=== PATIENT | female | born 1940 | race Caucasian/White ===

== ENCOUNTER → 2016-06-22 | Outpatient (CLI) | payer MEDICARE, BC | END | disposition home or self-care (01) | LOC: LABWHC1 13:19 | PROVIDERS: ATTEND Family Medicine | DX: K52.9 Noninfective gastroenteritis and colitis, unspecified (principal) | CPT/HCPCS: 87324; 87328; 87329 ==

== ENCOUNTER → 2016-07-29 | Outpatient (CLI) | payer MEDICARE, BC ==
[2016-07-29 10:40] LABS: Blood Urea Nitrogen 14 mg/dL (7-17); Non-African American GFR(MDRD) >60 (>60 ml/min/1.73 sqM)
--- NOTE | 2016-08-01 10:27 | MM ---
Reason for exam: screening (asymptomatic). Last mammogram was performed 7 years and 8 months ago. History: Patient is postmenopausal. Taking estrogen for 14 years 6 months. MG 3D Screening Mammo W/Cad Bilateral CC and MLO view(s) were taken. Prior study comparison: November 27, 2008, bilateral digital screening mammogram. November 27, 2007, bilateral digital screening mammogram. The breast tissue is heterogeneously dense. This may lower the sensitivity of mammography. There is chronic nodularity in the right breast. No significant changes when compared with prior studies. ASSESSMENT: Benign, BI-RAD 2 RECOMMENDATION: Routine screening mammogram of both breasts in 1 year.
--- NOTE | 2016-08-03 15:58 | CT ---
EXAMINATION TYPE: CT chest w con DATE OF EXAM: 07/29/2016 COMPARISON: Outside chest CT April 05, 2016 HISTORY: Follow up nodule per patient CT DLP: 672 mGycm. Automated Exposure Control for Dose Reduction was Utilized. TECHNIQUE: CT scan of the thorax is performed following with IV Contrast, patient injected with 100 mL of Omnipaque 300. FINDINGS: LUNGS: There is redemonstration of elevated right hemidiaphragm. There is adjacent right basilar atel ectasis and/or consolidation it is slightly more nodular on single axial image 27 measuring 1.2 x 0.8 cm but most likely still related to rounded atelectatic change. Previously visualized 4 mm vague den sity is not clearly seen, suspect volume averaging. A few scattered micronodules remain present. Ther e is calcified 3 mm nodule in the medial left upper lobe on axial image 11. There is some linear scar ring in the lingula redemonstrated. No new suspicious nodules or masses are present. No pleural effus ion or pneumothorax is noted. MEDIASTINUM: There are no greater than 1 cm hilar or mediastinal lymph nodes. Some small scattered th oracic lymph nodes are redemonstrated. No cardiomegaly or pericardial effusion is seen. Right thyr oid is not visualized and presumed surgically absent. Inferior to left thyroid there is heterogeneous 1.7 x 1.5 cm nodule peripheral hyperdensity and central hypodensity uncertain etiology not significa ntly changed from prior. OTHER: Cholecystectomy clips are redemonstrated. Liver remains low dense suggesting fatty infiltratio n. There is moderate multilevel spurring in the lower thoracic spine redemonstrated. A small hiatal h ernia is again seen. IMPRESSION: 1. Overall stable findings, right basilar finding likely reflects rounded atelectasis adjacent to are a of atelectasis related to elevated right hemidiaphragm. PET/CT can be performed to exclude hypermet abolic uptake. Neoplastic nodule felt much less likely. No new mass or adenopathy is seen. 2. Anterior superior mediastinal mass redemonstrated unchanged in appearance, differential includes e xtrathyroidal tissue, necrotic lymph node, or parathyroid lesion as noted on prior report.
== END | disposition home or self-care (01) ==
LOC: RADMAMWWP 10:08
PROVIDERS: ATTEND Family Medicine
DX: Z12.31 Encounter for screening mammogram for malignant neoplasm of breast (principal); R22.2 Localized swelling, mass and lump, trunk
CPT/HCPCS: 82565; 84520; 77063; 71260; 36415; G0202; Q9967

== ENCOUNTER 2016-08-01 07:15 | Day surgery (SDC) | payer MEDICARE, BC ==
[2016-07-28 11:34] VITALS: BMI 43.3
[~2016-08-01 07:15] MED LIST: LACTATED RINGERS 1,000 ML IV SCH
[2016-08-01 07:51] VITALS: RESP 16; TEMP 97.7
[2016-08-01] MEDS ORDERED: LIDOCAINE 1% 20 ML VIAL (10MG/ML) FOR IV START SQ ONE (07:51)
[2016-08-01 07:54] LABS: Glucose,Whole Blood 133 mg/dL (75-99)
[2016-08-01] MEDS ORDERED: ONDANSETRON 4 MG/2 ML VIAL IVP ONE (07:56)
[2016-08-01] MEDS ORDERED: DEXAMETHASONE SOD PHOSPHATE 10 MG/ML 1 ML VIAL IV ONE (07:57)
[2016-08-01] MEDS ORDERED: LIDOCAINE 1% INJ 10MG/ML (20 ML MDV) ONE (08:30)
[2016-08-01] MEDS ORDERED: PROPOFOL 10 MG/ML 20 ML VIAL IV ONE (08:30)
--- NOTE | 2016-08-01 09:19 | P.PCN ---
Date of Procedure: 08/01/16 Preoperative Diagnosis: Postoperative Diagnosis: Procedure(s) Performed: Procedures: Esophagogastroduodenoscopy and biopsy. Preoperative diagnosis: Epigastric pain and diarrhea. Postoperative diagnosis: 1. Hiatal hernia with no obvious esophagitis or complicated reflux disease. 2. Mild antral gastritis. 3. Normal colonoscopy to the cecum. Preparation: HalfLytely prep. Sedation: Was provided by anesthesia. Brief clinical history: The patient is a 75-year-old female who I have evaluated in the office regarding diarrhea that she has been experiencing since winter as well as epigastric pain that she has been having for several weeks. She had a prior colonoscopy several years ago but no upper endoscopy. This evaluation is to assess for peptic ulcer disease, complicated reflux disease or bowel pathology. Procedure: With the patient on her left lateral decubitus position and after informed consent and adequate sedation, I passed the Olympus-GIF 160 video upper endoscope through the cricopharyngeus down the esophagus. GE junction was around 32 cm from the incisors and there was a 2-3 cm sliding hiatal hernia. The esophagus did not show any obvious erosions, ulcers or Ceron's esophagus. There was a benign nonobstructing stricture at the level of the GE junction. The endoscope was then passed into the stomach which was insufflated with air and inspected in detail including the retroflex view in the cardia. There was some mottling and erythema in the antrum but no ulcers or erosions. Pyloric channel, duodenal bulb, post bulbar area and descending duodenum appeared within normal limits. Because of her symptoms, I obtained biopsies from the duodenum, antrum and esophagus then the endoscope was withdrawn and I proceeded with the colonoscopy. Perianal area did not show any fissures or fistulas. There were no masses felt on digital rectal examination. The Olympus CFQ 160L video colonoscope was then inserted in the rectum in the usual fashion and advanced to the cecum. The mucosa appeared healthy. There was no obvious edema, erythema, friability, ulceration or spontaneous bleeding. No polyps or tumors were seen. No obvious diverticular disease. I obtained biopsies from the Right colon I then retroflexed the endoscope in the rectum before the endoscope was withdrawn. The patient tolerated the procedure well. Plan: The patient was reassured. Will await biopsy results and make further plans. I will keep you updated on her progress. Implants: Indications for Procedure: Operative Findings: Description of Procedure:
[2016-08-01 09:28] VITALS: BP 151/74; PULSE 74
[2016-08-01 09:28] LABS: Glucose,Whole Blood 119 mg/dL (75-99)
== END 2016-08-01 10:00 | disposition home or self-care (01) ==
LOC: ORWHC2ENDO 07:15
DX: K29.70 Gastritis, unspecified, without bleeding (principal); K44.9 Diaphragmatic hernia without obstruction or gangrene; R19.7 Diarrhea, unspecified; I10 Essential (primary) hypertension; E78.5 Hyperlipidemia, unspecified; E11.9 Type 2 diabetes mellitus without complications; Z79.84 Long term (current) use of oral hypoglycemic drugs; E07.9 Disorder of thyroid, unspecified; Z79.82 Long term (current) use of aspirin; Z79.899 Other long term (current) drug therapy
CPT/HCPCS: 88305; 88342; 45380; 43239; J1100; J2405; J2001; J2704

== ENCOUNTER → 2017-08-14 | Outpatient (CLI) | payer MEDICARE, BC ==
--- NOTE | 2017-08-14 16:33 | BD ---
EXAMINATION TYPE: Axial Bone Density DATE OF EXAM: 08/14/2017 COMPARISON: NONE CLINICAL HISTORY: 76-year-old female postmenopausal screening Height: 4 FT 11 IN Weight: 232 FRAX RISK QUESTIONS: Secondary Osteoporosis: 3. Menopause before 45: YES RISK FACTORS HISTORY OF: Postmenopausal woman: PARTIAL HYST AGE 42 Take estrogen and/or progesterone medications: YES How lon YEARS Lost more than 2 inches in height since high school: YES MEDICATIONS: Thyroid Medications: YES Which medication: SYNTHROID How Long: APPROX 10 YEARS Additional Medications: PREMARIN,SYNTHROID, AMLODIPINE, ZETIA, L-THYROXINE, JANUVIA, VIT D3, Additional History: EXAM MEASUREMENTS: Bone mineral densitometry was performed using the [employer] (TTN) System. Bone mineral density as measured about the Lumbar spine is: ----- L1-L4(G/cm2): 1.344 T Score Values are as follows: ----- L2: 1.9 ----- L3: 1.3 ----- L4: 0.9 ----- L1-L4: 1.4 BASELINE Bone mineral density about the R hip (g/cm2): 0.847 Bone mineral density about the L hip (g/cm2): 0.826 T Score values are as follows: -----R Neck: -1.4 -----L Neck: -1.5 -----R Total: 0.1 -----L Total: 0.2 BASELINE IMPRESSION: Osteopenia (T Score between -2.5 and -1). There is slightly increased risk of fracture and the patient may be considered for treatment. Re-Screen 2-5 years. NOTE: T-SCORE=SD OF THE YOUNG ADULT MEAN.
--- NOTE | 2017-08-15 09:55 | MM ---
Reason for exam: screening (asymptomatic). Last mammogram was performed 1 year and 1 month ago. History: Patient is postmenopausal. Taking estrogen for 26 years 6 months beginning at age 50. Physical Findings: A clinical breast exam by your physician is recommended on an annual basis and results should be correlated with mammographic findings. MG 3D Screening Mammo W/Cad Bilateral CC and MLO view(s) were taken. Prior study comparison: July 29, 2016, bilateral MG 3d screening mammo w/cad. November 27, 2008, bilateral digital screening mammogram. The breast tissue is heterogeneously dense. This may lower the sensitivity of mammography. Finding: There are grouped/clustered calcifications in the central position of the left breast. ASSESSMENT: Incomplete: need additional imaging evaluation, BI-RAD 0 RECOMMENDATION: Special view mammogram of the left breast. [facility] will attempt to contact patient to return for supplemental views.
== END | disposition home or self-care (01) ==
LOC: RADMAMWWP 11:30
PROVIDERS: ATTEND Family Medicine
DX: Z12.31 Encounter for screening mammogram for malignant neoplasm of breast (principal); M85.80 Other specified disorders of bone density and structure, unspecified site; Z78.0 Asymptomatic menopausal state
CPT/HCPCS: 77063; 77067; 77080

== ENCOUNTER → 2017-08-29 | Outpatient (CLI) | payer MEDICARE, BC ==
--- NOTE | 2017-08-29 14:16 | MM ---
Reason for exam: additional evaluation requested from abnormal screening. Last mammogram was performed less than 1 month ago. History: Patient is postmenopausal. Taking estrogen for 26 years 6 months beginning at age 50. Physical Findings: Nurse did not find any significant physical abnormalities on exam. MG 3D Work Up W/Cad LT LM, CC with magnification, and LM with magnification view(s) were taken of the left breast. Prior study comparison: August 14, 2017, bilateral MG 3d screening mammo w/cad. July 29, 2016, bilateral MG 3d screening mammo w/cad. November 27, 2008, bilateral digital screening mammogram. Finding: There are intermediate concern, suspicious coarse heterogeneous, grouped/clustered calcifications in the middle position of the left breast, persists on additional images. These results were verbally communicated with the patient and result sheet given to the patient on 08/29/17. ASSESSMENT: Suspicious, BI-RAD 4 RECOMMENDATION: Stereotactic core biopsy of the left breast. Called Dr. Beckford with mammographic findings and has scheduled an appointment for the patient for 08/31/17 at 8:[address] Kennedy. PRELIMINARY REPORT CALLED AND FAXED TO DR. KENNEDY ON 08/29/17.
== END | disposition home or self-care (01) ==
LOC: RADMAMWWP 12:26
PROVIDERS: ATTEND Family Medicine
DX: R92.8 Other abnormal and inconclusive findings on diagnostic imaging of breast (principal)
CPT/HCPCS: 77065; G0279; 77061

== ENCOUNTER → 2017-08-31 | Outpatient (CLI) | payer MEDICARE, BC ==
[2017-08-31 08:30] VITALS: BP 160/72; PULSE 71; BMI 45.5
--- NOTE | 2017-08-31 09:04 | P.GSHP ---
History of Present Illness H&P Date: 08/31/17 The patient is a 77-year-old white female who presents with a recent mammogram done 08/14/17. On the mammogram there was an area of concern in the left breast for which additional views were obtained. On the additional views the patient was noted to have intermediate concern suspicious coarse heterogeneous group clustered calcifications in the middle portion of the left breast. This was considered to be suspicious BIRADS 4 and a stereotactic core biopsy was recommended. The patient denies any pain or masses in her breasts. Was a question of a left nipple change noted by the nurse when she had her mammogram performed. The patient herself is not concerned and has no nipple discharge. Family history: no history of cancer menarche: 13 : 3, 3 children first born at 20, breast fed: none menopause: 50 BCP: 10 years hormones: Premarin at least 20 years, to control menopausal symptoms Past surgical history: 1. Right thyroid lobectomy 2. Cholecystectomy 3. Partial hysterectomy ovaries were not removed this was done for bleeding 4. Tonsillectomy 5. Tympanoplasty 6. Bilateral knee replacement Medical history: 1. Hypertension 2. High cholesterol Social history: Smoking: Negative alcohol: Negative Drugs: Negative - Constitutional Constitutional: Denies chills, Denies fever - EENT Eyes: denies blurred vision, denies pain Ears: bilateral: tinnitus (Occasional, status post tympanoplasty right ear drum) , deny: decreased hearing Ears, nose, mouth and throat: Denies headache, Denies sore throat - Breasts Breasts: bilateral: as per HPI - Cardiovascular Cardiovascular: Reports high blood pressure, Reports shortness of breath, Denies chest pain - Respiratory Respiratory: Denies cough, Denies 7 - Gastrointestinal Gastrointestinal: Denies abdominal pain, Denies diarrhea, Denies nausea, Denies vomiting - Genitourinary (Female) Genitourinary: Denies dysuria, Denies hematuria - Menstruation Menstruation: Reports post hysterectomy - Musculoskeletal Comment: Osteopenia, arthritis, muscle aches at times, bilateral lower extremity swelling - Integumentary Comment: Skin changes related to bilateral lower extremity lymphedema Integumentary: Denies pruritus, Denies rash - Neurological Neurological: Denies numbness, Denies weakness - Psychiatric Psychiatric: Denies anxiety, Denies depression - Endocrine Comment: diabetes Endocrine: Denies fatigue, Denies weight change - Hematologic/Lymphatic Comment: baby aspirin, fish oil - Allergic/Immunologic Comment: none Past Medical History Past Medical History: Diabetes Mellitus, Hyperlipidemia, Hypertension, Thyroid Disorder History of Any Multi-Drug Resistant Organisms: None Reported Past Surgical History: Ear Surgery, Hernia Repair, Hysterectomy, Orthopedic Surgery, Tonsillectomy Additional Past Surgical History / Comment(s): Gall Bladder Removed 2014 Smoking Status: Never smoker - Past Family History Mother Family Medical History: Diabetes Mellitus, Hypertension Father Family Medical History: Diabetes Mellitus, Hypertension Medications and Allergies Home Medications Medication Instructions Recorded Confirmed Type Acetaminophen [Tylenol Arthritis] 1,300 mg PO HS 07/28/16 08/01/16 History Aspirin [Children's Aspirin] 81 mg PO DAILY 07/28/16 08/01/16 History Cholecalciferol (Vitamin D3) 2,000 unit PO DAILY 07/28/16 08/01/16 History [Vitamin D3] Estrogens, Conjugated [Premarin] 1.25 mg PO HS 07/28/16 08/01/16 History Ezetimibe [Zetia] 10 mg PO HS 07/28/16 08/01/16 History Latanoprost [Xalatan 0.005%] 1 drop BOTH EYES HS 07/28/16 08/01/16 History Levothyroxine Sodium [Synthroid] 25 mcg PO QAM 07/28/16 08/01/16 History amLODIPine BESYLATE/BENAZEPRIL 1 cap PO HS 07/28/16 08/01/16 History [Lotrel 10-20 mg Capsule] metFORMIN HCL [Metformin HCl] 850 mg PO BID 07/28/16 08/01/16 History Allergies Allergy/AdvReac Type Severity Reaction Status Date / Time No Known Allergies Allergy Verified 08/01/16 07:33 Surgical - Exam Vital Signs Pulse BP Pulse Ox 71 160/72 96 08/31/17 08:20 08/31/17 08:20 08/31/17 08:20 - General obese - Eyes normal ocular movement, no icteric - ENT no hearing loss, no congestion - Neck no masses, trachea midline - Respiratory normal respiratory effort, clear to auscultation - Cardiovascular Rhythm: regular Heart Sounds: normal: S1, S2 - Abdomen Abdomen: soft, non tender, no guarding, no rigid, no rebound - Integumentary Bilateral lower extremity lymphedema below the knees with skin changes - Neurologic no disoriented, no combative - Musculoskeletal normal posture - Psychiatric oriented to time, oriented to person, oriented to place, speech is normal, memory intact Breast examination: Right breast: Multi-positional exam no dominant masses or nodules of concern Right axilla: No adenopathy of concern Left breast: Multiple positional exam a dominant masses or nodules of concern, small cystic change at the nipple area Left axilla: No adenopathy of concern Results Bone density reviewed Mammogram results reviewed Assessment and Plan Assessment: bilateral mammogram showing an area of increased microcalcifications in the left breast for which stereotactic core biopsy is recommended 2. Osteopenia on recent bone density 3. Hypertension 4. Diabetes 5. High cholesterol 6. Status post bilateral knee replacement 7. Bilateral lower extremity lymphedema Plan: 1. Stereotactic core biopsy area of microcalcifications in the left breast 2. Medical management of medical conditions 3. Patient has been seen and evaluated for lymphedema and will continue treatment for this in [place] Cc: Dr. Moises Beckford The risks and benefits of stereotactic core biopsy were discussed with the patient. She and her are planning on a trip within the next 2 weeks and would like to facilitate this as soon as possible. Additionally it has been discussed with the patient that she has been on low-dose aspirin and fish oil which she will have been off for 4 days prior to the procedure. She understands that she may be a slightly increased risk for hematoma secondary to this and wishes to proceed. Risks of the procedure include bleeding infection reaction to the anesthetic and possibility of not having an adequate sample she and her understand and wish to proceed.
== END | disposition home or self-care (01) ==
LOC: WWCWWP 08:14
PROVIDERS: ATTEND Surgery
DX: Z53.9 Procedure and treatment not carried out, unspecified reason (principal)

== ENCOUNTER → 2017-09-01 | Day surgery (SDC) | payer MEDICARE, BC ==
[2017-09-01 07:27] VITALS: RESP 16; BMI 44.5
--- NOTE | 2017-09-01 08:59 | MM ---
EXAMINATION TYPE: MG stereo VAD BX LT DATE OF EXAM: 09/01/2017 COMPARISON: 3-D mammogram from 3 days ago and older mammograms CLINICAL HISTORY: Abnormal mammogram TECHNIQUE: Stereotactic guided core biopsy of left breast. FINDINGS: The procedure of stereotactic guided core biopsy was explained to the patient. Benefits, alternatives, and risks were discussed. An informed consent was then obtained. [facility] Shortness pathway was lateral approach. I performed the localization, then surgeon, Dr. Knenedy performed the remainder of the procedure. A vacuum assisted biopsy gun was used to obtain multiple core samples. The patient tolerated the procedure well without any immediate complication. The patient was kept in the radiology department for short stay after the procedure and then discharged home in stable condition. Targeted calcifications are identified in specimen mammogram. Post biopsy mammogram shows the clip to appear in relative satisfactory position relative to the targeted area of concern on the preprocedure images. No significant residual calculi are seen. Perhaps clip is 1 to 2 cm laterally migrated. IMPRESSION: SUCCESSFUL, UNCOMPLICATED STEREOTACTIC GUIDED CORE BIOPSY OF AREA OF CONCERN IN THE LEFT BREAST, FULL PATHOLOGY RESULTS TO FOLLOW. Low to intermediate index of suspicion noted at time of procedure Pathology Results: High Risk LEFT BREAST, NEEDLE CORE BIOPSIES: Proliferative fibrocystic changes including moderate to florid duct hyperplasia, intraductal papillomatosis and duct ectasia. Intraductal mineralizations are identified. Recommendation Surgical consult of the left breast. (intraductal papillomatosis) MTDD
[2017-09-01 09:22] VITALS: BP 140/78; PULSE 77; TEMP 97.9
== END | disposition home or self-care (01) ==
LOC: RADMAMWWP 07:00
PROVIDERS: ATTEND Surgery
DX: D24.2 Benign neoplasm of left breast (principal); N60.92 Unspecified benign mammary dysplasia of left breast; N60.42 Mammary duct ectasia of left breast; N60.12 Diffuse cystic mastopathy of left breast
CPT/HCPCS: 88305; 19081; A4648; J2001

== ENCOUNTER → 2017-09-07 | Outpatient (CLI) | payer MEDICARE, BC ==
--- NOTE | 2017-09-07 14:40 | P.PN ---
Progress Note - Text Progress Note Date: 09/07/17 The patient is status post a left breast stereotactic core biopsy. Pathology revealed intraductal papillomatosis. The patient has no complaints related to the biopsy. Secondary to the fact there is intraductal papillomatosis an open biopsy and excision has been recommended. Physical examination: Patient has mild ecchymosis and small hematoma at the stereotactic core site. No evidence of any infection Impression/plan: 1. Stereotactic core biopsy revealing intraductal papilloma 2. Needle localization and excision the operating room recommended Risk and benefits of procedure been discussed with the patient and her and they wish to proceed. These include but are not limited to bleeding infection reaction to the anesthetic inability to localize the area and inability to retrieve the area of concern. CC: Dr. Moises Beckford
[2017-09-07 14:58] VITALS: BP 151/78; PULSE 81; TEMP 97.5; BMI 45.3
== END ==
LOC: WWCWWP 12:59
PROVIDERS: ATTEND Surgery
DX: Z53.9 Procedure and treatment not carried out, unspecified reason (principal)

== ENCOUNTER → 2017-09-08 | Outpatient (CLI) | payer MEDICARE, BC ==
--- NOTE | 2017-09-08 13:55 | CT ---
EXAMINATION TYPE: CT chest w con DATE OF EXAM: 09/08/2017 COMPARISON: 07/29/2016 HISTORY: Solitary pulmonary nodule CT DLP: 422.10 mGycm, Automated exposure control for dose reduction was used. CONTRAST: Performed injected with 100 ml mL of Isovue 300. TECHNIQUE: Axial images were obtained at 5 mm thick sections. Reconstructed images are reviewed on [employer] computer in the coronal plane. FINDINGS: Retrosternal extension of the left lobe thyroid is not excluded. This has a central hypoden sity. Peripherally enhancing mass could be considered. This measures 2.1 x 1.9 cm which is larger shannon n 1.7 x 1.5 cm previous. There appears to be a right lobectomy of the thyroid. Couple of scattered bulla are present. There is a 0.2 cm density on the anterior right midlung. Serie s 4 image 1. Streak opacities in the right. There is elevation of the right diaphragm No enlarged mediastinal or hilar adenopathy is evident. Small pretracheal measuring 0.7 cm is noted The ascending aorta diameter at the level of the main pulmonary artery is 3.5 cm. The main pulmonary artery diameter at the bifurcation is 2.[address] sections are obtained through the upper abdomen. There is moderate fatty infiltration live r. Hiatal hernia is present. IMPRESSIONS: 1. Enlarging retrosternal mass.
== END | disposition home or self-care (01) ==
LOC: RADCTMAIN 08:44
PROVIDERS: ATTEND Family Medicine
DX: J98.59 Other diseases of mediastinum, not elsewhere classified (principal)
CPT/HCPCS: 71260; Q9967

== ENCOUNTER 2017-09-12 06:34 | Day surgery (SDC) | payer MEDICARE, BC ==
[2017-09-08 10:56] VITALS: BMI 45.7
[~2017-09-12 06:34] MED LIST changes: +DEXAMETHASONE SOD PHOSPHATE 10 MG/ML 1 ML VIAL IV ONE; +HEPARIN SODIUM,PORCINE 5,000 UNIT/ML 1 ML VIAL SQ ONE; +MIDAZOLAM 2 MG/2 ML VIAL IV PRN; +ONDANSETRON 4 MG/2 ML VIAL IVP ONE; +SCOPOLAMINE 1.5MG/72HR PATCH TRANSDERM ONE; +ceFAZolin IN SWFI 2 GM/20 ML SYRINGE IVP ONE; +fentaNYL (PF) 50 MCG/ML 2 ML AMP IV PRN
[2017-09-12 07:13] LABS: Glucose,Whole Blood 135 mg/dL (75-99)
[2017-09-12] MEDS ORDERED: LIDOCAINE 1% 20 ML VIAL (10MG/ML) FOR IV START INTRADERMA ONE (07:14)
[2017-09-12] MEDS ORDERED: ALPRAZolam 0.25 MG TAB PO ONE (07:15)
[2017-09-12] MEDS ORDERED: SODIUM BICARB 4% 5 ML VIAL (0.48 MEQ/ML) MISCELLANE ONE (08:45)
[2017-09-12] MEDS ORDERED: LIDOCAINE 1% INJ 10MG/ML (20 ML MDV) SQ ONE (08:45)
[2017-09-12] MEDS ORDERED: ONDANSETRON 4 MG/2 ML VIAL ONE (09:42)
[2017-09-12] MEDS ORDERED: ePHEDrine SULFATE/0.9% NACL/PF 50 MG/5 ML SYRINGE IV ONE (09:42)
[2017-09-12] MEDS ORDERED: SUCCINYLCHOLINE CHLORIDE 100 MG/5 ML SYR IV ONE (09:42)
[2017-09-12] MEDS ORDERED: fentaNYL (PF) 50 MCG/ML 2 ML AMP ONE (09:42)
[2017-09-12] MEDS ORDERED: MIDAZOLAM 2 MG/2 ML VIAL ONE (09:42)
[2017-09-12] MEDS ORDERED: ROCURONIUM BROMIDE 10 MG/ML 10 ML VIAL IV ONE (09:42)
[2017-09-12] MEDS ORDERED: PROPOFOL 10 MG/ML 20 ML VIAL IV ONE (09:42)
[2017-09-12] MEDS ORDERED: LIDOCAINE 1% INJ 10MG/ML (20 ML MDV) ONE (09:42)
[2017-09-12] MEDS ORDERED: HEPARIN SODIUM,PORCINE 5,000 UNIT/ML 1 ML VIAL SQ ONE (09:46)
[2017-09-12] MEDS ORDERED: LIDOCAINE 1% (PF) 10 MG/ML (30 ML SDV) SQ ONE (10:06)
--- NOTE | 2017-09-12 11:08 | P.OP ---
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 Pathology revealed papillomatosis. Additionally the patient has an elevated area on the left nipple which appears to have blood underneath this. This was present prior to her stereotactic core biopsy. The patient was taken to the operating room and following induction of anesthesia the left breast was prepped and draped in a sterile fashion. An incision was made and carried down to the hook of the needle. Surrounding tissue was excised. Hemostasis was attained using the electrocautery device. Careful dissection followed this tissue anteriorly to the duct complex underneath the nipple. This area was removed. Small area of the skin of the nipple was removed as well. Dissection was performed posteriorly to the chest wall. After we were assured that hemostasis was attained the wound was well irrigated. The area was marked using titanium clips. Oculoplastic tissue rearrangement was performed to close the defect. Approximately 5 cm by 5 cm of tissue was mobilized. The deep spaces were closed using a 3-0 Vicryl suture. The subcutaneous tissue was closed using a 4-0 Vicryl suture. The skin was closed using a 4-0 Monocryl. Steri-Strips were applied. The specimen was painted for orientation. The specimen was sent for x-ray which confirmed that the area of concern had been removed. All instrument and sponge counts were correct at the end of the case. The patient tolerated the procedure in stable condition.
--- NOTE | 2017-09-12 11:11 | P.DS ---
Providers Attending physician: Chelsea Kennedy Primary care physician: Moises Beckford Plan - Discharge Summary New Discharge Prescriptions: No Action amLODIPine BESYLATE/BENAZEPRIL [Lotrel 10-20 mg Capsule] 1 cap PO HS Levothyroxine Sodium [Synthroid] 25 mcg PO QAM Ezetimibe [Zetia] 10 mg PO HS Latanoprost [Xalatan 0.005%] 1 drop BOTH EYES HS Cholecalciferol (Vitamin D3) [Vitamin D3] 2,000 unit PO DAILY Aspirin [Children's Aspirin] 81 mg PO DAILY Acetaminophen [Tylenol Arthritis] 1,300 mg PO HS Calcium Carbonate/Vitamin D3 [Calcium 600-Vit D3 500 Softgel] 1 cap PO BID Vitamin E Acetate [Vitamin E] 200 unit PO HS sitaGLIPtin PHOSPHATE [Januvia] 100 mg PO DAILY Discharge Medication List Acetaminophen [Tylenol Arthritis] 1,300 mg PO HS 07/28/16 [History] Aspirin [Children's Aspirin] 81 mg PO DAILY 07/28/16 [History] Cholecalciferol (Vitamin D3) [Vitamin D3] 2,000 unit PO DAILY 07/28/16 [History] Ezetimibe [Zetia] 10 mg PO HS 07/28/16 [History] Latanoprost [Xalatan 0.005%] 1 drop BOTH EYES HS 07/28/16 [History] Levothyroxine Sodium [Synthroid] 25 mcg PO QAM 07/28/16 [History] amLODIPine BESYLATE/BENAZEPRIL [Lotrel 10-20 mg Capsule] 1 cap PO HS 07/28/16 [ History] Calcium Carbonate/Vitamin D3 [Calcium 600-Vit D3 500 Softgel] 1 cap PO BID 08/31 [History] Vitamin E Acetate [Vitamin E] 200 unit PO HS 08/31/17 [History] sitaGLIPtin PHOSPHATE [Januvia] 100 mg PO DAILY 08/31/17 [History] Follow up Appointment(s)/Referral(s): Chelsea Kennedy MD [STAFF PHYSICIAN] - 1 Week Activity/Diet/Wound Care/Special Instructions: do not drive today may shower after 48 hours wear bra at all times Discharge Disposition: HOME SELF-CARE
[2017-09-12 11:24] VITALS: TEMP 98.4
[2017-09-12 11:33] VITALS: RESP 18
[2017-09-12] MEDS ORDERED: ACETAMINOPHEN TAB 325 MG TAB PO ONE (12:31)
[2017-09-12 13:04] VITALS: BP 158/69; PULSE 92
--- NOTE | 2017-09-12 17:13 | MM ---
EXAMINATION TYPE: MG pre op needle loc LT, MG surgical specimen LT DATE OF EXAM: 09/12/2017 COMPARISON: 08/14/2017 and 09/01/2017 CLINICAL HISTORY: 77-year-old female abnormal mammogram, biopsy proven papillomatosis TECHNIQUE: Needle localization with wire placement and surgical excision of area of concern in the left breast. FINDINGS: The procedure of needle localization with wire placement and than surgical excision was explained to the patient. Benefits, alternatives, and risks were discussed. An informed consent was then obtained. The shortest pathway for procedure was chosen. Shortest pathway was a lateral approach. The overlying skin was prepped and draped in usual sterile fashion. Lidocaine buffered with bicarbonate was used as anesthetic into the skin and subcutaneous tissue up to the level of area of concern. A 7 cm needle was used. It was placed via a lateral approach under mammographic guidance. A lateral approach was also chosen given the 1.5 to 2 cm of lateral clip migration. Subsequent 90 degrees mammogram show the needle to be in satisfactory position relative to the targeted area. At this point, wire was placed and the needle was withdrawn. The wire was fixed to patient's skin. Images were marked for surgeon. The wire was placed so that the tip of the wire is at the biopsy site. The clip falls along the mid aspect of the thick segment. The patient tolerated the procedure well without any immediate complication. The patient was kept in the radiology department for short stay after the procedure and then taken to surgery for surgical excision. Clip and wire are identified in specimen mammogram. An additional excision was performed of more medial tissue and is also included in the specimen container. The patient was kept in hospital for short stay after the procedure and then discharged home in stable condition. IMPRESSION: Successful, uncomplicated needle localization with wire placement and surgical excision of biopsy proven papillomatosis in the left breast, full pathology results to follow. Pathology Results: High Risk A. BREAST, LEFT, NEEDLE LOCALIZATION EXCISION: Intraductal papilloma closely approximating the purple/yellow (posterior/medial) margin, cannot exclude involvement of the margin. Proliferative fibrocystic changes including moderate to florid usual type ductal hyperplasia, cysts, fibrosis, sclerosing adenosis, fibroadenomatoid hyperplasia and apocrine metaplasia. Previous biopsy site. B. 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 Severely cauterized breast tissue with fibrosis. Evaluation limited due to severe cautery artifact. Recommendation Follow up mammogram of the left breast in 6 months. JENNIFERD
== END 2017-09-12 13:22 | disposition home or self-care (01) ==
LOC: OR 06:34
PROVIDERS: ATTEND Surgery
DX: D24.2 Benign neoplasm of left breast (principal); N60.32 Fibrosclerosis of left breast; N60.22 Fibroadenosis of left breast; N62 Hypertrophy of breast; N60.82 Other benign mammary dysplasias of left breast; M85.80 Other specified disorders of bone density and structure, unspecified site; I10 Essential (primary) hypertension; E11.9 Type 2 diabetes mellitus without complications; E78.00 Pure hypercholesterolemia, unspecified; E89.0 Postprocedural hypothyroidism; M19.90 Unspecified osteoarthritis, unspecified site; Z79.84 Long term (current) use of oral hypoglycemic drugs; Z79.82 Long term (current) use of aspirin; Z79.890 Hormone replacement therapy; Z79.899 Other long term (current) drug therapy; Z96.653 Presence of artificial knee joint, bilateral; Z90.710 Acquired absence of both cervix and uterus; Z90.49 Acquired absence of other specified parts of digestive tract
CPT/HCPCS: 19125; 88305; 88307; 76098; 19281; J2250; J1644; J1100; J2405; J2001 ×2; J3010; J0330; J2704; J0690

== ENCOUNTER → 2017-09-22 | Outpatient (CLI) | payer MEDICARE, BC ==
[2017-09-22 09:58] VITALS: PULSE 76; BMI 43.9
--- NOTE | 2017-09-22 10:03 | P.PN ---
Progress Note - Text Progress Note Date: 09/22/17 Patient is status post left breast needle localization and excisional biopsy of an intraductal papilloma found on stereo biopsy. Pathology was consistent with intraductal papilloma with possible encroachment on the margins. The patient at this time has no complaints related to the biopsy. Physical examination: Incision clean and dry mild ecchymosis I have discussed the case with pathology there is no atypia and at this time the patient is going to be followed conservatively. The patient is going to have a repeat left breast mammogram and physician exam in 6 months time. Plan: 1. Repeat left breast mammogram and physician exam in 6 months Cc: Dr. Moises Beckford
== END ==
LOC: WWCWWP 09:37
PROVIDERS: ATTEND Surgery
DX: Z53.9 Procedure and treatment not carried out, unspecified reason (principal)

== ENCOUNTER → 2018-07-04 | Outpatient (CLI) | payer MEDICARE ==
--- NOTE | 2018-07-04 10:49 | MM ---
Reason for exam: follow-up at short interval from prior study. Last mammogram was performed 10 months ago. History: Patient is postmenopausal and has history of high-risk lesion on a previous biopsy at age 77. High risk MG pre op needle loc LT of the left breast, September 12, 2017. High risk MG stereo VAD BX LT of the left breast, September 01, 2017. Taking estrogen for 26 years 6 months beginning at age 50. Physical Findings: Nurse did not find any significant physical abnormalities on exam. MG 3D Diag Mammo W/Cad LT CC, MLO, and XCCL view(s) were taken of the left breast. Prior study comparison: August 29, 2017, left breast MG 3d work up w/cad LT. August 14, 2017, bilateral MG 3d screening mammo w/cad. There are scattered fibroglandular densities. No significant new findings when compared with previous films. These results were verbally communicated with the patient and result sheet given to the patient on 07/04/18. ASSESSMENT: Benign, BI-RAD 2 RECOMMENDATION: Return to routine screening mammogram schedule for both breasts. Back on schedule for August 2018.
== END | disposition home or self-care (01) ==
LOC: RADMAMWWP 10:07
PROVIDERS: ATTEND Surgery
DX: R92.8 Other abnormal and inconclusive findings on diagnostic imaging of breast (principal)
CPT/HCPCS: 77065; G0279; 77061

== ENCOUNTER → 2018-07-06 | Outpatient (CLI) | payer MEDICARE ==
[2018-07-06 10:58] VITALS: BP 179/79; PULSE 77; RESP 18; TEMP 97.8; BMI 42.3
--- NOTE | 2018-07-06 11:14 | P.PN ---
Subjective Progress Note Date: 07/06/18 Principal diagnosis: Status post open biopsy of intraductal papilloma Juana is a 77-year-old white female who is status post needle local excisional biopsy of an left intraductal papilloma in August 2017. She is doing well at this time with no complaints. She had a left breast mammogram performed on . This was felt to be benign and repeat bilateral mammogram in August 2018 was recommended. Family history: Negative for cancer Hormonal history: Menarche: 13 first child born at 20, did not breast-feed Menopause: 50 control pills: 10 years Hormones: Premarin at least 20 years to control menopausal symptoms Past surgical history: 1. Right thyroid lobectomy 2. Cholecystectomy 3. Partial hysterectomy 4. Tonsillectomy 5. Tympanoplasty 6. Bilateral knee replacement Medical history: 1. Hypertension 2. High cholesterol Social history: Smoking: Negative Alcohol: Negative Drugs: Negative Review of systems: Constitutional: Negative HEENT: Cataracts developing in the right eye, wears glasses Lungs: Negative Heart: HTN GI: Negative : Negative Musculoskeletal: Arthritis Integument: Negative Endocrine: Diabetic Psychiatric: Negative Objective - Vital Signs Vital signs: Vital Signs Temp 97.8 F 07/06/18 10:54 Pulse 77 07/06/18 10:54 Resp 18 07/06/18 10:54 BP 179/79 07/06/18 10:54 Pulse Ox 96 07/06/18 10:54 Intake & Output 07/05/18 07/06/18 07/06/18 18:59 06:59 18:59 Weight 98.43 kg - Exam BMI 42.4 - Constitutional General appearance: Present: obese - EENT Eyes: Present: EOMI ENT: Present: hearing grossly normal - Neck Neck: Present: normal ROM - Respiratory Respiratory: bilateral: CTA - Cardiovascular Rhythm: regular Heart sounds: normal: S1, S2 - Gastrointestinal General gastrointestinal: Present: soft - Integumentary Integumentary Comment(s): no icterus Integumentary: Present: normal turgor - Musculoskeletal Musculoskeletal: Present: gait normal - Psychiatric Psychiatric: Present: A&O x's 3, appropriate affect, intact judgment & insight - Additional findings Additional findings: Breast Exam: right breast: Multi-positional exam no dominant mass or nodules of concern Right axilla: No adenopathy of concern Left breast: Well-healed scar from prior biopsy, multiple positional exam no dominant mass or nodules of concern Left axilla: No adenopathy of concern Assessment and Plan Assessment: Impression: 1. Fibrocystic breast changes 2. Osteopenia 3. Hypertension 4. Diabetes 5. High cholesterol 6. Bilateral knee replacement 7. Bilateral lower extremity lymphedema/treated in [place] and much improved Plan: 1. Right breast mammogram in August, follow-up. If any abnormalities noted in August 2. Bilateral mammogram in 1 year, physician appointment at that time here 3. Patient to call if any concerns Cc: Dr. Moises Beckford
== END | disposition home or self-care (01) ==
LOC: WWCWWP 10:30
PROVIDERS: ATTEND Surgery
DX: Z53.9 Procedure and treatment not carried out, unspecified reason (principal)

== ENCOUNTER → 2018-09-27 | Outpatient (CLI) | payer MEDICARE ==
--- NOTE | 2018-09-27 11:21 | MM ---
Reason for exam: follow-up at short interval from prior study. Last mammogram was performed 3 months ago. History: Patient is postmenopausal and has history of high-risk lesion on a previous biopsy at age 77. High risk MG pre op needle loc LT of the left breast, September 12, 2017. High risk MG stereo VAD BX LT of the left breast, September 01, 2017. Took estrogen for 26 years 6 months beginning at age 50. Physical Findings: Nurse did not find any significant physical abnormalities on exam. MG 3D Diag Mammo W/Cad RT CC, MLO, CC with magnification, MLO with magnification, and LM view(s) were taken of the right breast. Prior study comparison: July 04, 2018, left breast MG 3d diag mammo w/cad LT. August 29, 2017, left breast MG 3d work up w/cad LT. The breast tissue is heterogeneously dense. This may lower the sensitivity of mammography. There are right calcifications in the right upper outer quadrant at middle depth appear rounded in configuration and punctate. Left recent biopsy of sclerosing adenosis. 6 month follow up recommended. These results were verbally communicated with the patient and result sheet given to the patient on 09/27/18. ASSESSMENT: Probably benign, BI-RAD 3 RECOMMENDATION: Follow-up diagnostic mammogram of the right breast in 6 months.
== END | disposition home or self-care (01) ==
LOC: RADMAMWWP 09:21
PROVIDERS: ATTEND Surgery
DX: R92.8 Other abnormal and inconclusive findings on diagnostic imaging of breast (principal)
CPT/HCPCS: 77061; 77065

== ENCOUNTER → 2019-01-21 | Outpatient (CLI) | payer MEDICARE ==
[2019-01-21 16:47] LABS: African American GFR (CKD) >90 (>60 ml/min/1.73 sqM); Blood Urea Nitrogen 20 mg/dL (7-17); Non-African American GFR(CKD) 86 (>60 ml/min/1.73 sqM)
--- NOTE | 2019-01-22 07:01 | US ---
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 0.9 X 0.8 x 0.6 cm isoechoic solid nodule at the upper pole with well-defined margins; . This n odule is wider than tall and shows intranodular vascularity. Prior size: no prior 2. 0.8 X 0.6 x 0.9 cm mixed nodule at the mid pole with well-defined margins; . This nodule is wide r than tall and shows no intranodular vascularity. Prior size: no prior ISTHMUS: # of nodules measured in the isthmus: 0 Bilateral neck scanned, no evidence of lymphadenopathy. Multiple thyroid nodules noted left lobe with largest 2 measured IMPRESSION: Multiple left-sided thyroid nodules the largest measuring 9 mm. Thyroid tissue is heterogeneous corre late for thyroiditis.
--- NOTE | 2019-01-22 08:39 | CT ---
EXAMINATION TYPE: CT chest w con DATE OF EXAM: 01/21/2019 COMPARISON: 09/08/2017 and 07/29/2016 HISTORY: Anomalies of other endocrine glands. CT DLP: 423.2 mGycm. Automated Exposure Control for Dose Reduction was Utilized. TECHNIQUE: CT scan of the thorax is performed following with IV Contrast, patient injected with 100m l mL of Isovue 300. FINDINGS: LUNGS: The lungs are grossly clear, there is no concerning parenchymal mass or nodule identified. L inear pleural parenchymal scarring in the right middle lobe is seen. Calcified right basilar granulom a. Granuloma in the left lung apex appears calcified on the prior exam. Left apical bleb is seen. Rig ht basilar atelectasis is present along the elevated right hemidiaphragm. There is no pleural effusio n or pneumothorax seen. The tracheobronchial tree is patent. 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 This is questionably contiguous with the thyroid gland. No new mediastinal adenopathy. Calcified mediastinal lymph nodes from benign granulomatous change. No pericardial effusi on is seen. OTHER: Headache steatosis is partially visualized. Small hiatal hernia. Mild multilevel degenerative change of the spine. Gallbladder surgically absent. Post surgical change of the left breast. IMPRESSION: 1. Stable superior mediastinal mass in comparison to the prior of 09/08/2017, slightly enlarged from . Differential remains unchanged with possibilities including extrathyroidal tissue, exophyti c nodule, necrotic lymph node or parathyroid lesion. 2. Right hemidiaphragm elevation is chronic with right basilar atelectasis.
== END | disposition home or self-care (01) ==
LOC: RADUSWWP 15:27
PROVIDERS: ATTEND Family Medicine
DX: E04.2 Nontoxic multinodular goiter (principal); R22.2 Localized swelling, mass and lump, trunk; J98.11 Atelectasis; Q89.2 Congenital malformations of other endocrine glands; I10 Essential (primary) hypertension
CPT/HCPCS: 82565; 84520; 76536; 71260; 36415; Q9967

== ENCOUNTER 2019-05-17 11:45 | Emergency (ER) | payer MEDICARE ==
--- NOTE | 2019-05-17 12:08 | ED ---
General Adult HPI - General Chief complaint: Extremity Problem,Nontraumatic Stated complaint: L leg swelling Time Seen by Provider: 05/17/19 11:55 Source: patient, RN notes reviewed Mode of arrival: ambulatory Limitations: no limitations - History of Present Illness Initial comments: 78-year-old female with a past medical history of hyperlipidemia, hypertension, diabetes mellitus presents to the emergency department for a chief complaint of left lower leg swelling. Patient states that this has been ongoing for about one week and has associated redness. Patient states that she called her doctor and they were concerned for possible DVT versus cellulitis given patient recently drove from [place] to [place] about 3 weeks ago. Patient has not had a ny fevers or chills. Patient has a history of leg swelling but usually it is in both legs. States that she uses compression stockings wrist with the do not seem to be helping at this point. Patient does not have any slowing of the right leg. She denies shortness of breath or chest pain. Denies chest pain or shortness of breath.Patient has no other complaints at this time including shortness of breath, chest pain, abdominal pain, nausea or vomiting, headache, or visual changes. - Related Data Home Medications Medication Instructions Recorded Confirmed Acetaminophen [Tylenol Arthritis] 1,300 mg PO HS 07/28/16 07/06/18 Cholecalciferol (Vitamin D3) 2,000 unit PO DAILY 07/28/16 07/06/18 [Vitamin D3] Ezetimibe [Zetia] 10 mg PO HS 07/28/16 07/06/18 Latanoprost [Xalatan 0.005%] 1 drop BOTH EYES HS 07/28/16 07/06/18 Levothyroxine Sodium [Synthroid] 25 mcg PO QAM 07/28/16 07/06/18 amLODIPine BESYLATE/BENAZEPRIL 1 cap PO HS 07/28/16 07/06/18 [Lotrel 10-20 mg Capsule] Calcium Carbonate/Vitamin D3 1 cap PO BID 08/31/17 07/06/18 [Calcium 600-Vit D3 500 Softgel] Vitamin E Acetate [Vitamin E] 200 unit PO HS 08/31/17 07/06/18 sitaGLIPtin PHOSPHATE [Januvia] 100 mg PO DAILY 08/31/17 07/06/18 Previous Rx's Medication Instructions Recorded Cephalexin [Keflex] 500 mg PO Q6HR 10 Days #40 cap 05/17/19 Allergies Allergy/AdvReac Type Severity Reaction Status Date / Time No Known Allergies Allergy Verified 05/17/19 11:53 Review of Systems ROS Statement: Those systems with pertinent positive or pertinent negative responses have been documented in the HPI. ROS Other: All systems not noted in ROS Statement are negative. Past Medical History Past Medical History: Diabetes Mellitus, Hyperlipidemia, Hypertension, Thyroid Disorder Additional Past Medical History / Comment(s): GLAUCOMA. OSTEOPENIA. LOWER LEG EDEMA, REDNESS. History of Any Multi-Drug Resistant Organisms: C-DIFF Date of last positivie culture/infection: 2013 MDRO Source:: stool Past Surgical History: Cholecystectomy, Ear Surgery, Hysterectomy, Orthopedic S urgery, Tonsillectomy Additional Past Surgical History / Comment(s): bilateral knee replacements Past Anesthesia/Blood Transfusion Reactions: Postoperative Nausea & Vomiting (PONV) Past Psychological History: No Psychological Hx Reported Smoking Status: Never smoker Past Alcohol Use History: None Reported Past Drug Use History: None Reported - Past Family History Mother Family Medical History: Diabetes Mellitus, Hypertension Father Family Medical History: Cancer, Diabetes Mellitus, Hypertension General Exam Limitations: no limitations General appearance: alert, in no apparent distress Head exam: Present: atraumatic, normocephalic, normal inspection Eye exam: Present: normal appearance, PERRL, EOMI. Absent: scleral icterus, conjunctival injection, periorbital swelling ENT exam: Present: normal exam, mucous membranes moist Neck exam: Present: normal inspection, full ROM. Absent: tenderness, meningismus, lymphadenopathy Respiratory exam: Present: normal lung sounds bilaterally. Absent: respiratory distress, wheezes, rales, rhonchi, stridor Cardiovascular Exam: Present: regular rate, normal rhythm, normal heart sounds. Absent: systolic murmur, diastolic murmur, rubs, gallop, clicks GI/Abdominal exam: Present: soft, normal bowel sounds. Absent: distended, tenderness, guarding, rebound, rigid Extremities exam: Present: full ROM (Full range of motion of the left lower extremity.), normal capillary refill (Capillary refill less than 2 seconds, DP pulse 2+ in the left lower extremity.), calf tenderness (Minimal generalized calf tenderness as well as anterior lower extremity tenderness), other (There is mild nonpitting edema noted of the left lower extremity with mild erythema along the mid tibial area. Right lower extremity appears normal. There is no edema.). Absent: tenderness, pedal edema, joint swelling Neurological exam: Present: alert Course Vital Signs 05/17/19 11:47 Temperature 97.6 F Pulse Rate 101 H Respiratory 20 Rate Blood Pressure 180/91 O2 Sat by Pulse 95 Oximetry Medical Decision Making - Medical Decision Making Patient presents with some mild edema of the left lower extremity and mild erythema. Neurovascular status intact in the left lower extremity. CBC is unremarkable. CMP does show hyperglycemia, patient does have a history of diabetes and takes Januvia. Patient just ate prior to arrival and has been checking her blood sugar every morning when she wakes up. She will follow up with Dr. Beckford for this. Ultrasound of the left lower extremity is negative for DVT. Patient likely has a cellulitis. Borderline leukocytosis. She was treated with IV Rocephin here in the emergency department and started on Keflex. She will follow up with primary care in 1-2 days. She'll return here if she has worsening symptoms. I discussed this case with attending Dr. Mack who agrees with this assessment and treatment plan.H - Lab Data Result diagrams: 05/17/19 12:15 05/17/19 12:15 Lab Results 05/17/19 05/17/19 Range/Units 12:15 12:15 WBC 9.4 (3.8-10.6) k/uL RBC 5.63 H (3.80-5.40) m/uL Hgb 16.4 H (11.4-16.0) gm/dL Hct 49.9 H (34.0-46.0) % MCV 88.7 (80.0-100.0) fL MCH 29.2 (25.0-35.0) pg MCHC 32.9 (31.0-37.0) g/dL RDW 13.4 (11.5-15.5) % Plt Count 193 (150-450) k/uL Neutrophils % 61 % Lymphocytes % 30 % Monocytes % 4 % Eosinophils % 2 % Basophils % 0 % Neutrophils # 5.7 (1.3-7.7) k/uL Lymphocytes # 2.8 (1.0-4.8) k/uL Monocytes # 0.4 (0-1.0) k/uL Eosinophils # 0.2 (0-0.7) k/uL Basophils # 0.0 (0-0.2) k/uL Sodium 135 L (137-145) mmol/L Potassium 4.3 (3.5-5.1) mmol/L Chloride 101 (98-107) mmol/L Carbon Dioxide 27 (22-30) mmol/L Anion Gap 7 mmol/L BUN 17 (7-17) mg/dL Creatinine 0.65 (0.52-1.04) mg/dL Est GFR (CKD-EPI)AfAm >90 (>60 ml/min/1.73 sqM) Est GFR (CKD-EPI)NonAf 86 (>60 ml/min/1.73 sqM) Glucose 261 H (74-99) mg/dL Calcium 9.2 (8.4-10.2) mg/dL Disposition Clinical Impression: Cellulitis of left lower extremity Disposition: HOME SELF-CARE Condition: Good Instructions (If sedation given, give patient instructions): Cellulitis (ED) Additional Instructions: Please take antibiotic as directed. Give this about 24 hours to kick in. If the redness is spreading at that time return to the emergency department. Follow-up with your doctor in one to 2 days for a recheck. Return for any other worsening or concerning symptoms as well. Prescriptions: Cephalexin [Keflex] 500 mg PO Q6HR 10 Days #40 cap Is patient prescribed a controlled substance at d/c from ED?: No Referrals: Moises Beckford MD [Primary Care Provider] - 1-2 days Time of Disposition: 13:42
[2019-05-17 12:36] LABS: African American GFR (CKD) >90 (>60 ml/min/1.73 sqM); Anion Gap 7 mmol/L; Basophils % (A) 0 %; Blood Urea Nitrogen 17 mg/dL (7-17); Calcium 9.2 mg/dL (8.4-10.2); Carbon Dioxide 27 mmol/L (22-30); Chloride 101 mmol/L (98-107); Eosinophils # (A) 0.2 k/uL (0-0.7); Eosinophils % (A) 2 %; Glucose 261 mg/dL (74-99); HCT 49.9 % (34.0-46.0); HGB 16.4 gm/dL (11.4-16.0); Lymphocytes # (A) 2.8 k/uL (1.0-4.8); Lymphocytes % (A) 30 %; MCH 29.2 pg (25.0-35.0); MCHC 32.9 g/dL (31.0-37.0); MCV 88.7 fL (80.0-100.0); Mean Platelet Volume 10.2; Monocytes # (A) 0.4 k/uL (0-1.0); Monocytes % (A) 4 %; Neutrophils # (A) 5.7 k/uL (1.3-7.7); Neutrophils % (A) 61 %; Non-African American GFR(CKD) 86 (>60 ml/min/1.73 sqM); Platelet Count 193 k/uL (150-450); Potassium 4.3 mmol/L (3.5-5.1); RBC 5.63 m/uL (3.80-5.40); RDW 13.4 % (11.5-15.5); Sodium 135 mmol/L (137-145); WBC 9.4 k/uL (3.8-10.6)
--- NOTE | 2019-05-17 13:30 | US ---
EXAMINATION TYPE: US venous doppler duplex LE LT DATE OF EXAM: 05/17/2019 12:54 PM COMPARISON: NONE CLINICAL HISTORY: swelling. Left leg swelling x couple days SIDE PERFORMED: Left TECHNIQUE: The lower extremity deep venous system is examined utilizing real time linear array sonog lang with graded compression, doppler sonography and color-flow sonography. VESSELS IMAGED: External Iliac Vein (EIV) Common Femoral Vein Deep Femoral Vein Greater Saphenous Vein * Femoral Vein Popliteal Vein Small Saphenous Vein * Proximal Calf Veins (* superficial vessels) Left Leg: Appears negative for DVT IMPRESSION: 1. Left lower extremity ultrasound negative for deep venous thrombosis.
[2019-05-17] MEDS ORDERED: cefTRIAXone IN SWFI 1,000 MG/10 ML SYRINGE IVP STA (13:35)
[2019-05-17 14:05] VITALS: BP 160/79; PULSE 70; RESP 18; TEMP 98
== END 2019-05-17 14:05 | disposition home or self-care (01) ==
LOC: EC 11:45
DX: E11.65 Type 2 diabetes mellitus with hyperglycemia (principal); L03.116 Cellulitis of left lower limb; E78.5 Hyperlipidemia, unspecified; I10 Essential (primary) hypertension; H40.9 Unspecified glaucoma; E07.9 Disorder of thyroid, unspecified; Z96.653 Presence of artificial knee joint, bilateral; Z79.890 Hormone replacement therapy; Z79.84 Long term (current) use of oral hypoglycemic drugs; Z79.899 Other long term (current) drug therapy
CPT/HCPCS: 36415; 80048; 85025; 87040; 93971; 99284; 96374; J0696

== ENCOUNTER 2019-05-23 13:35 | Emergency (ER) | payer MEDICARE ==
[2019-05-23 13:53] VITALS: RESP 18
--- NOTE | 2019-05-23 14:47 | ED ---
General Adult HPI - General Chief complaint: Extremity Problem,Nontraumatic Stated complaint: Left leg swelling-revisit Time Seen by Provider: 05/23/19 14:00 Source: patient, RN notes reviewed, old records reviewed Mode of arrival: ambulatory Limitations: no limitations - History of Present Illness Initial comments: 78-year-old female patient presents to the chief complaint of left leg swelling. Patient does report that she has a history of lymphedema in this leg for 12 years however the last 2 weeks she has been having worsening swelling which has not been controlled by her compressive socks. She denies any other complaints at this time. Systemic: Pt denies fatigue, fever/chills, rash. Pt denies weakness, night sweats, weight loss. Neuro: Pt denies headache, visual disturbances, syncope or pre-syncope. HEENT: Pt denies ocular discharge or irritation, otalgia, rhinorrhea, pharyngitis or notable lymphadenopathy. Cardiopulmonary: Pt denies chest pain, SOB, heart palpitations, dyspnea on exertion. Abdominal/GI: Pt denies abdominal pain, n/v/d. : Pt denies dysuria, burning w/ urination, frequency/urgency. Denies new onset urinary or bowel incontinence. MSK: Pt denies myalgia, loss of strength or function in extremities. Neuro: Pt denies new onset weakness, paresthesias. - Related Data Home Medications Medication Instructions Recorded Confirmed Acetaminophen [Tylenol Arthritis] 1,300 mg PO HS 07/28/16 07/06/18 Cholecalciferol (Vitamin D3) 2,000 unit PO DAILY 07/28/16 07/06/18 [Vitamin D3] Ezetimibe [Zetia] 10 mg PO HS 07/28/16 07/06/18 Latanoprost [Xalatan 0.005%] 1 drop BOTH EYES HS 07/28/16 07/06/18 Levothyroxine Sodium [Synthroid] 25 mcg PO QAM 07/28/16 07/06/18 amLODIPine BESYLATE/BENAZEPRIL 1 cap PO HS 07/28/16 07/06/18 [Lotrel 10-20 mg Capsule] Calcium Carbonate/Vitamin D3 1 cap PO BID 08/31/17 07/06/18 [Calcium 600-Vit D3 500 Softgel] Vitamin E Acetate [Vitamin E] 200 unit PO HS 08/31/17 07/06/18 sitaGLIPtin PHOSPHATE [Januvia] 100 mg PO DAILY 08/31/17 07/06/18 Previous Rx's Medication Instructions Recorded Cephalexin [Keflex] 500 mg PO Q6HR 10 Days #40 cap 05/17/19 Furosemide [Lasix] 20 mg PO DAILY 3 Days #3 tab 05/23/19 Allergies Allergy/AdvReac Type Severity Reaction Status Date / Time No Known Allergies Allergy Verified 05/23/19 13:53 Review of Systems ROS Statement: Those systems with pertinent positive or pertinent negative responses have been documented in the HPI. ROS Other: All systems not noted in ROS Statement are negative. Past Medical History Past Medical History: Diabetes Mellitus, Hyperlipidemia, Hypertension, Thyroid Disorder Additional Past Medical History / Comment(s): GLAUCOMA. OSTEOPENIA. LOWER LEG EDEMA, REDNESS. History of Any Multi-Drug Resistant Organisms: C-DIFF Date of last positivie culture/infection: 2013 MDRO Source:: stool Past Surgical History: Cholecystectomy, Ear Surgery, Hysterectomy, Orthopedic Surgery, Tonsillectomy Additional Past Surgical History / Comment(s): bilateral knee replacements Past Anesthesia/Blood Transfusion Reactions: Postoperative Nausea & Vomiting (PONV) Past Psychological History: No Psychological Hx Reported Smoking Status: Never smoker Past Alcohol Use History: None Reported Past Drug Use History: None Reported - Past Family History Mother Family Medical History: Diabetes Mellitus, Hypertension Father Family Medical History: Cancer, Diabetes Mellitus, Hypertension General Exam - General Exam Comments Initial Comments: Constitutional: NAD, AOX3, Pt has pleasant affect. HEENT: NC/AT, trachea midline, neck supple, no lymphadenopathy. Posterior pharynx non erythematous, without exudates. External ears appear normal, without discharge. Mucous membranes moist. Eyes PERRLA, EOM intact. There is no scleral icterus. No pallor noted. Cardiopulmonary: RRR, no murmurs, rubs or gallops, no JVD noted. Lungs CTAB in anterior and posterior fajardo. Abdominal exam: Abdomen soft and non-distended. Abdomen non-tender to palpation in all 4 quadrants. Bowel sounds active in LLQ. No hepatosplenomegaly. No ecchymosis Neuro: CN II-XII grossly intact. No nuchal rigidity. No raccon eyes, no koenig sign, no hemotympanum. No cervical spinal tenderness. MSK: +3 peripheral edema noted on LLE. No erythema or skin changes. Mild amount of tenderness in posterior calf. No erythema or skin changes. Posterior tibialis and radial pulse +2 bilaterally. Sensation intact in upper and lower extremities. Full active ROM in upper and lower extremities, 5/5 stregnth. Limitations: no limitations Course Vital Signs 05/23/19 13:51 Temperature 98.4 F Pulse Rate 84 Respiratory 18 Rate Blood Pressure 171/88 O2 Sat by Pulse 94 L Oximetry Medical Decision Making - Medical Decision Making 70-year-old female patient with the chief complaint unilateral leg swelling. Patient reports having ongoing for the last 12 years however has gotten worse in the last 2 weeks. Patient was here in emergency department approximately one week ago and had a negative ultrasound. Patient reports that he continues to have this leg swelling and that is uncomfortable. Compression socks are not helping. Patient also did stable, afebrile. Physical exam didn't display significant edema left lower extremity, no posterior calf tenderness, no skin changes, but investigations were obtained, kidney function is stable. Patient will be placed on short course of Lasix. Will follow up with primary care provider D her condition worsens. Case discussed with Dr. Dunaway. - Lab Data Result diagrams: 05/23/19 14:55 05/23/19 14:55 Lab Results 05/23/19 05/23/19 Range/Units 14:55 14:55 WBC 9.7 (3.8-10.6) k/uL RBC 5.47 H (3.80-5.40) m/uL Hgb 16.0 (11.4-16.0) gm/dL Hct 48.1 H (34.0-46.0) % MCV 88.0 (80.0-100.0) fL MCH 29.3 (25.0-35.0) pg MCHC 33.2 (31.0-37.0) g/dL RDW 13.4 (11.5-15.5) % Plt Count 182 (150-450) k/uL Neutrophils % 57 % Lymphocytes % 32 % Monocytes % 6 % Eosinophils % 2 % Basophils % 0 % Neutrophils # 5.5 (1.3-7.7) k/uL Lymphocytes # 3.1 (1.0-4.8) k/uL Monocytes # 0.6 (0-1.0) k/uL Eosinophils # 0.2 (0-0.7) k/uL Basophils # 0.0 (0-0.2) k/uL Sodium 135 L (137-145) mmol/L Potassium 4.0 (3.5-5.1) mmol/L Chloride 100 (98-107) mmol/L Carbon Dioxide 29 (22-30) mmol/L Anion Gap 6 mmol/L BUN 15 (7-17) mg/dL Creatinine 0.66 (0.52-1.04) mg/dL Est GFR (CKD-EPI)AfAm >90 (>60 ml/min/1.73 sqM) Est GFR (CKD-EPI)NonAf 85 (>60 ml/min/1.73 sqM) Glucose 149 H (74-99) mg/dL Calcium 9.2 (8.4-10.2) mg/dL Disposition Clinical Impression: Leg edema Disposition: HOME SELF-CARE Condition: Stable Instructions (If sedation given, give patient instructions): Leg Edema (ED) Additional Instructions: Take medications directed. Follow-up with primary care provider tomorrow. Return to ER if condition worsens. Prescriptions: Furosemide [Lasix] 20 mg PO DAILY 3 Days #3 tab Is patient prescribed a controlled substance at d/c from ED?: No Referrals: Moises Beckford MD [Primary Care Provider] - 1-2 days
[2019-05-23 15:15] LABS: Basophils % (A) 0 %; Eosinophils # (A) 0.2 k/uL (0-0.7); Eosinophils % (A) 2 %; HCT 48.1 % (34.0-46.0); Lymphocytes # (A) 3.1 k/uL (1.0-4.8); Lymphocytes % (A) 32 %; MCH 29.3 pg (25.0-35.0); MCHC 33.2 g/dL (31.0-37.0); Mean Platelet Volume 9.8; Monocytes # (A) 0.6 k/uL (0-1.0); Monocytes % (A) 6 %; Neutrophils # (A) 5.5 k/uL (1.3-7.7); Neutrophils % (A) 57 %; Platelet Count 182 k/uL (150-450); RBC 5.47 m/uL (3.80-5.40); RDW 13.4 % (11.5-15.5); WBC 9.7 k/uL (3.8-10.6)
[2019-05-23 15:23] LABS: African American GFR (CKD) >90 (>60 ml/min/1.73 sqM); Anion Gap 6 mmol/L; Blood Urea Nitrogen 15 mg/dL (7-17); Calcium 9.2 mg/dL (8.4-10.2); Carbon Dioxide 29 mmol/L (22-30); Chloride 100 mmol/L (98-107); Glucose 149 mg/dL (74-99); Non-African American GFR(CKD) 85 (>60 ml/min/1.73 sqM); Sodium 135 mmol/L (137-145)
--- NOTE | 2019-05-23 15:51 | US ---
EXAMINATION TYPE: US venous doppler duplex LE LT DATE OF EXAM: 05/23/2019 2:37 PM COMPARISON: Left lower extremity venous ultrasound 6 days ago. CLINICAL HISTORY: unilateral leg swelling . edema SIDE PERFORMED: Left TECHNIQUE: The lower extremity deep venous system is examined utilizing real time linear array sonog lang with graded compression, doppler sonography and color-flow sonography. VESSELS IMAGED: External Iliac Vein (EIV) Common Femoral Vein Deep Femoral Vein Greater Saphenous Vein * Femoral Vein Popliteal Vein Small Saphenous Vein * Left Leg: Negative for DVT Grayscale, color doppler, spectral doppler imaging performed of the deep veins of the left lower extr emity. There is normal flow, compressibility, vascular waveforms. IMPRESSION: No ultrasound evidence for acute DVT in the left lower extremity. No significant change from recent study.
[2019-05-23] MEDS ORDERED: FUROSEMIDE 40 MG TAB PO STA (15:59)
[2019-05-23 16:12] VITALS: BP 154/76; PULSE 80; TEMP 98.1
== END 2019-05-23 16:13 | disposition home or self-care (01) ==
LOC: EC 13:35
DX: R60.0 Localized edema (principal); I10 Essential (primary) hypertension; E78.5 Hyperlipidemia, unspecified; E11.39 Type 2 diabetes mellitus with other diabetic ophthalmic complication; H42 Glaucoma in diseases classified elsewhere; Z79.899 Other long term (current) drug therapy; Z79.84 Long term (current) use of oral hypoglycemic drugs; Z96.653 Presence of artificial knee joint, bilateral
CPT/HCPCS: 36415; 80048; 85025; 99284

== ENCOUNTER → 2019-10-18 | Outpatient (CLI) | payer MEDICARE ==
--- NOTE | 2019-10-23 12:37 | HM ---
This is a report on the 24-hour monitor. Baseline rhythm is sinus. Average heart rate is 80. Minimal is a 63 and maximum is 127. Occasional APCs and occasional PVCs and noted. Patient complained of one episode of being out of breath when walking to the truck. This correlated with a sinus tachycardia and PVC. Final impression #1. Sinus rhythm with first-degree heart block and bundle branch block pattern. #2. Occasional APCs. #3 occasional PVCs #4 patient complained of being short of breath with weak correlation with Cardec arrhythmias. MTDD
== END | disposition home or self-care (01) ==
LOC: RADECHMAIN 11:44
PROVIDERS: ATTEND Family Medicine
DX: I45.4 Nonspecific intraventricular block (principal); R06.02 Shortness of breath
CPT/HCPCS: 93225; 93226

== ENCOUNTER 2019-12-20 14:50 | Inpatient (IN) | payer MEDICARE ==
--- NOTE | 2019-12-20 15:26 | ED ---
Chest Pain HPI - General Chief Complaint: Chest Pain Stated Complaint: Chest Pain Source: patient Mode of arrival: wheelchair Limitations: no limitations - History of Present Illness Initial Comments: Vision is a 79-year-old female presents with hypertension, hyperlipidemia, thyroid disorder who presents to the emergency department with reported respiratory insufficiency. She states for the past 2 weeks she has been extremely short of breath especially with ambulation. Also reports to palpitations. Denies cough, fevers or chills. No hemoptysis. No history of previous lung disease. Denies history of cardiac disease. She has had a history of hypertension and takes amlodipine/benzapril. States she has been on this dose for a period of time. Denies taking any excess doses. She denies any nausea or vomiting. No chest pain. She went to see Dr. Beckford today because of her symptoms and was found to be in heart block. She was sent into the emergency room for further evaluation - Related Data Home Medications Medication Instructions Recorded Confirmed Acetaminophen [Tylenol Arthritis] 1,300 mg PO HS 07/28/16 07/06/18 Cholecalciferol (Vitamin D3) 2,000 unit PO DAILY 07/28/16 07/06/18 [Vitamin D3] Ezetimibe [Zetia] 10 mg PO HS 07/28/16 07/06/18 Latanoprost [Xalatan 0.005%] 1 drop BOTH EYES HS 07/28/16 07/06/18 Levothyroxine Sodium [Synthroid] 25 mcg PO QAM 07/28/16 07/06/18 amLODIPine BESYLATE/BENAZEPRIL 1 cap PO HS 07/28/16 07/06/18 [Lotrel 10-20 mg Capsule] Calcium Carbonate/Vitamin D3 1 cap PO BID 08/31/17 07/06/18 [Calcium 600-Vit D3 500 Softgel] Vitamin E Acetate [Vitamin E] 200 unit PO HS 08/31/17 07/06/18 sitaGLIPtin PHOSPHATE [Januvia] 100 mg PO DAILY 08/31/17 07/06/18 Previous Rx's Medication Instructions Recorded Cephalexin [Keflex] 500 mg PO Q6HR 10 Days #40 cap 05/17/19 Furosemide [Lasix] 20 mg PO DAILY 3 Days #3 tab 05/23/19 Allergies Allergy/AdvReac Type Severity Reaction Status Date / Time No Known Allergies Allergy Verified 12/20/19 14:56 Review of Systems ROS Statement: Those systems with pertinent positive or pertinent negative responses have been documented in the HPI. ROS Other: All systems not noted in ROS Statement are negative. EKG Findings - EKG Comments: EKG Findings:: EKG demonstrates a bradycardic rhythm with a rate of 36. QRS 114. QTC of 504. There is complete dissociation between the P waves and QRS. Third degree heart block. No acute ST segment elevation Past Medical History Past Medical History: Diabetes Mellitus, Hyperlipidemia, Hypertension, Thyroid Disorder Additional Past Medical History / Comment(s): GLAUCOMA. OSTEOPENIA. LOWER LEG EDEMA, REDNESS. History of Any Multi-Drug Resistant Organisms: C-DIFF Date of last positivie culture/infection: 2013 MDRO Source:: stool Past Surgical History: Cholecystectomy, Ear Surgery, Hysterectomy, Orthopedic Surgery, Tonsillectomy Additional Past Surgical History / Comment(s): bilateral knee replacements Past Anesthesia/Blood Transfusion Reactions: Postoperative Nausea & Vomiting (PONV) Past Psychological History: No Psychological Hx Reported Smoking Status: Never smoker Past Alcohol Use History: None Reported Past Drug Use History: None Reported - Past Family History Mother Family Medical History: Diabetes Mellitus, Hypertension Father Family Medical History: Cancer, Diabetes Mellitus, Hypertension General Exam Limitations: no limitations Course Vital Signs 12/20/19 12/20/19 12/20/19 14:52 15:13 15:26 Temperature 97.9 F Pulse Rate 36 L 34 L Pulse Rate [ 37 L Sea Foam Kiss Maker ] Respiratory 26 H 18 18 Rate Blood Pressure 173/54 184/91 O2 Sat by Pulse 93 L Oximetry - Reevaluation(s) Reevaluation #1: Deputy Commonwealth'S Attorney paged 12/20/19 15:25 Reevaluation #2: 12/20/19 15:[address] Cardenas Reevaluation #3: 12/20/19 16:[address] Cardenas. Will activate supervisor dental laboratory for pacer Reevaluation #4: 12/20/19 16:32 king accepts patient into ICU Chest Pain MDM - MDM Upon arrival the patient is promptly placed in a trauma bay 3. Thorough history and physical exam was performed. Peripheral IV is established. Patient is placed on cardiac pacing pads. 12-lead EKG was performed which demonstrates a third degree heart block. Patient does have stable, hypertensive blood pressures at this time. She is mentating appropriately. Laboratory studies were conducted. I did call discuss case with Dr. Cardenas. He is aware of the patient's presence in the emergency department and will like to be made aware of the patient's laboratory study results. Chest x-rays performed. Labs are reviewed and demonstrate a white count of 14. Hemoccult and 16.2. Creatinine 1.4. BNP 1790. TSH normal at 1.7. Chest x-ray is reviewed by myself and demonstrates cardiomegaly. Elevated right hemidiaphragm. The results are discussed with the patient. She is kept nothing by mouth in the emergency department. Did discuss needed for temporary and possible permanent place maker. Patient understood this. Called Dr. Richards back with the results. He states that he would like to take the patient to the Lab at this time. Member Service Representative was activated. Patient remained in hemodynamically stable condition awaiting transport Disposition Clinical Impression: Third degree heart block Disposition: ADMITTED IP TO THIS [facility] Condition: Serious Is patient prescribed a controlled substance at d/c from ED?: No Referrals: Moises Beckford MD [Primary Care Provider] - 1-2 days Decision to Admit Reason: Admit from EC Decision Date: 12/20/19 Decision Time: 16:12
[2019-12-20 15:35] LABS: Basophils # (A) 0.1 k/uL (0-0.2); Basophils % (A) 1 %; Eosinophils # (A) 0.2 k/uL (0-0.7); Eosinophils % (A) 1 %; HCT 51.6 % (34.0-46.0); HGB 16.2 gm/dL (11.4-16.0); Lymphocytes # (A) 3.4 k/uL (1.0-4.8); Lymphocytes % (A) 24 %; MCH 28.9 pg (25.0-35.0); MCHC 31.4 g/dL (31.0-37.0); MCV 92.2 fL (80.0-100.0); Mean Platelet Volume 12.3; Monocytes # (A) 0.7 k/uL (0-1.0); Monocytes % (A) 5 %; Neutrophils # (A) 9.3 k/uL (1.3-7.7); Neutrophils % (A) 66 %; RBC 5.59 m/uL (3.80-5.40); RDW 14.1 % (11.5-15.5)
[2019-12-20 15:45] LABS: INR 0.9 (<1.2); Partial Thromboplastin Time 23.1 sec (22.0-30.0); Prothrombin Time 9.9 sec (9.0-12.0)
[2019-12-20 15:52] LABS: Albumin 4.1 g/dL (3.5-5.0); Calcium 9.5 mg/dL (8.4-10.2); Magnesium 2.1 mg/dL (1.6-2.3); Potassium 5.1 mmol/L (3.5-5.1); Total Bilirubin 0.7 mg/dL (0.2-1.3)
[2019-12-20 16:09] LABS: Large Platelets Present; Platelet Count 186 k/uL (150-450)
[2019-12-20] MEDS ORDERED: NALOXONE 0.4 MG/ML 1 ML VIAL IV PRN (16:17)
--- NOTE | 2019-12-20 16:36 | XR ---
EXAMINATION TYPE: XR chest 2V DATE OF EXAM: 12/20/2019 COMPARISON: Prior chest x-ray is unavailable for comparison HISTORY: Dysrhythmia, shortness of breath and chest pain TECHNIQUE: Frontal and lateral views of the chest are obtained. FINDINGS: Right hemidiaphragm is elevated. Heart is enlarged. Patchy basilar density is noted. There is no pneumothorax or pleural effusion evident. There are overlying cardiac leads and the patient is rotated. Surgical clips present in the right upper quadrant. IMPRESSION: Cardiomegaly, elevated right hemidiaphragm and probable basilar atelectasis.
[2019-12-20] MEDS ORDERED: SODIUM CHLORIDE 0.9% 500 ML 500 ML IV ONE (16:53)
[2019-12-20] MEDS ORDERED: LIDOCAINE 1% INJ 10MG/ML (20 ML MDV) SQ ONE (17:09)
[2019-12-20] MEDS ORDERED: MIDAZOLAM 2 MG/2 ML VIAL IV ONE (17:15)
[2019-12-20] MEDS ORDERED: fentaNYL (PF) 50 MCG/ML 2 ML AMP IV ONE (17:15)
[2019-12-20] MEDS ORDERED: fentaNYL (PF) 50 MCG/ML 2 ML AMP ONE (17:19)
--- NOTE | 2019-12-20 17:58 | CONS ---
CONSULTATION CHIEF COMPLAINT: Complete heart block. This is a 79-year-old lady with history of hypertension who presented to Dr. Moises Beckford's office with symptoms of fatigue, shortness of breath and dizziness for the last 2 weeks. Her heart rate was slow. She had an EKG that showed complete heart block, due to which she was referred to the emergency room. She denies syncope. There is no history of chest pain, leg edema, shortness of breath, PND or orthopnea. There is no prior history of coronary artery disease or congestive heart failure. At the time of my evaluation, patient appears comfortable at rest. Her blood pressure is elevated. Her labs show that the potassium is 5.1, but rest of her lab workup is fine. She has hypothyroidism, but her thyroid functions are normal. PAST MEDICAL HISTORY: Her past medical history is significant for hypertension and hypothyroidism. MEDICATIONS: Medications are as charted. She is not on any AV liam blockers. ALLERGIES: There are NO KNOWN DRUG ALLERGIES. FAMILY HISTORY: Negative for premature coronary artery disease. SOCIAL HISTORY: Negative for current smoking, EtOH abuse or drug abuse. REVIEW OF SYSTEMS: HEENT is unremarkable. CARDIAC: As described above. RESPIRATORY: As described above. GI: Negative. GENITOURINARY: Negative. ALLERGY: Negative. IMMUNOLOGY: Negative. SKIN: Negative. MUSCULOSKELETAL: Negative. ENDOCRINE: Negative. DERMATOLOGY: Negative. CONSTITUTIONAL: Negative. ONCOLOGICAL: Negative. PHYSICAL EXAMINATION: Comfortable at rest. Heart rate is 74 beats per minute, oxygen saturation is 97%, respiratory rate is 18. There is no jugular venous distention. Carotid upstroke is normal. There is no bruit. Chest exam reveals good air entry bilaterally. Heart exam reveals first and second heart sounds. No gallop. Abdomen is soft. Examination of extremities did not reveal any edema. Peripheral pulses are felt. ASSESSMENT: 1. Complete heart block. 2. History of hypertension. PLAN: Patient will undergo temporary transvenous pacemaker, and I believe she will need a permanent pacemaker. I will obtain a 2D echo in the morning to evaluate her LV function. MMODL / IJN: [id number] /
--- NOTE | 2019-12-20 18:04 | PCN ---
PROCEDURE NOTE PROCEDURE: Temporary transvenous pacemaker placement. INDICATION: Complete heart block. PROCEDURE DESCRIPTION: After obtaining informed consent, a temporary transvenous pacemaker was performed via the right femoral vein. Patient received moderate conscious sedation. Total sedation time was 15 minutes. The venous access was obtained using modified Seldinger technique, and the temporary transvenous pacemaker was floated under fluoroscopic guidance into the right ventricle. We obtained adequate pacing and sensing thresholds and the patient was set at 70 beats per minute with 4 and will be admitted to ICU. Will monitor her overnight, and if she continues to be in complete heart block she will need a pacemaker, which may be done over the weekend or on Monday. I discussed these issues with the patient. She understands and is in agreement with the plans. HAYDEN / HANNAH: [id number] /
[2019-12-20 19:30] LABS: Glucose,Whole Blood 197 mg/dL (75-99)
[2019-12-20] MEDS: amLODIPine 10 MG TAB PO SCH (19:35)
[2019-12-20] MEDS: INSULIN ASPART (NovoLOG) 100 UNIT/ML VIAL SQ SCH ×2 (19:38→19:39)
[2019-12-20] MEDS ORDERED: hydrALAZINE HCL 50 MG TAB PO SCH (20:00)
[2019-12-20] MEDS ORDERED: ALPRAZolam 0.25 MG TAB PO PRN (21:21)
[2019-12-20] MEDS ORDERED: TEMAZEPAM 15 MG CAP PO PRN (21:21)
[2019-12-20] MEDS: hydrALAZINE HCL 50 MG TAB PO SCH (21:25)
[2019-12-20] MEDS: CHOLECALCIFEROL 1,000 UNIT TAB PO SCH (21:25)
[2019-12-20] MEDS: ACETAMINOPHEN TAB 325 MG TAB PO SCH (21:25)
[2019-12-20] MEDS: ATORVASTATIN 20 MG TAB PO SCH (21:25)
[2019-12-20] MEDS: LATANOPROST 0.005% OPHTH DROPS 2.5 ML BTL BOTH EYES SCH (22:14)
--- NOTE | 2019-12-20 22:43 | HP ---
HISTORY AND PHYSICAL DATE OF SERVICE: 12/20/2019 CHIEF COMPLAINTS: Shortness of breath, weakness and palpitations. HISTORY OF PRESENT ILLNESS: This 79-year-old woman with a past medical history of multiple medical problems, including diabetes mellitus, hypertension, hyperlipidemia, history of hypothyroidism, history of osteopenia, history of lower leg edema, history of C difficile, history of cholecystectomy, being followed by Dr. Moises Beckford in the outpatient setting, was not feeling well over the past several weeks. The patient is extremely weak, with shortness of breath, and the patient also had some palpitations. Patient came to [facility] and was admitted for further evaluation and treatment. There is no history of any fever, rigor or chills. No history of any chest pain, headache, loss of consciousness, seizures at this time. The heart rate was found to be in the 30s and EKG showed complete heart block. Cardiology saw the patient. A temporary venous pacemaker was inserted. The patient is pacing around 69 per minute and patient is being monitored in the ICU at this time. The chest x-ray, which was reviewed personally by me, showed some cardiomegaly. The admission EKG showed complete heart block with complete AV dissociation. PAST MEDICAL HISTORY: History of diabetes mellitus, hypertension, hyperlipidemia, hypothyroidism, history of glaucoma, osteopenia. HOME MEDICATIONS: Tionesta-3 fatty acids, vitamin C, Januvia, Crestor, Synthroid 25 mcg each morning, Xalatan, vitamin D3, Lotrel, Tylenol Arthritis. Doses are reviewed. ALLERGIES: NONE. FAMILY HISTORY: History of diabetes and hypertension in the family. SOCIAL HISTORY: No history of smoking. No history of alcohol intake. REVIEW OF SYSTEMS: ENT: No diminished hearing. No diminished vision. CARDIOVASCULAR SYSTEM: As mentioned earlier. RESPIRATORY SYSTEM: As mentioned earlier. GI: No nausea, vomiting. : No dysuria or retention. NERVOUS SYSTEM: No numbness, weakness. ALLERGY/IMMUNOLOGY: No asthma, hayfever. MUSCULOSKELETAL: As mentioned earlier. HEMATOLOGY/ONCOLOGY: No history of anemia. ENDOCRINE: Diabetes mellitus. CONSTITUTIONAL: As mentioned earlier. NEUROLOGY: As mentioned earlier. PSYCHIATRY: As mentioned earlier. PHYSICAL EXAMINATION: Patient alert and oriented x3. Pulse is improved now, 70, blood pressure 129/102, respiration 22, temperature 97.7, pulse ox 93% on 2 L. HEENT: Conjunctivae normal. NECK: No jugular venous distention. CARDIOVASCULAR SYSTEM: S1, S2 muffled. RESPIRATORY SYSTEM: Breath sounds diminished at the bases. A few scattered rhonchi. No crackles. ABDOMEN: Soft, non-tender. No mass palpable. LEGS: Lymphedema. NERVOUS SYSTEM: Higher functions as mentioned earlier. Moves all 4 limbs. No focal motor or sensory deficit. LYMPHATICS: No lymph node palpable in neck, axillae or groin. SKIN: No ulcer, rash, bleeding. JOINTS: No active deforming arthropathy. LABS: WBC 14, hemoglobin 16.2. Creatinine is 1.43. Glucose 128. ASSESSMENT: 1. Complete heart block with complete AV dissociation, status post temporary transvenous pacemaker. 2. Increased white count. 3. Mild polycythemia. 4. Probable basilar atelectasis on the right side. 5. Increased creatinine with possibly mild acute with acute tubular necrosis. 6. Diabetes mellitus, type 2. 7. Hypothyroidism. 8. Elevated AST and ALT, mild. 9. Hypertension. 10.Hyperlipidemia. 11.History of glaucoma. 12.History of osteopenia. 13.History of Clostridium difficile. 14.History of cholecystectomy. 15.History of degenerative joint disease. 16.History of bilateral knee joint replacement. 17.Obesity with body mass index of 44.5. 18.FULL CODE. RECOMMENDATIONS AND DISCUSSION: In this 79-year-old woman who presented with multiple medical issues, we will monitor the patient closely, continue the current medications, continue symptomatic treatment, closely follow with Cardiology. Temporary venous pacemaker was inserted, as mentioned earlier. We will continue to monitor the cardiac rhythm. Abnormal labs are noted. I would recommend UA with micro. TSH is within normal limits. Chest x-ray which was done, which I reviewed personally, showed some atelectasis in the right hemidiaphragm. We will continue to monitor. I would also recommend a course of bronchodilators. See orders for further details. Further recommendations to follow. A copy of this dictation is being forwarded to Dr. Moises Beckford, who is the primary physician. MMEDDIE / HANNAH: [id number] / MTDD
[2019-12-20 23:44] LABS: Appearance,Urine Cloudy (Clear); Bacteria,Urine Rare /hpf; Bilirubin,Urine Negative (Negative); Blood,Urine Small (Negative); Color,Urine Yellow; Glucose,Urine (UA) Negative (Negative); Granular Casts,Urine 160 /lpf (0); Hyaline Casts,Urine 1 /lpf (0-2); Ketones,Urine Negative (Negative); Leukocyte Esterase,Urine Moderate (Negative); Mucus,Urine Rare /hpf; Nitrite,Urine Negative (Negative); Protein,Urine 1+ (Negative); RBC,Urine 53 /hpf (0-5); Specific Gravity,Urine 1.013 (1.001-1.035); Squamous Epithelial Cell,Urine 2 /hpf (0-4); Urobilinogen,Urine <2.0 mg/dL (<2.0); WBC,Urine 25 /hpf (0-5)
[2019-12-21 04:52] LABS: C Reactive Protein 12.9 mg/L (<10.0); Calcium 8.6 mg/dL (8.4-10.2); Magnesium 2.1 mg/dL (1.6-2.3); Phosphorus 4.8 mg/dL (2.5-4.5); Potassium 4.5 mmol/L (3.5-5.1)
[2019-12-21 04:53] LABS: Basophils % (A) 0 %; Eosinophils # (A) 0.3 k/uL (0-0.7); Eosinophils % (A) 3 %; HCT 46.7 % (34.0-46.0); HGB 14.5 gm/dL (11.4-16.0); Lymphocytes # (A) 2.4 k/uL (1.0-4.8); Lymphocytes % (A) 25 %; MCH 29.3 pg (25.0-35.0); MCHC 31.1 g/dL (31.0-37.0); MCV 94.2 fL (80.0-100.0); Monocytes # (A) 0.6 k/uL (0-1.0); Monocytes % (A) 6 %; Neutrophils # (A) 6.3 k/uL (1.3-7.7); Neutrophils % (A) 65 %; Platelet Count 133 k/uL (150-450); RBC 4.96 m/uL (3.80-5.40); RDW 14.4 % (11.5-15.5); WBC 9.7 k/uL (3.8-10.6)
[2019-12-21 05:56] LABS: Erythrocyte Sedimentation Rate 6 mm/hr (0-20)
[2019-12-21 06:20] LABS: Glucose,Whole Blood 161 mg/dL (75-99)
[2019-12-21] MEDS: LEVOTHYROXINE 25 MCG TAB PO SCH (06:20)
[2019-12-21] MEDS: INSULIN ASPART (NovoLOG) 100 UNIT/ML VIAL SQ SCH ×4 (06:21→21:33)
[2019-12-21] MEDS ORDERED: NON FORMULARY DRUG (Omega-3 Fatty Acids/Fish Oil [Fish Oil 1,000 Mg Softgel] 1 EACH Capsul PO SCH (09:00)
[2019-12-21] MEDS: ASCORBIC ACID 500 MG TAB PO SCH (10:21)
[2019-12-21] MEDS: HEPARIN SODIUM,PORCINE 5,000 UNIT/ML 1 ML VIAL SQ SCH ×2 (10:21→20:15)
[2019-12-21] MEDS: LINAGLIPTIN 5 MG TABLET PO SCH (10:22)
[2019-12-21] MEDS ORDERED: SODIUM CHLORIDE 0.9% 1,000 ML IV SCH ×2 (10:45)
[2019-12-21] MEDS: amLODIPine 10 MG TAB PO SCH (10:52)
[2019-12-21] MEDS: hydrALAZINE HCL 50 MG TAB PO SCH ×4 (10:52→20:15)
[2019-12-21] MEDS: SODIUM CHLORIDE 0.9% 1,000 ML IV SCH (10:54)
[2019-12-21 11:16] LABS: Glucose,Whole Blood 161 mg/dL (75-99)
[2019-12-21] MEDS ORDERED: ceFAZolin 1,000 MG in SODIUM CHLORIDE 0.9% IRRIGATIO 250 ML IRRIGATION ONE (11:17)
[2019-12-21] MEDS ORDERED: IV FLUID CONTINUATION 1,000 ML IV ONE (11:25)
[2019-12-21] MEDS ORDERED: IOPAMIDOL-250 50ML BTL IV ONE (11:52)
[2019-12-21] MEDS ORDERED: LIDOCAINE 1% INJ 10MG/ML (20 ML MDV) ONE (12:03)
--- NOTE | 2019-12-21 12:03 | P.CNPUL ---
History of Present Illness Consult date: 12/21/19 Requesting physician: Moises Beckford Reason for consult: other (High degree AV block.) Chief complaint: Weakness and shortness of breath. History of present illness: This is a 79-year-old female with history of multiple medical problems including hypertension, diabetes, hypothyroidism, dyslipidemia, patient saw her primary care physician yesterday, and she was complaining of 2 weeks history of weakness and shortness of breath. EKG in the office showed that the patient was having a high degree AV block. Hence the patient was sent to the ER, and sure enough she was found to have third-degree AV block. Patient was seen by cardiology on consultation, and she underwent temporary pacemaker implantation. Patient was admitted to the ICU, and I was asked to see her on consultation. I saw today, patient is doing great, asymptomatic, denies any weakness denies any shortness of breath, denies any dizziness, denies any palpitations. Patient is fully paced, and she has a temporary pacemaker for now, being considered for possible permanent pacemaker implantation in the next 24-48 hours. Again patient has no active pulmonary symptoms at present, denies any constitutional symptoms, and s he is resting in bed Review of Systems Constitutional: Patient presented with 2 weeks history of weakness and fatigue no weight loss no fever no chills. HEENT: Negative. Pulmonary: Dyspnea on exertion resolved Cardiac: As noted in HPI. GI: Negative. Genitourinary: Negative. Musko skeletal: Negative. Skin: Negative. Endocrine: Negative. Hematologic: Negative. Neurologic: Negative Past Medical History Past Medical History: Diabetes Mellitus, Hyperlipidemia, Hypertension, Thyroid Disorder Additional Past Medical History / Comment(s): GLAUCOMA. OSTEOPENIA. LOWER LEG EDEMA, REDNESS. History of Any Multi-Drug Resistant Organisms: C-DIFF Date of last positivie culture/infection: 2013 MDRO Source:: stool Past Surgical History: Cholecystectomy, Ear Surgery, Hysterectomy, Orthopedic Surgery, Tonsillectomy Additional Past Surgical History / Comment(s): bilateral knee replacements Past Anesthesia/Blood Transfusion Reactions: Postoperative Nausea & Vomiting (PONV) Past Psychological History: No Psychological Hx Reported Smoking Status: Never smoker Past Alcohol Use History: None Reported Past Drug Use History: None Reported - Past Family History Mother Family Medical History: Diabetes Mellitus, Hypertension Father Family Medical History: Cancer, Diabetes Mellitus, Hypertension Medications and Allergies Home Medications Medication Instructions Recorded Confirmed Type Acetaminophen [Tylenol Arthritis] 1,300 mg PO HS 07/28/16 12/20/19 History Cholecalciferol (Vitamin D3) 2,000 unit PO HS 07/28/16 12/20/19 History [Vitamin D3] Latanoprost [Xalatan 0.005%] 1 drop BOTH EYES HS 07/28/16 12/20/19 History Levothyroxine Sodium [Synthroid] 25 mcg PO QAM 07/28/16 12/20/19 History amLODIPine BESYLATE/BENAZEPRIL 1 cap PO HS 07/28/16 12/20/19 History [Lotrel 10-20 mg Capsule] sitaGLIPtin PHOSPHATE [Januvia] 100 mg PO DAILY 08/31/17 12/20/19 History Ascorbic Acid [Vitamin C] 1,000 mg PO DAILY 12/20/19 12/20/19 History [place]-3 Fatty Acids/Fish Oil [Fish 1 cap PO DAILY 12/20/19 12/20/19 History Oil 1,000 mg Softgel] Rosuvastatin [Crestor] 10 mg PO HS 12/20/19 12/20/19 History Allergies Allergy/AdvReac Type Severity Reaction Status Date / Time No Known Allergies Allergy Verified 12/20/19 16:49 Physical Exam Vitals: Vital Signs Temp Pulse Pulse Pulse Resp BP BP 12/21/19 11:00 69 21 157/70 12/21/19 10:00 70 23 154/69 12/21/19 09:00 70 17 139/64 12/21/19 08:00 98.2 F 69 20 144/67 12/21/19 07:00 70 16 150/67 12/21/19 06:00 70 21 152/65 12/21/19 05:00 70 22 119/89 12/21/19 04:00 98.3 F 70 17 150/77 12/21/19 03:00 70 13 118/63 12/21/19 02:00 69 20 110/55 12/21/19 01:00 70 19 115/57 12/21/19 00:15 70 15 12/21/19 00:00 98.2 F 70 16 115/57 12/20/19 23:00 70 19 157/61 12/20/19 22:00 69 20 181/68 12/20/19 21:00 70 24 129/102 12/20/19 20:04 97.7 F 70 22 129/102 12/20/19 19:50 69 18 171/75 12/20/19 19:35 64 18 187/84 12/20/19 19:18 69 18 197/82 12/20/19 18:51 69 18 179/79 12/20/19 18:34 69 18 191/84 12/20/19 18:17 69 18 158/75 12/20/19 18:02 69 18 190/89 12/20/19 17:08 33 L 18 174/89 12/20/19 16:11 34 L 18 188/97 12/20/19 15:26 34 L 18 184/91 12/20/19 15:13 37 L 18 12/20/19 14:52 97.9 F 36 L 26 H 173/54 Pulse Ox 12/21/19 11:00 94 L 12/21/19 10:00 92 L 12/21/19 09:00 93 L 12/21/19 08:00 93 L 12/21/19 07:00 93 L 12/21/19 06:00 92 L 12/21/19 05:00 92 L 12/21/19 04:00 92 L 12/21/19 03:00 92 L 12/21/19 02:00 92 L 12/21/19 01:00 93 L 12/21/19 00:15 93 L 12/21/19 00:00 92 L 12/20/19 23:00 91 L 12/20/19 22:00 90 L 12/20/19 21:00 91 L 12/20/19 20:04 93 L 12/20/19 19:50 93 L 12/20/19 19:35 94 L 12/20/19 19:18 93 L 12/20/19 18:51 88 L 12/20/19 18:34 92 L 12/20/19 18:17 91 L 12/20/19 18:02 97 12/20/19 17:08 98 12/20/19 16:11 98 12/20/19 15:26 12/20/19 15:13 12/20/19 14:52 93 L Intake and Output 12/20/19 12/21/19 12/21/19 22:59 06:59 14:59 Intake Total 110 300 110 Output Total 940 415 125 Balance -830 -115 -15 Intake: IV 110 180 110 KVO 60 180 110 Oral 120 Output: Urine 940 415 125 Other: Voiding Method Indwelling Catheter Indwelling Catheter # Voids 1 0 Weight 105.7 kg 105.9 kg Physical Exam: Revealed 79-year-old female in no form of respiratory distress, asymptomatic, comfortable in bed, on room air. HEENT:[Neck is supple.] [No neck masses.] [No thyromegaly.] [No JVD.] Chest: [Clear throughout, no crackles, no rhonchi, no wheezes.] Cardiac Exam: [Normal S1 and S2, no S3 gallop, no murmur.] Abdomen: [Soft, nontender, no megaly, no rebound, no guarding, normal bowel omar nds.] Extremities: [No clubbing, no edema, no cyanosis.] Neurological Exam: [No focal neurologic deficit.] Alert and oriented 3. Psychiatric: Normal mood affect and normal mental status examination. Skin: No rashes. Musko skeletal: No deformities noted limitation range of motion. Lymphatics: No evidence of axillary or supraclavicular lymphadenopathy. Results - Laboratory Findings CBC and BMP: 12/21/19 04:26 12/21/19 04:26 PT/INR, D-dimer PT 9.9 sec (9.0-12.0) 12/20/19 15:21 INR 0.9 (<1.2) 12/20/19 15:21 Abnormal lab findings: Abnormal Labs 12/20/19 12/20/19 12/20/19 15:21 15:21 19:28 WBC 14.0 H RBC 5.59 H Hgb 16.2 H Hct 51.6 H Plt Count Neutrophils # 9.3 H Chloride Carbon Dioxide 21 L BUN 43 H Creatinine 1.43 H Glucose 292 H POC Glucose (mg/dL) 197 H Phosphorus AST 41 H ALT 43 H C-Reactive Protein Urine Appearance Urine Protein Urine Blood Ur Leukocyte Esterase Urine RBC Urine WBC Urine WBC Clumps Urine Bacteria Urine Mucus 12/20/19 12/21/19 12/21/19 23:00 04:26 04:26 WBC RBC Hgb Hct 46.7 H Plt Count 133 L Neutrophils # Chloride 112 H Carbon Dioxide BUN 35 H Creatinine Glucose 177 H POC Glucose (mg/dL) Phosphorus 4.8 H AST ALT C-Reactive Protein 12.9 H Urine Appearance Cloudy H Urine Protein 1+ H Urine Blood Small H Ur Leukocyte Esterase Moderate H Urine RBC 53 H Urine WBC 25 H Urine WBC Clumps Few H Urine Bacteria Rare H Urine Mucus Rare H 12/21/19 12/21/19 06:18 11:15 WBC RBC Hgb Hct Plt Count Neutrophils # Chloride Carbon Dioxide BUN Creatinine Glucose POC Glucose (mg/dL) 161 H 161 H Phosphorus AST ALT C-Reactive Protein Urine Appearance Urine Protein Urine Blood Ur Leukocyte Esterase Urine RBC Urine WBC Urine WBC Clumps Urine Bacteria Urine Mucus - Diagnostic Findings Chest x-ray: image reviewed (Chest x-ray showed cardiomegaly, elevated right hemidiaphragm and basilar atelectasis) Assessment and Plan Assessment: Impression: 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 Right basilar atelectasis Type 2 diabetes Hypertension History of hypothyroidism Dyslipidemia Degenerative joint disease and previous bilateral knee joint replacement. History of osteopenia. Recommendation: Continue present treatment plan. Continue to monitor the patient either in the ICU or could be transferred to a monitor bed on selective. Cardiology will decide regarding permanent pacemaker implantation hopefully in the next 24 hours. Resume home meds. GI and DVT prophylaxis. Monitor sugars and address accordingly. Resume her levothyroxine. Consider transferring the patient to a monitor bed on selective Will follow. Time with Patient: Greater than 30
[2019-12-21] MEDS: MIDAZOLAM 2 MG/2 ML VIAL IV ONE ×2 (12:21→12:44)
[2019-12-21] MEDS ORDERED: HYDROmorphone 0.5 MG/0.5 ML SYRINGE IVP ONE (12:23)
[2019-12-21] MEDS ORDERED: LIDOCAINE 1% INJ 10MG/ML (20 ML MDV) SQ ONE ×2 (12:25→12:39)
[2019-12-21] MEDS ORDERED: fentaNYL (PF) 50 MCG/ML 2 ML AMP ONE (12:26)
[2019-12-21] MEDS: fentaNYL (PF) 50 MCG/ML 2 ML AMP IV ONE ×2 (12:34→12:44)
[2019-12-21] MEDS ORDERED: ACETAMINOPHEN TAB 325 MG TAB PO PRN (13:33)
--- NOTE | 2019-12-21 13:45 | P.PCN ---
Date of Procedure: 12/21/19 Preoperative Diagnosis: Complete A-V dissociation Postoperative Diagnosis: The same Procedure(s) Performed: Dual-chamber permanent pacemaker implantation, axillary venography Description of Procedure: HISTORY: This is a 79-year-old female was admitted to the hospital with complete AV dissociation. Patient is advised to have permanent pacemaker. She had a temporary pacemaker already. CONSENT:I have discussed the risks, benefits and alternative therapies for the above-mentioned procedure and for both sedation/analgesia as well as necessary blood product administration, if indicated, as they pertain to this patient. The patient has indicated understanding and acceptance of the risks and procedures discussed. PROCEDURE: Patient was brought to the lab in a fasting state. Patient was prepped and draped in the usual fashion. Patient was given IV sedation with fentanyl and Versed. The skin below the left clavicle was infiltrated with lidocaine. An incision was made parallel to deltopectoral groove was deepened u ntil the pectoral fascia was exposed. A pocket was created by blunt dissection and cautery. Axillary venography was performed to delineate the course of the axillary vein. 2 sticks were performed into extrathoracic portion of the axillary vein and 2 sheaths were advanced over the guidewires and left in subclavian vein. Conscious Sedation: Versed 2mg Fentanyl 100 Duration 64minutes LEADS: ATRIAL: This is manufactured by [employer] model number is 4076-45 and the serial number is [id number] VENTRICULAR: This is manufactured by [employer]. Model number is 4076-58. The serial number is [id number] THE DEVICE: This is manufactured by [employer] Model number is W1DR01 and the serial number is [id number] The ventricular lead is maneuvered l with help of a straight and curved stylets into the left ventricle apical region. Satisfactory position was obtained and threshold measurements were made. The atrial lead was then maneuvered into the right atrial appendage. And thresholds were obtained. THRESHOLDS: ATRIUM: The minimal pacing threshold 0.75 V at pulse width of 0.4. The impedance is 646. The P-wave is 3.3 VENTRICLE: The minimal patient threshold is 175 at pulse width of 0.4. The impedance is 893. R waves could not be measured R-wave:[] The leads and pulse generator remained in the pocket after it was washed with antibiotics. Pocket was closed in the usual fashion. The fascia was closed with 2-0 Prolene ,the subcutaneous tissue was closed with 3-0 Prolene and the skin was closed with 4-0 Prolene. PROGRAMMING: MODE: DDD RATE: 60 to 130 OUTPUT: Atrium: 3.5 Ventricle: 3.5 FINAL IMPRESSION: #1. Axillary venography #2. Successful implantation of dual- chamber pacemaker COMPLICATIONS: None PLAN: Monitored on telemetry unit. Continue prophylactic antibiotics. Chest x- ray in a.m.
[2019-12-21] MEDS ORDERED: ONDANSETRON 4 MG/2 ML VIAL ONE (13:53)
[2019-12-21] MEDS ORDERED: ONDANSETRON 4 MG/2 ML VIAL IVP ONE (13:54)
[2019-12-21] MEDS: PANTOPRAZOLE 40 MG/10 ML VIAL IVP SCH ×2 (15:41→23:43)
--- NOTE | 2019-12-21 16:00 | ECHOF ---
Referral Reason:Assess heart function MEASUREMENTS -------- HEIGHT: 152.4 cm WEIGHT: 105.7 kg BP: RVIDd: 2.7 cm (< 3.3) IVSd: 1.4 cm (0.6 - 1.1) LVIDd: 3.4 cm (3.9 - 5.3) LVPWd: 1.5 cm (0.6 - 1.1) IVSs: 1.7 cm LVIDs: 1.7 cm LVPWs: 1.8 cm LAESV Index (A-L): 19.39 ml/m Ao Diam: 2.6 cm (2.0 - 3.7) AV Cusp: 1.9 cm (1.5 - 2.6) LA Diam: 3.5 cm (2.7 - 3.8) MV EXCURSION: 9.718 mm (> 18.000) MV EF SLOPE: 38 mm/s (70 - 150) EPSS: 0.7 cm MV E Marlo: 1.07 m/s MV DecT: 165 ms MV A Marlo: 0.39 m/s MV E/A Ratio: 2.75 RAP: 5.00 mmHg RVSP: 29.84 mmHg FINDINGS -------- Paced rhythm. This was a technically good study. The left ventricular size is normal. There is moderate concentric left ventricular hypertrophy. O verall left ventricular systolic function is normal with, an EF between 55 - 60 %. Left ventricular fillimg pressure cannot be estimated due to paced rhythm. The right ventricle is normal in size. The left atrial size is normal. Normal LA size by volume 22+/-6 ml/m2. The right atrial size is normal. The aortic valve is trileaflet and appears structurally normal. The mitral valve is normal. The mitral valve leaflets are mildly thickened. There is trace mitral regurgitation. The tricuspid valve appears structurally normal. Trace tricuspid regurgitation present. Right michele tricular systolic pressure is normal at < 35 mmHg. There is no pulmonic regurgitation present. The aortic root size is normal. Normal inferior vena cava with normal inspiratory collapse consistent with estimated right atrial pre ssure of 5 mmHg. Echo free space indicative of a pericardial fat pad. CONCLUSIONS -------- 1. The left ventricular size is normal. 2. There is moderate concentric left ventricular hypertrophy. 3. Overall left ventricular systolic function is normal with, an EF between 55 - 60 %. 4. Left ventricular fillimg pressure cannot be estimated due to paced rhythm. 5. The mitral valve leaflets are mildly thickened. 6. Trace tricuspid regurgitation present. SALES ADMINISTRATION MANAGER: Jillian Zambrano RDCS
[2019-12-21 16:09] LABS: Hemoglobin A1C 9.3 % (4.0-6.0)
--- NOTE | 2019-12-21 16:14 | PN ---
PROGRESS NOTE DATE OF SERVICE: 12/21/2019 This 79-year-old woman was admitted with complete heart block, underwent transvenous temporary pacemaker insertion, but because of a complete AV dissociation and persistent bradycardia, dual-chamber permanent pacemaker implanted by Cardiology. Patient had some postoperative nausea at this time. There is no history of fever, rigors or chills. The patient also had evidence of UTI, started on antibiotics. Cultures have been sought. PAST MEDICAL HISTORY: Reviewed. REVIEW OF SYSTEMS: CARDIOVASCULAR SYSTEM: As mentioned earlier. GI: As mentioned earlier. : No dysuria. NERVOUS SYSTEM: No numbness or weakness. CURRENT MEDICATIONS: Reviewed include: 1. Tylenol. 2. [place]. 3. Norvasc. 4. Vitamin C. 5. Lipitor. 6. Cefazolin. 7. Apresoline. 8. NovoLog. 9. Xalatan. PHYSICAL EXAM: Patient is alert and oriented x3. Pulse 92, blood pressure 13/60, respiration 14, temperature normal, pulse ox 92% on 3 L. HEENT: Conjunctivae normal. Oral mucosa moist. NECK: No jugular venous distention. No lymph node enlargement. CARDIOVASCULAR: S1, S2, muffled. No S3, no S4, RESPIRATORY: Diminished breath sounds at the bases. A few rhonchi, no crackles. ABDOMEN: Soft, obese, nontender. LEGS: No edema, no swelling. NERVOUS SYSTEM: No focal motor or sensory deficits. LABS: WBC 9.7, hemoglobin is 14, sodium 139, potassium 4.5, glucose 177 and C-reactive protein is 12.9. UA noted. ASSESSMENT: 1. 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 2. Increased WBC. 3. Postoperative nausea and vomiting. 4. Acute urinary tract infection, present on admission. 5. Mild polycythemia. 6. Increased CRP. 7. Probable basal atelectasis on the right side. 8. Increased creatinine with mild acute renal failure with acute tubular necrosis. 9. Diabetes mellitus type 2. 10.Hypothyroidism. 11.Elevated AST, ALT, mild. 12.Hypertension. 13.Hyperlipidemia. 14.History of glaucoma. 15.History of osteopenia. 16.History of C difficile. 17.History of cholecystectomy. 18.History of degenerative joint disease. 19.History of bilateral knee joint replacements. 20.Obesity with body mass index of 44.5. 21.FULL CODE. RECOMMENDATIONS AND DISCUSSION: Recommend to continue current medications, continue symptomatic treatment. Started the patient on Rocephin. Continue with checking the cultures. For the postoperative nausea and vomiting I would recommend Protonix as well as symptomatic treatment. Closely follow with Cardiology. Guarded prognosis. Monitor in ICU. Further recommendations to follow. MMPINEDAL / IJN: [id number] /
[2019-12-21 17:06] LABS: Glucose,Whole Blood 180 mg/dL (75-99)
[2019-12-21] MEDS: ATORVASTATIN 20 MG TAB PO SCH (20:15)
[2019-12-21] MEDS: ACETAMINOPHEN TAB 325 MG TAB PO SCH (20:15)
[2019-12-21] MEDS: CHOLECALCIFEROL 1,000 UNIT TAB PO SCH (20:15)
[2019-12-21] MEDS: LATANOPROST 0.005% OPHTH DROPS 2.5 ML BTL BOTH EYES SCH (20:19)
[2019-12-21 20:36] LABS: Glucose,Whole Blood 208 mg/dL (75-99)
[2019-12-22 06:16] LABS: Glucose,Whole Blood 189 mg/dL (75-99)
[2019-12-22] MEDS: INSULIN ASPART (NovoLOG) 100 UNIT/ML VIAL SQ SCH ×4 (06:40→21:29)
[2019-12-22] MEDS: SODIUM CHLORIDE 0.9% 1,000 ML IV SCH (06:40)
[2019-12-22] MEDS: LEVOTHYROXINE 25 MCG TAB PO SCH (06:40)
--- NOTE | 2019-12-22 07:39 | XR ---
EXAMINATION TYPE: XR chest 2V DATE OF EXAM: 12/22/2019 HISTORY: Shortness of breath. COMPARISON: 12/20/2019 TECHNIQUE: Single view of the chest is submitted. FINDINGS: Demonstrated are scattered senescent parenchymal change. Progressive Perihilar and basilar infiltrates persist. Pulmonary venous congestion is noted as well. Findings may reflect pneumonia and/or underlying congestive failure. Correlate clinically and progres s studies are advised. The heart is stable. Hilar and mediastinal structures are within normal limits. Degenerative changes are seen of the dorsal spine. IMPRESSION: 1. Progressive Perihilar and basilar infiltrates persist. Pulmonary venous congestion is noted as we ll. Findings may reflect pneumonia and/or underlying congestive failure. Correlate clinically and pro luis studies are advised.
[2019-12-22 08:06] LABS: Basophils % (A) 0 %; Eosinophils # (A) 0.3 k/uL (0-0.7); Eosinophils % (A) 2 %; HCT 46.7 % (34.0-46.0); HGB 14.5 gm/dL (11.4-16.0); Hypochromasia Slight; Lymphocytes # (A) 2.8 k/uL (1.0-4.8); Lymphocytes % (A) 22 %; MCH 29.2 pg (25.0-35.0); MCHC 31.1 g/dL (31.0-37.0); Mean Platelet Volume 11.9; Monocytes # (A) 0.7 k/uL (0-1.0); Monocytes % (A) 6 %; Neutrophils # (A) 8.8 k/uL (1.3-7.7); Neutrophils % (A) 68 %; Platelet Count 153 k/uL (150-450); RBC 4.97 m/uL (3.80-5.40); RDW 14.5 % (11.5-15.5); WBC 12.9 k/uL (3.8-10.6)
[2019-12-22 08:21] LABS: Calcium 8.5 mg/dL (8.4-10.2); Potassium 4.6 mmol/L (3.5-5.1)
[2019-12-22] MEDS: HEPARIN SODIUM,PORCINE 5,000 UNIT/ML 1 ML VIAL SQ SCH ×2 (08:46→21:29)
[2019-12-22] MEDS: ASCORBIC ACID 500 MG TAB PO SCH (08:46)
[2019-12-22] MEDS: LINAGLIPTIN 5 MG TABLET PO SCH (08:46)
[2019-12-22] MEDS: PANTOPRAZOLE 40 MG/10 ML VIAL IVP SCH ×2 (08:46→21:29)
[2019-12-22] MEDS: hydrALAZINE HCL 50 MG TAB PO SCH ×4 (08:46→21:29)
[2019-12-22] MEDS: amLODIPine 10 MG TAB PO SCH (08:46)
--- NOTE | 2019-12-22 11:04 | P.PN ---
Subjective Progress Note Date: 12/22/19 History of present illness: This is a 79-year-old female patient with past medical history of hy pertension, hypothyroidism. Patient presented to the hospital due to fatigue, shortness of breath and dizziness for 2 weeks. Patient was found to have a slow heart rate and EKG revealed a complete heart block. Echocardiogram reveals EF of 55-60% with moderate concentric left hypertrophy, trace tricuspid regurgitation. Patient is status post temporary transvenous pacemaker placement followed by dual-chamber permanent pacemaker implantation which was done yesterday by Dr. Dewey. Assistant Brand Manager from the device company has interrogated the pacemaker this morning with good results and patient is cleared for discharge home today. She denies having any chest pain or shortness of breath. No lightheadedness or dizziness. Physical examination: Gen: This is a 79-year-old female. She is resting in bed and appears to be comfortable and in no acute distress VS: Afebrile, heart rate 82, blood pressure 130/59, pulse ox 92% on 3 L nasal cannula. HEENT: Head is atraumatic, normocephalic. Pupils equal, round. Sclerae is anicteric. NECK: Supple. No JVD. No lymphadenopathy. No thyromegaly. No carotid bruit. LUNGS: Clear to auscultation. No wheezes or rhonchi. No intercostal retractions. HEART: Regular rate and rhythm. No murmur. ABDOMEN: Soft. Bowel sounds are present. No masses. No tenderness. EXTREMITIES: No pedal edema. No calf tenderness. NEUROLOGICAL: Patient is awake, alert and oriented x3. Cranial nerves 2 through 12 are grossly intact. Assessment: Complete heart block status post dual-chamber permanent pacemaker implantation Hypertension Hypothyroidism Plan: Patient is cleared by cardiology for discharge Follow-up with Dr. Cardenas in 1-2 weeks Thank you kindly for this consultation. Nurse practitioner note has been reviewed, I agree with documented findings and plan of care. Patient was seen and examined. Objective - Vital Signs Vital signs: Vital Signs Temp 97.5 F L 12/22/19 08:00 Pulse 82 12/22/19 08:00 Resp 19 12/22/19 08:00 BP 130/59 12/22/19 08:00 Pulse Ox 92 L 12/22/19 08:00 Intake & Output 12/21/19 12/22/1912/21/20 18:59 06:59 18:59 Intake Total 480 100 Output Total 450 400 Balance 30 -400 100 Weight 102.5 kg Intake: IV 480 KVO 110 Sodium Chloride 0.9% 1, 150 000 ml @ 50 mls/hr IV . Q20H [facility] Rx#:[id number] Oral 100 Output: Urine 450 400 Other: Voiding Method Indwelling Catheter Indwelling Catheter Toilet # Voids 0 1 # Bowel Movements 1 - Labs CBC & Chem 7: 12/22/19 07:16 12/22/19 07:16 Labs: Abnormal Lab Results - Last 24 Hours (Table) 12/21/19 12/21/19 12/21/19 Range/Units 04:26 11:15 17:04 WBC (3.8-10.6) k/uL Hct (34.0-46.0) % Neutrophils # (1.3-7.7) k/uL Chloride (98-107) mmol/L BUN (7-17) mg/dL Creatinine (0.52-1.04) mg/dL Glucose (74-99) mg/dL POC Glucose (mg/dL) 161 H 180 H (75-99) mg/dL Hemoglobin A1c 9.3 H (4.0-6.0) % 12/21/19 12/22/19 12/22/19 Range/Units 20:34 06:15 07:16 WBC 12.9 H (3.8-10.6) k/uL Hct 46.7 H (34.0-46.0) % Neutrophils # 8.8 H (1.3-7.7) k/uL Chloride (98-107) mmol/L BUN (7-17) mg/dL Creatinine (0.52-1.04) mg/dL Glucose (74-99) mg/dL POC Glucose (mg/dL) 208 H 189 H (75-99) mg/dL Hemoglobin A1c (4.0-6.0) % 12/22/19 Range/Units 07:16 WBC (3.8-10.6) k/uL Hct (34.0-46.0) % Neutrophils # (1.3-7.7) k/uL Chloride 109 H (98-107) mmol/L BUN 29 H (7-17) mg/dL Creatinine 1.17 H (0.52-1.04) mg/dL Glucose 182 H (74-99) mg/dL POC Glucose (mg/dL) (75-99) mg/dL Hemoglobin A1c (4.0-6.0) % Microbiology - Last 24 Hours (Table) 12/20/19 23:00 Urine Culture - Final Urine,Clean Catch
[2019-12-22 11:31] VITALS: BMI 44.1
[2019-12-22 12:09] LABS: Glucose,Whole Blood 198 mg/dL (75-99)
[2019-12-22] MEDS ORDERED: ALBUTEROL NEBULIZED 2.5 MG/3 ML INHALATION PRN (14:51)
[2019-12-22] MEDS: FUROSEMIDE 10 MG/ML 4 ML VIAL IV SCH (15:38)
[2019-12-22 17:04] LABS: Glucose,Whole Blood 203 mg/dL (75-99)
--- NOTE | 2019-12-22 17:14 | PN ---
PROGRESS NOTE DATE OF SERVICE: 12/22/2019 This 79-year-old woman was admitted to the hospital with complete AV dissociation, complete heart block, had permanent pacemaker implantation. The patient also had acute UTI. Patient on broad spectrum IV antibiotics. The patient's pulse ox was found to be 84 on room air today and the chest x-ray which was reviewed personally by me showed bilateral infiltrates. The patient being closely monitored at this time. Pulmonary consultation has been sought. Past medical history reviewed. REVIEW OF SYSTEMS: CARDIOVASCULAR SYSTEM: As mentioned earlier. RESPIRATORY: As mentioned earlier. GI: As mentioned earlier. : No dysuria. NERVOUS SYSTEM: No numbness or weakness. CURRENT MEDICATIONS: Reviewed and include: Tylenol. Success 5 mg, Xanax, Norvasc and Lipitor, Rocephin 1 g, Lasix, Synthroid, Tradjenta, Restoril. Doses are reviewed. PHYSICAL EXAM: Patient is alert, oriented x3. Pulse 82. Blood pressure 135/59, respiration 19, temperature 97.4, pulse ox 92% on 3 L. HEENT: Conjunctivae normal. Oral mucosa moist. NECK is no jugular venous distention. No carotid bruit. No lymph node enlargement. CARDIOVASCULAR: S1, S2. RESPIRATIONS: Breath sounds diminished in the bases. Bilateral scattered rhonchi and crackles. ABDOMEN: Soft, nontender. LEGS are no edema. No swelling. NERVOUS SYSTEM: No focal deficits. LABS: At this time shows: WBC 12.9, hemoglobin 14.4, sodium 139, potassium 4.2. Creatinine 1.17. ASSESSMENT: 1. 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 2. Hypoxia possibly secondary to congestive heart failure acute exacerbation. 3. Rule out pneumonia. 4. Possible congestive heart failure acute exacerbation with acute on chronic diastolic dysfunction. 5. Increased WBC. 6. Postoperative nausea, vomiting. 7. Acute urinary tract infection present on admission. 8. Mild polycythemia. 9. Increased CRP. 10.Increased creatinine with mild acute renal failure, acute tubular necrosis. 11.Diabetes mellitus type 2. 12.Hypothyroidism. 13.Elevated AST, ALT, mild. 14.Hypertension. 15.Hyperlipidemia. 16.History of glaucoma. 17.History of osteopenia. 18.History of Clostridium difficile colitis. 19.History of cholecystectomy. 20.History of degenerative joint disease. 21.History of bilateral knee joint replacements. 22.Obesity with body mass index of 44.5. 23.FULL CODE. RECOMMENDATIONS AND DISCUSSION: This 79-year-old woman who presented with multiple complex medical issues, at this time, we will monitor the patient closely. Continue the current medications, management and symptomatic treatment. Continue with antibiotics. Add bronchodilators to the current regimen. 2D echo with Doppler which is read by Cardiology showed ejection fraction 55-60 percent. Closely follow with Cardiology/Pulmonology. Guarded prognosis. Further recommendations to follow. We will initiate empiric Lasix also. MMODL / IJN: [id number] /
[2019-12-22 20:29] LABS: Glucose,Whole Blood 168 mg/dL (75-99)
[2019-12-22] MEDS: ACETAMINOPHEN TAB 325 MG TAB PO SCH (21:29)
[2019-12-22] MEDS: CHOLECALCIFEROL 1,000 UNIT TAB PO SCH (21:29)
[2019-12-22] MEDS: ATORVASTATIN 20 MG TAB PO SCH (21:29)
[2019-12-22] MEDS: LATANOPROST 0.005% OPHTH DROPS 2.5 ML BTL BOTH EYES SCH (21:34)
[2019-12-23] MEDS: SODIUM CHLORIDE 0.9% 1,000 ML IV SCH ×2 (04:47→20:47)
[2019-12-23 06:23] LABS: Glucose,Whole Blood 173 mg/dL (75-99)
[2019-12-23] MEDS: LEVOTHYROXINE 25 MCG TAB PO SCH (06:29)
[2019-12-23] MEDS: INSULIN ASPART (NovoLOG) 100 UNIT/ML VIAL SQ SCH ×4 (06:31→20:40)
[2019-12-23] MEDS: HEPARIN SODIUM,PORCINE 5,000 UNIT/ML 1 ML VIAL SQ SCH ×2 (08:03→20:40)
[2019-12-23] MEDS: ASCORBIC ACID 500 MG TAB PO SCH (08:03)
[2019-12-23] MEDS: PANTOPRAZOLE 40 MG/10 ML VIAL IVP SCH ×2 (08:03→20:40)
[2019-12-23] MEDS: FUROSEMIDE 10 MG/ML 4 ML VIAL IV SCH (08:03)
[2019-12-23] MEDS: LINAGLIPTIN 5 MG TABLET PO SCH (08:03)
[2019-12-23] MEDS: amLODIPine 10 MG TAB PO SCH (08:04)
[2019-12-23] MEDS: hydrALAZINE HCL 50 MG TAB PO SCH ×4 (08:04→20:39)
[2019-12-23 08:05] LABS: Basophils # (A) 0.1 k/uL (0-0.2); Basophils % (A) 1 %; Eosinophils # (A) 0.4 k/uL (0-0.7); Eosinophils % (A) 3 %; HCT 45.2 % (34.0-46.0); HGB 14.2 gm/dL (11.4-16.0); Lymphocytes # (A) 2.9 k/uL (1.0-4.8); Lymphocytes % (A) 24 %; MCHC 31.5 g/dL (31.0-37.0); Mean Platelet Volume 10.4; Monocytes # (A) 0.6 k/uL (0-1.0); Monocytes % (A) 5 %; Neutrophils # (A) 7.6 k/uL (1.3-7.7); Neutrophils % (A) 65 %; Platelet Count 136 k/uL (150-450); RBC 4.92 m/uL (3.80-5.40); RDW 14.2 % (11.5-15.5); WBC 11.8 k/uL (3.8-10.6)
[2019-12-23 08:21] LABS: Calcium 8.8 mg/dL (8.4-10.2); Potassium 4.6 mmol/L (3.5-5.1)
--- NOTE | 2019-12-23 08:43 | XR ---
EXAMINATION TYPE: XR chest 1V portable DATE OF EXAM: 12/23/2019 COMPARISON: Prior chest x-ray 12/22/2019 HISTORY: Congestive heart failure TECHNIQUE: Single frontal view of the chest is obtained. FINDINGS: Right hemidiaphragm remains elevated, heart is enlarged. There is no evident pneumothorax. There may be some improvement in aeration within the lungs. Generator in the left pectoral region, l georges in right atrium and ventricle are stable. IMPRESSION: Suspect some improvement in aeration.
--- NOTE | 2019-12-23 11:46 | P.PN ---
Subjective Progress Note Date: 12/23/19 History of present illness: This is a 79-year-old female patient with past medical history of hy pertension, hypothyroidism. Patient presented to the hospital due to fatigue, shortness of breath and dizziness for 2 weeks. Patient was found to have a slow heart rate and EKG revealed a complete heart block. Echocardiogram reveals EF of 55-60% with moderate concentric left hypertrophy, trace tricuspid regurgitation. Patient is status post temporary transvenous pacemaker placement followed by dual-chamber permanent pacemaker implantation which was done Monday by Dr. Dewey. Patient seen and examined this morning, overall doing well, sitting up in the chair at bedside. Repeat chest x-ray shows some improvement in aeration. Blood pressure 140/60, heart rate in the 70s, 95% on 3 L of oxygen. White blood cell count 11.8, hemoglobin 14.2, platelet count 136. Sodium 135, potassium 4.6, BUN 27, creatinine 1.0. Objective - Vital Signs Vital signs: Vital Signs Temp 97.3 F L 12/23/19 08:00 Pulse 69 12/23/19 08:00 Resp 20 12/23/19 08:00 BP 140/60 12/23/19 08:00 Pulse Ox 95 12/23/19 08:00 Intake & Output 12/22/19 12/23/19 12/23/19 18:59 06:59 18:59 Intake Total 100 240 540 Output Total 500 203 550 Balance -400 37 -10 Weight 102.5 kg 104.9 kg Intake: Oral 100 240 540 Output: Urine 500 203 550 Other: Voiding Method Toilet Bedside Commode Bedside Commode Incontinent # Voids 6 2 1 # Bowel Movements 1 - Exam Physical examination: Gen: This is a 79-year-old female. She is resting in bed and appears to be comfortable and in no acute distress VS: Afebrile, heart rate 82, blood pressure 140/60, pulse ox 95% on 3 L nasal cannula. HEENT: Head is atraumatic, normocephalic. Pupils equal, round. Sclerae is anicteric. NECK: Supple. No JVD. No lymphadenopathy. No thyromegaly. No carotid bruit. LUNGS: Clear to auscultation. No wheezes or rhonchi. No intercostal retractions. Site of pacemaker implantation, dressing is dry and intact HEART: Regular rate and rhythm. No murmur. ABDOMEN: Soft. Bowel sounds are present. No masses. No tenderness. EXTREMITIES: No pedal edema. No calf tenderness. NEUROLOGICAL: Patient is awake, alert and oriented x3. Cranial nerves 2 through 12 are grossly intact. - Labs CBC & Chem 7: 12/23/19 07:41 12/23/19 07:41 Labs: Abnormal Lab Results - Last 24 Hours (Table) 12/22/19 12/22/19 12/22/19 Range/Units 12:07 17:02 20:28 WBC (3.8-10.6) k/uL Plt Count (150-450) k/uL Sodium (137-145) mmol/L BUN (7-17) mg/dL Creatinine (0.52-1.04) mg/dL Glucose (74-99) mg/dL POC Glucose (mg/dL) 198 H 203 H 168 H (75-99) mg/dL 12/23/19 12/23/19 12/23/19 Range/Units 06:20 07:41 07:41 WBC 11.8 H (3.8-10.6) k/uL Plt Count 136 L (150-450) k/uL Sodium 135 L (137-145) mmol/L BUN 27 H (7-17) mg/dL Creatinine 1.05 H (0.52-1.04) mg/dL Glucose 178 H (74-99) mg/dL POC Glucose (mg/dL) 173 H (75-99) mg/dL Microbiology - Last 24 Hours (Table) 12/21/19 14:58 Urine Culture - Final Urine,Catheterized 12/20/19 23:00 Urine Culture - Final Urine,Clean Catch Assessment and Plan Plan: Assessment and plan #1 complete heart block status post dual-chamber permanent pacemaker implantation #2 hypertension #3 hypothyroidism Plan From cardiology's perspective, patient may be able to be discharged home once cleared by primary. We will make her a follow-up appointment in the device clinic and with Dr. Cardenas in one to 2 weeks. DNP note has been reviewed, I agree with a documented findings and plan of care. Patient was seen and examined.
[2019-12-23 11:48] LABS: Glucose,Whole Blood 251 mg/dL (75-99)
--- NOTE | 2019-12-23 12:34 | CDI ---
Documentation Clarification Form Date: 12/23/2019 12:12:45 PM From: Annita Sandoval RN CCDS Admit Date: 12/20/2019 05:20:00 PM Patient Name: Juana Delgado Visit Number: [id number] Discharge Date: ATTENTION: The Clinical Documentation Specialists (CDI) and [facility] Coding Staff appreciate your assistance in clarifying documentation. Please respond to the clarification below the line at the bottom and electronically sign. The CDI & [facility] Coding staff will review the response and follow-up if needed. Please note: Queries are made part of the Legal Health Record. If you have any questions, please contact the author of this message via ITS. Dr. Ramiro Navas Hypoxia possibly secondary to congestive heart failure acute exacerbation is documented in your progress note 12/21 History/Risk Factors: 79-year-old female presented with extreme weakness, shortness of breath and palpitations. Medical history: DM, HTN, HLD and Hypothyroidism. Admitted with complete heart block with complete AV dissociation, status post temporary intravenous pacemaker. Clinical Indicators: 12/19 Admission Vital Signs: B/P 173/54; HR 36; Temp 97.9 F oral; RR 26; SpO2 93% room air 12/21 Vital signs: B/P 130/59; HR 82; Temp 97.5 F oral; RR 19; SpO2 92% 3L nasal cannula 12/21 Internal medicine progress note: Breath sounds diminished in the bases. Bilateral scattered rhonchi and crackles. 12/21 CXR: Progressive perihilar and basilar infiltrates persist. Pulmonary venous congestion. Treatment: 12/21 Lasix 40mg IV daily Breathing Tx: 12/21 Ventolin Inhalation RT QID PRN; O2 2L to 3L In your professional opinion, can you please clarify if these findings signify one of the following conditions? Acute Respiratory Failure Acute Respiratory Distress Acute Respiratory Insufficiency Other Diagnosis, please specify Unable to determine Specificity: If known, further specify (if known): With hypercapnia? (pCO2 >50 and pH <7.35) With hypoxia? (pO2 <60 mm Hg or SpO2 <91% on room air) (Last Query Form Revision: October 2018) Acute Respiratory Distress MTDD
[2019-12-23 12:59] VITALS: RESP 18
--- NOTE | 2019-12-23 14:52 | CT ---
EXAMINATION TYPE: CT angio chest DATE OF EXAM: 12/23/2019 2:42 PM COMPARISON: CT chest January 21, 2019 HISTORY: Elevated d-dimer, shortness of breath CT DLP: 691.2 mGycm Automated exposure control for dose reduction was used. CONTRAST: CTA scan of the thorax is performed with IV Contrast, patient injected with 80 mL of Isovue 370, pulm onary embolism protocol. 3D reconstructed images are created on an independent workstation and revie wed.. FINDINGS: LUNGS: Low lung volumes with elevated right hemidiaphragm redemonstrated. Exam suboptimal as patient unable to hold breath especially for subcentimeter nodules. Suspect new calcified 5 mm medial left up per lobe nodule or granuloma axial image 12. Dependent atelectasis and/or Limited consolidation along the fissures and in the lower lobes, left greater than right. No pleural effusion or pneumothorax se en bilaterally MEDIASTINUM: There is suboptimal bolus with heterogeneity and there are equal contrast within right a nd left heart systems but no CT evidence for acute pulmonary embolism. There are prominent bilateral hilar lymph nodes On current study. No pericardial effusion is seen. New Mild cardiomegaly with ne w dual lead pacemaker. OTHER: Small sized hiatal hernia slightly more prominent from prior study. Cholecystectomy clips red emonstrated. Visualized liver low dense cyst with diffuse fatty infiltration. Surgical clips deep in the left breast redemonstrated. IMPRESSION: 1. Suboptimal study without CT evidence for acute pulmonary embolism. 2. Low lung volumes and cardiomegaly on current study. Dependent atelectasis and/or Limited consolida tion noted bilaterally.
[2019-12-23 16:38] LABS: Glucose,Whole Blood 192 mg/dL (75-99)
[2019-12-23] MEDS: ALBUTEROL NEBULIZED 2.5 MG/3 ML INHALATION SCH (19:31)
--- NOTE | 2019-12-23 20:13 | PN ---
PROGRESS NOTE DATE OF SERVICE: 12/23/2019 This 79-year-old woman who was admitted with complete AV block and complete AV dissociation had a pacemaker implantation. Patient also had hypoxia. The patient also had possible bibasilar atelectasis. The patient is being closely monitored at this time. Past medical history reviewed. REVIEW OF SYSTEMS: CARDIOVASCULAR SYSTEM: No angina, palpitations. RESPIRATORY SYSTEM: As mentioned earlier. GI: As mentioned earlier. : No dysuria or retention. NERVOUS SYSTEM: No numbness, weakness. CURRENT MEDICATIONS: The current medications are reviewed. They include Tylenol, [place], Ventolin, Xanax, Norvasc, vitamin C, Lipitor, Rocephin, heparin, Xalatan, Narcan, Protonix. Doses are reviewed. PHYSICAL EXAMINATION: Patient alert and oriented x3. Pulse is 101, blood pressure 123/59, respiration 18, temperature 97.6, pulse ox 96% on 2 L. HEENT: Conjunctivae normal. NECK: No jugular venous distention. CARDIOVASCULAR SYSTEM: S1, S2 muffled. RESPIRATORY SYSTEM: Breath sounds diminished at the bases. A few scattered rhonchi and crackles. ABDOMEN: Soft, non-tender. LEGS: No edema. No swelling. NERVOUS SYSTEM: No focal deficit. LABS: WBC 11.8. D-dimer is 11.3. Sodium is 135. Glucose noted. ASSESSMENT: 1. Complete heart block and complete AV dissociation, status post transvenous pacemaker implantation as well as permanent pacemaker. 2. Hypoxia, possibly secondary to congestive heart failure, acute exacerbation with acute on chronic diastolic dysfunction, ejection fraction 50% to 60%. 3. Possible bibasilar atelectasis. 4. Increased white count. 5. Elevated D-dimer without any evidence of pulmonary embolism. 6. Postoperative nausea and vomiting. 7. Acute urinary tract infection, present on admission. 8. Mild polycythemia. 9. Increased CRP. 10.Increased creatinine with mild acute renal failure, acute tubular necrosis. 11.Diabetes mellitus, type 2. 12.Hypothyroidism. 13.Elevated AST and ALT, mild. 14.Hypertension. 15.Hyperlipidemia. 16.History of glaucoma. 17.History of osteopenia. 18.History of Clostridium difficile colitis. 19.History of cholecystectomy. 20.History of degenerative joint disease. 21.History of bilateral knee joint replacements. 22.Obesity with body mass index of 44.5. 23.FULL CODE. RECOMMENDATIONS AND DISCUSSION: I recommend to continue current medications, continue with the monitoring, symptomatic treatment. Continue with bronchodilators, diuretics. Otherwise, continue with the empiric antibiotics. Closely follow with Cardiology and Pulmonology. Guarded prognosis because of multiple complex medical issues. Further recommendations to follow. MMODL / IJN: [id number] /
[2019-12-23 20:33] LABS: Glucose,Whole Blood 272 mg/dL (75-99)
[2019-12-23] MEDS: ATORVASTATIN 20 MG TAB PO SCH (20:39)
[2019-12-23] MEDS: CHOLECALCIFEROL 1,000 UNIT TAB PO SCH (20:39)
[2019-12-23] MEDS: ACETAMINOPHEN TAB 325 MG TAB PO SCH (20:39)
[2019-12-23] MEDS: LATANOPROST 0.005% OPHTH DROPS 2.5 ML BTL BOTH EYES SCH (20:43)
[2019-12-24] MEDS: HYDROcodone/APAP 5-325MG 1 EACH TAB PO PRN ×2 (04:02→10:50)
[2019-12-24 06:09] LABS: Glucose,Whole Blood 215 mg/dL (75-99)
[2019-12-24] MEDS: LEVOTHYROXINE 25 MCG TAB PO SCH (06:42)
[2019-12-24] MEDS: INSULIN ASPART (NovoLOG) 100 UNIT/ML VIAL SQ SCH ×3 (06:42→16:03)
[2019-12-24 08:26] VITALS: PULSE 97
--- NOTE | 2019-12-24 08:46 | P.PN ---
Subjective Progress Note Date: 12/24/19 Principal diagnosis: Third-degree heart block with associated shortness of breath and weakness 79-year-old female is admitted with a complete AV block and a complete AV disassociation. Patient's associated symptoms shortness of breath and weakness.patient required oxygen for low oxygen saturation saturation.patient had temporary venous pacemaker placed ;after patient was stabilized patient had permanent pacemaker placed .patient denies chest pain, shortness of breath at rest ,fevers, chills. Patient complaint of exertional dyspnea and generalized weakness Objective - Vital Signs Vital signs: Vital Signs Temp 98.0 F 12/24/19 04:00 Pulse 94 12/24/19 04:00 Resp 18 12/24/19 04:00 BP 161/70 12/24/19 04:00 Pulse Ox 93 L 12/24/19 04:00 Intake & Output 12/23/19 12/24/19 12/24/19 18:59 06:59 18:59 Intake Total 590 Output Total 950 760 Balance -360 -760 Weight 103.7 kg Intake: Intake, IV Titration 50 Amount cefTRIAXone 1 gm In 50 Sodium Chloride 0.9% 50 ml @ 100 mls/hr IVPB Q24HR [facility] Rx#:[id number] Oral 540 Output: Urine 950 760 Other: Voiding Method Bedside Commode Bedside Commode Bedside Commode # Voids 1 - Constitutional General appearance: Present: obese - EENT Eyes: Present: EOMI, PERRLA ENT: Present: normal oropharynx Ears: bilateral: normal - Neck Neck: Present: normal ROM Carotids: bilateral: upstroke normal Thyroid: bilateral: normal size - Respiratory Respiratory: bilateral: rales (Bilateral posterior bases), negative: diminished (Bilateral anterior) - Cardiovascular Rhythm: regular Heart sounds: normal: S1, S2 - Peripheral edema leg Peripheral Edema: bilateral: 2+ - Peripheral pulses dorsalis pedis Peripheral Pulses: bilateral: Diminished - Gastrointestinal General gastrointestinal: Present: normal bowel sounds - Neurologic Neurologic: Present: CNII-XII intact - Musculoskeletal Musculoskeletal: Present: generalized weakness - Psychiatric Psychiatric: Present: A&O x's 3, appropriate affect, intact judgment & insight - Allied health notes Allied health notes reviewed: nursing - Labs CBC & Chem 7: 12/23/19 07:41 12/23/19 07:41 Labs: Abnormal Lab Results - Last 24 Hours (Table) 12/23/19 12/23/19 12/23/19 Range/Units 11:47 12:07 16:35 D-Dimer 1.31 H (<0.60) mg/L FEU POC Glucose (mg/dL) 251 H 192 H (75-99) mg/dL 12/23/19 12/24/19 Range/Units 20:32 06:08 D-Dimer (<0.60) mg/L FEU POC Glucose (mg/dL) 272 H 215 H (75-99) mg/dL Microbiology - Last 24 Hours (Table) 12/21/19 14:58 Urine Culture - Final Urine,Catheterized - Imaging and Cardiology Chest x-ray: report reviewed CT scan - chest: report reviewed Echocardiogram Assessment and Plan Assessment: Complete heart block and complete AV disassociationstatus post trans-venous pacemaker implantation as well as permanent pacemaker bibasilar atelectasis Leukocytosis Acute urinary tract infectionpresent on admission Diabetes mellitus type 2 Hypothyroidism Hypertension Hyperlipidemia History of glaucoma History of osteopenia History of Clostridium difficile colitis History of cholecystectomy History of degenerative joint disease History of bilateral knee joint replacement Obesity of a BMI of 44.5 (1) Third degree heart block Narrative/Plan: Dual-chamber pacemaker placed Current Visit: Yes Status: Resolved Code(s): I44.2 - ATRIOVENTRICULAR BLOCK, COMPLETE SNOMED Code(s): 76259069 Plan: Complete heart block and A-V dissociationdual-chamber permanent pacemaker placedcleared by cardiology Continue pulmonology consultfor exertional shortness of breath, and possible hypoxia requiring 3 L of oxygen Continue medical management Continue home medications and closely monitor Time with Patient: Greater than 30
[2019-12-24 10:33] LABS: Basophils # (A) 0.1 k/uL (0-0.2); Basophils % (A) 1 %; Eosinophils # (A) 0.1 k/uL (0-0.7); Eosinophils % (A) 1 %; HCT 42.6 % (34.0-46.0); Lymphocytes # (A) 1.8 k/uL (1.0-4.8); Lymphocytes % (A) 12 %; MCH 29.5 pg (25.0-35.0); MCHC 32.8 g/dL (31.0-37.0); MCV 90.1 fL (80.0-100.0); Monocytes % (A) 7 %; Neutrophils # (A) 11.7 k/uL (1.3-7.7); Neutrophils % (A) 78 %; Platelet Count 139 k/uL (150-450); RBC 4.73 m/uL (3.80-5.40); RDW 14.2 % (11.5-15.5)
[2019-12-24 10:38] LABS: Albumin 3.3 g/dL (3.5-5.0); Calcium 8.6 mg/dL (8.4-10.2); Magnesium 1.8 mg/dL (1.6-2.3); Potassium 4.6 mmol/L (3.5-5.1); Total Bilirubin 0.9 mg/dL (0.2-1.3); Total Protein 5.9 g/dL (6.3-8.2)
[2019-12-24] MEDS: amLODIPine 10 MG TAB PO SCH (10:56)
[2019-12-24] MEDS: ASCORBIC ACID 500 MG TAB PO SCH (10:57)
[2019-12-24] MEDS: FUROSEMIDE 10 MG/ML 4 ML VIAL IV SCH (10:59)
[2019-12-24] MEDS: HEPARIN SODIUM,PORCINE 5,000 UNIT/ML 1 ML VIAL SQ SCH (11:00)
[2019-12-24] MEDS: hydrALAZINE HCL 50 MG TAB PO SCH ×3 (11:01→16:03)
[2019-12-24] MEDS: LINAGLIPTIN 5 MG TABLET PO SCH (11:02)
[2019-12-24] MEDS: PANTOPRAZOLE 40 MG/10 ML VIAL IVP SCH (11:02)
[2019-12-24 11:36] LABS: Glucose,Whole Blood 254 mg/dL (75-99)
[2019-12-24] MEDS: ALBUTEROL NEBULIZED 2.5 MG/3 ML INHALATION SCH ×2 (11:55→11:56)
--- NOTE | 2019-12-24 11:55 | P.PN ---
Subjective Progress Note Date: 12/24/19 History of present illness: This is a 79-year-old female patient with past medical history of hy pertension, hypothyroidism. Patient presented to the hospital due to fatigue, shortness of breath and dizziness for 2 weeks. Patient was found to have a slow heart rate and EKG revealed a complete heart block. Echocardiogram reveals EF of 55-60% with moderate concentric left hypertrophy, trace tricuspid regurgitation. Patient is status post temporary transvenous pacemaker placement followed by dual-chamber permanent pacemaker implantation which was done Monday by Dr. Dewey. Patient seen and examined this morning, overall doing well, sitting up in the chair at bedside. Repeat chest x-ray shows some improvement in aeration. Blood pressure 140/60, heart rate in the 70s, 95% on 3 L of oxygen. White blood cell count 11.8, hemoglobin 14.2, platelet count 136. Sodium 135, potassium 4.6, BUN 27, creatinine 1.0. 12/24/2019 Patient seen and examined this morning. Blood pressure 148/60 with a heart rate in the 90s, 93% on 3 L of oxygen. White blood cell count 15.0, hemoglobin 14, platelet count 139. Sodium 134, potassium 4.6, BUN 26, creatinine 0.8, magnesium 1.8. Objective - Vital Signs Vital signs: Vital Signs Temp 97.9 F 12/24/19 08:00 Pulse 97 12/24/19 08:00 Resp 18 12/24/19 08:00 BP 148/63 12/24/19 08:00 Pulse Ox 93 L 12/24/19 04:00 Intake & Output 12/23/19 12/24/19 12/24/19 18:59 06:59 18:59 Intake Total 590 50 Output Total 950 760 Balance -360 -760 50 Weight 103.7 kg Intake: Intake, IV Titration 50 50 Amount cefTRIAXone 1 gm In 50 50 Sodium Chloride 0.9% 50 ml @ 100 mls/hr IVPB Q24HR [facility] Rx#:[id number] Oral 540 Output: Urine 950 760 Other: Voiding Method Bedside Commode Bedside Commode Bedside Commode # Voids 1 - Exam Physical examination: Gen: This is a 79-year-old female. She is resting in bed and appears to be comfortable and in no acute distress VS: Afebrile, heart rate 82, blood pressure 140/60, pulse ox 95% on 3 L nasal cannula. HEENT: Head is atraumatic, normocephalic. Pupils equal, round. Sclerae is anict [place]. NECK: Supple. No JVD. No lymphadenopathy. No thyromegaly. No carotid bruit. LUNGS: Clear to auscultation. No wheezes or rhonchi. No intercostal retractions. Site of pacemaker implantation, dressing is dry and intact HEART: Regular rate and rhythm. No murmur. ABDOMEN: Soft. Bowel sounds are present. No masses. No tenderness. EXTREMITIES: No pedal edema. No calf tenderness. NEUROLOGICAL: Patient is awake, alert and oriented x3. Cranial nerves 2 through 12 are grossly intact. - Labs CBC & Chem 7: 12/24/19 09:12/24/19 09:31 Labs: Abnormal Lab Results - Last 24 Hours (Table) 12/23/19 12/23/19 12/23/19 Range/Units 12:07 16:35 20:32 WBC (3.8-10.6) k/uL Plt Count (150-450) k/uL Neutrophils # (1.3-7.7) k/uL D-Dimer 1.31 H (<0.60) mg/L FEU Sodium (137-145) mmol/L BUN (7-17) mg/dL Glucose (74-99) mg/dL POC Glucose (mg/dL) 192 H 272 H (75-99) mg/dL Total Protein (6.3-8.2) g/dL Albumin (3.5-5.0) g/dL 12/24/19 12/24/19 12/24/19 Range/Units 06:08 09:31 09:31 WBC 15.0 H (3.8-10.6) k/uL Plt Count 139 L (150-450) k/uL Neutrophils # 11.7 H (1.3-7.7) k/uL D-Dimer (<0.60) mg/L FEU Sodium 134 L (137-145) mmol/L BUN 26 H (7-17) mg/dL Glucose 268 H (74-99) mg/dL POC Glucose (mg/dL) 215 H (75-99) mg/dL Total Protein 5.9 L (6.3-8.2) g/dL Albumin 3.3 L (3.5-5.0) g/dL 12/24/19 Range/Units 11:35 WBC (3.8-10.6) k/uL Plt Count (150-450) k/uL Neutrophils # (1.3-7.7) k/uL D-Dimer (<0.60) mg/L FEU Sodium (137-145) mmol/L BUN (7-17) mg/dL Glucose (74-99) mg/dL POC Glucose (mg/dL) 254 H (75-99) mg/dL Total Protein (6.3-8.2) g/dL Albumin (3.5-5.0) g/dL Microbiology - Last 24 Hours (Table) 12/21/19 14:58 Urine Culture - Final Urine,Catheterized Assessment and Plan Plan: Assessment and plan #1 complete heart block status post dual-chamber permanent pacemaker implantation #2 hypertension #3 hypothyroidism Plan From cardiology's perspective, patient may be able to be discharged home once cleared by primary. We will make her a follow-up appointment in the device clinic and with Dr. Cardenas in one to 2 weeks. DNP note has been reviewed, I agree with a documented findings and plan of care. Patient was seen and examined.
[2019-12-24 12:50] VITALS: BP 165/64; TEMP 97.3
--- NOTE | 2019-12-24 13:09 | P.PN ---
Progress Note - Text Progress Note Date: 12/24/19 contacted regarding patient having low oxygen saturation of 84 %, pt placed oxygen. awaiting recommendations for pulmonary
--- NOTE | 2019-12-24 15:07 | XR ---
EXAMINATION TYPE: XR cervical spine comp DATE OF EXAM: 12/24/2019 COMPARISON: NONE HISTORY: Neck pain TECHNIQUE: Four views are submitted. FINDINGS: The odontoid is intact. There are no compression deformities. The prevertebral soft tissue structur es are within normal limits. Multilevel facet arthropathy. There is facet degenerative disc disease C5-6 and C6-C7. Slight anterolisthesis of C3 on 4 and C4 on C5. Calcifications in the soft tissue the neck are noted. There is multilevel foraminal encroachment bilaterally. IMPRESSION: 1. Multilevel degenerative disc disease and foraminal encroachment with multilevel facet arthropathy. .
[2019-12-24] MEDS: SODIUM CHLORIDE 0.9% 1,000 ML IV SCH (16:03)
[2019-12-24] MEDS ORDERED: PANTOPRAZOLE 40 MG TABLET PO SCH (17:30)
--- NOTE | 2019-12-25 08:07 | P.DS ---
Providers Date of admission: 12/20/19 17:20 Expected date of discharge: 12/24/19 Attending physician: Moises Beckford Consults: 12/20/19 16:17 Consult Physician Routine Consulting Provider: [facility] Consult Reason/Comments: third degree heart block Do you want consulting provider notified?: Already Contacted Consult Physician Stat Consulting Provider: Sam Johnson Consult Reason/Comments: acute respiratory insuff, third degree heart block Do you want consulting provider notified?: Already Contacted Primary care physician: Moises Beckford Hospital Course: 79-year-old female was sent from primary care office for third degree AV block with associated shortness of breath and generalized weakness noted progression of symptoms over the last 2 weeks per patient and family. Patient was sent to the emergency department diagnostic workup and intervention for third degree heart block cardiology was consulted regarding third-degree heart block and transvenous temporary pacemaker was placed patient was admitted to the ICU for duration of 2 days. Cardiology placed a dual-chamber permanent pacemaker. Patient had intermittent exertional shortness of breath with episodes of hypoxia and elevated d-dimerCT of the chest was orderedno pulmonary embolisms noted. On dictation of radiologist pulmonary nodules notedpulmonary critical care will follow-up with CT of the chest in 3 months. Patient was cleared by cardiology and pulmonology. From medical standpoint patient was cleared to go home and follow-up with our services in 1-2 days. Assessment: Complete heart block and complete A-V dissociationresolvedstatus post transvenous pacemaker and implantation as well as permanent pacemaker Diabetes mellitus type 2 Hypothyroidism Hypertension Hyperlipidemia History of glaucoma History of osteopenia History of Clostridium difficile colitis History of cholecystectomy History of degenerative disc disease History of bilateral knee replacements Health Concerns: Difficulty with ambulation Currently oxygen dependentnew onset Pertinent Studies: Chest x-ray CTA of the chest Echocardiogram C-spine x-ray Procedures: Transvenous temporary pacemaker Permanent pacemaker dual chamber Patient Condition at Discharge: Fair Plan - Discharge Summary Discharge Rx Participant: No New Discharge Prescriptions: New Cyclobenzaprine [Flexeril] 5 mg PO TID #30 tablet Continue amLODIPine BESYLATE/BENAZEPRIL [Lotrel 10-20 MG] 1 cap PO HS Levothyroxine Sodium [Synthroid] 25 mcg PO QAM Latanoprost [Xalatan 0.005%] 1 drop BOTH EYES HS Cholecalciferol (Vitamin D3) [Vitamin D3] 2,000 unit PO HS sitaGLIPtin PHOSPHATE [Januvia] 100 mg PO DAILY Temple-3 Fatty Acids/Fish Oil [Fish Oil 1,000 mg Softgel] 1 cap PO DAILY Rosuvastatin [Crestor] 10 mg PO HS Ascorbic Acid [Vitamin C] 1,000 mg PO DAILY Changed Acetaminophen [Tylenol Arthritis] 650 mg PO Q6HR #90 tab Discharge Medication List Cholecalciferol (Vitamin D3) [Vitamin D3] 2,000 unit PO HS 07/28/16 [History] Latanoprost [Xalatan 0.005%] 1 drop BOTH EYES HS 07/28/16 [History] Levothyroxine Sodium [Synthroid] 25 mcg PO QAM 07/28/16 [History] amLODIPine BESYLATE/BENAZEPRIL [Lotrel 10-20 MG] 1 cap PO HS 07/28/16 [History] sitaGLIPtin PHOSPHATE [Januvia] 100 mg PO DAILY 08/31/17 [History] Ascorbic Acid [Vitamin C] 1,000 mg PO DAILY 12/20/19 [History] Temple-3 Fatty Acids/Fish Oil [Fish Oil 1,000 mg Softgel] 1 cap PO DAILY 12/20/19 [History] Rosuvastatin [Crestor] 10 mg PO HS 12/20/19 [History] Acetaminophen [Tylenol Arthritis] 650 mg PO Q6HR #90 tab 12/24/19 [Rx] Cyclobenzaprine [Flexeril] 5 mg PO TID #30 tablet 12/24/19 [Rx] Follow up Appointment(s)/Referral(s): Moises Beckford MD [Primary Care Provider] - 12/27/19 11:00 am (MONDAY ) Sam Johnson MD [STAFF PHYSICIAN] - 12/31/19 2:15 pm (MONDAY) [facility], [NON-STAFF] - Cee Mckeon [NON-STAFF] - Kimani Cardenas MD [STAFF PHYSICIAN] - 12/26/19 11:00 am (DEVICE CHECK-12/26/2019-1100 ) Patient Instructions/Handouts: Heart Block (DC) Activity/Diet/Wound Care/Special Instructions: Patient will require home oxygen at discharge secondary to hypoxia from dx: chf PACEMAKER Keep dressing dry and intact for 5 days. You may cover the area with saran or cling wrap, prior to a shower. The dressing will be removed in the [facility] at [facility]. Absorbable sutures were used to close the wound. Avoid raising the left arm above the shoulder level. (4-week restriction). Avoid arm movements, like backscratching, rubbing your head, or pulling on a cord with your left arm. (4-week restriction). Gentle range of motion movements of the left shoulder should be performed to avoid a frozen shoulder. (Pendulum exercises). The opposite arm may be used freely. Avoid driving for 7 days. Avoid activities such as golfing, swimming, week whacking, lifting more than 10 pounds of weight, bowling, gymnastics and weight training/lifting. (6-week restriction). Activities such as chopping wood, pull-ups, power lifting, welding, and being around an induction cooktop will always be a problem and can interfere with your pacemaker. Your arm sling is only a reminder to not lift your arm above your head. You do not need to keep the arm completely immobilized. You are free to move your arm and use it for normal activities. In case of any problems, please call [facility] [place] @ [phone]. Discharge Disposition: HOME SELF-CARE
== END 2019-12-24 17:30 | disposition home health service (06) | DRG 242 ==
LOC: EC 14:50 → 2SICU 17:20 → 1SOBS 17:27 → UNDOADMOB 17:27 → 2SICU 19:42 → 3SCARD 12-21 18:43
PROVIDERS: ADMIT Family Medicine; ATTEND Family Medicine
PROC: 5A1213Z Performance of Cardiac Pacing, Intermittent (ICD-10-PCS; 2019-12-20)
PROC: B51N1ZZ Fluoroscopy of Left Upper Extremity Veins using Low Osmolar Contrast (ICD-10-PCS; principal; 2019-12-21 11:19)
PROC: 0JH606Z Insertion of Pacemaker, Dual Chamber into Chest Subcutaneous Tissue and Fascia, Open Approach (ICD-10-PCS; principal; 2019-12-21 11:19)
PROC: 02HK3JZ Insertion of Pacemaker Lead into Right Ventricle, Percutaneous Approach (ICD-10-PCS; principal; 2019-12-21 11:19)
PROC: 02H63JZ Insertion of Pacemaker Lead into Right Atrium, Percutaneous Approach (ICD-10-PCS; principal; 2019-12-21 11:19)
DX: I44.2 Atrioventricular block, complete (principal); N17.0 Acute kidney failure with tubular necrosis; I50.33 Acute on chronic diastolic (congestive) heart failure; Z68.41 Body mass index [BMI] 40.0-44.9, adult; J98.11 Atelectasis; N39.0 Urinary tract infection, site not specified; E11.9 Type 2 diabetes mellitus without complications; E03.9 Hypothyroidism, unspecified; R06.03 Acute respiratory distress; D75.1 Secondary polycythemia; E66.9 Obesity, unspecified; E78.5 Hyperlipidemia, unspecified; I11.0 Hypertensive heart disease with heart failure; Z96.653 Presence of artificial knee joint, bilateral; M85.80 Other specified disorders of bone density and structure, unspecified site; M19.90 Unspecified osteoarthritis, unspecified site; Z79.890 Hormone replacement therapy; Z82.49 Family history of ischemic heart disease and other diseases of the circulatory system; Z79.84 Long term (current) use of oral hypoglycemic drugs; Z83.3 Family history of diabetes mellitus; Z86.19 Personal history of other infectious and parasitic diseases; Z90.49 Acquired absence of other specified parts of digestive tract; Z90.710 Acquired absence of both cervix and uterus; Z99.81 Dependence on supplemental oxygen; Z98.890 Other specified postprocedural states; Z90.89 Acquired absence of other organs; Z80.0 Family history of malignant neoplasm of digestive organs
CPT/HCPCS: 33208; 33210; 36415; 71045; 71046; 71275; 72050; 80048; 80053; 81001; 83036; 83735; 83880; 84100; 84443; 84484; 85025; 85379; 85610; 85652; 85730; 86140; 86850; 86900; 86901; 87086; 93005; 93306; 99285

== ENCOUNTER → 2020-06-16 | Outpatient (CLI) | payer MEDICARE ==
--- NOTE | 2020-06-17 09:05 | BD ---
EXAMINATION TYPE: Axial Bone Density DATE OF EXAM: 06/16/2020 COMPARISON: NONE CLINICAL HISTORY: Height: 4 FT 11 1/2 IN Weight: 205 FRAX RISK QUESTIONS: Alcohol (3 or more units per day): NO Family History (Parent hip fracture): NO Glucocorticoids (More than 3mos): NO (Ex: prednisone, prednisolone, methylprednisolone, dexamethasone, and hydrocortisone). History of Fracture in Adulthood: NO Secondary Osteoporosis: 1. Type 1 Diabetes: NO 2. Hyperthyroidism: NO 3. Menopause before 45: PART AGE 42 4. Malnutrition: NO 5. Chronic liver disease: NO Rheumatoid Arthritis: NO Current Tobacco Use: NO RISK FACTORS HISTORY OF: Surgery to Spine/Hip(right/left)/Wrist (right/left): NO Family History of Osteoporosis: NO Active: NO Diet low in dairy products/other sources of calcium: NO Postmenopausal woman: PART AGE 42 Take estrogen and/or progesterone medications: TOOK HRT FOR 26 YEARS NO LONGER TAKES Lost more than 2 inches in height since high school: YES MEDICATIONS: Thyroid Medications: YES Which medication: SYNTHROID How Long: APPROX 13 YEARS Additional Medications: SYNTHROID, AMLODIPINE BENAZEPRIL, ROSUVASTATIN, JANUVIA, FISH OIL, ELIQUIS, H YDROCHLOROTHIAZIDE Additional History: EXAM MEASUREMENTS: Bone mineral densitometry was performed using the [employer]. Bone mineral density as measured about the Lumbar spine is: ----- L1-L4(G/cm2): 1.289 T Score Values are as follows: ----- L2: 1.1 ----- L3: 1.5 ----- L4: 0.9 ----- L1-L4: 0.9 Bone mineral density has: DECREASED -1.6 % since study of: 2017 Bone mineral density about the R hip (g/cm2): 0.872 Bone mineral density about the L hip (g/cm2): 0.780 T Score values are as follows: -----R Neck: -1.2 -----L Neck: -1.9 -----R Total: -0.1 -----L Total: 0.0 Bone mineral density has: DECREASED -2.5 % since study of: 2017 IMPRESSION: No evidence for osteoporosis or osteopenia. NOTE: T-SCORE=SD OF THE YOUNG ADULT MEAN.
--- NOTE | 2020-06-17 10:45 | MM ---
Reason for exam: screening (asymptomatic). Last mammogram was performed 1 year and 9 months ago. History: Patient is postmenopausal and has history of high-risk lesion on a previous biopsy at age 77. High risk MG pre op needle loc LT of the left breast, September 12, 2017. High risk MG stereo VAD BX LT of the left breast, September 01, 2017. Took estrogen for 26 years 6 months beginning at age 50. Physical Findings: A clinical breast exam by your physician is recommended on an annual basis and results should be correlated with mammographic findings. MG 3D Screening Mammo W/Cad Bilateral CC and MLO view(s) were taken. Prior study comparison: September 27, 2018, right breast MG 3d diag mammo w/cad RT. August 14, 2017, bilateral MG 3d screening mammo w/cad. The breast tissue is heterogeneously dense. This may lower the sensitivity of mammography. Finding #1: Architectural distortion in the left breast consistent with known excisional changes. Finding #2: There are typically benign vascular, round calcifications in both breasts. There is a chronic nodularity in the right breast. There is no discrete abnormality. Surgical changes left posterior upper outer quadrant. Left pacemaker. ASSESSMENT: Benign, BI-RAD 2 RECOMMENDATION: Routine screening mammogram of both breasts in 1 year.
== END | disposition home or self-care (01) ==
LOC: RADMAMWWP 13:25
PROVIDERS: ATTEND Family Medicine
DX: Z12.31 Encounter for screening mammogram for malignant neoplasm of breast (principal); Z78.0 Asymptomatic menopausal state
CPT/HCPCS: 77063; 77067; 77080

== ENCOUNTER → 2020-07-06 | Outpatient (CLI) | payer MEDICARE ==
--- NOTE | 2020-07-07 07:07 | CT ---
EXAMINATION TYPE: CT chest w con DATE OF EXAM: 07/06/2020 COMPARISON: Chest CT December 23, 2019 and older CTs HISTORY: Enlarged lymph nodes. CT DLP: 546 mGycm. Automated Exposure Control for Dose Reduction was Utilized. TECHNIQUE: CT scan of the thorax is performed following with IV Contrast, patient injected with 100 mL of Isovue M300. FINDINGS: LUNGS: Low lung volumes with elevated right hemidiaphragm redemonstrated. Stable 3 mm medial left upp er lobe nodule or calcified granuloma axial image 6 on current study. Atelectatic change and/or Limit ed consolidation along just above right hemidiaphragm redemonstrated along with mild linear scarring in the anterior right lower lung. No new pleural effusion or pneumothorax seen bilaterally. Additiona l mild to moderate left basilar linear scarring and/or atelectasis remains present. MEDIASTINUM:There are stable prominent bilateral hilar lymph nodes . No new or enlarging greater than 1 cm thoracic lymph nodes. No pericardial effusion is seen. No cardiomegaly. Dual lead pacemaker is redemonstrated. Stable heterogeneous 2.1 x 1.3 cm lesion inferior to the left thyroid lobe and the a nterior superior mediastinum axial image 6 from several prior studies. OTHER: Small sized hiatal hernia is stable. Cholecystectomy clips redemonstrated. Visualized liver l ow density consistent with diffuse fatty infiltration. Surgical clips deep in the left breast redemon strated. IMPRESSION: No suspicious new mass or enlarging adenopathy. Stable 2.1 x 1.3 cm oval heterogeneous ma ss anterior superior mediastinum, suspect possible exophytic thyroid nodule given the chronic stabili ty.
== END ==
LOC: RADCTMAIN 12:56
PROVIDERS: ATTEND Internal Medicine
DX: R59.0 Localized enlarged lymph nodes (principal); J98.59 Other diseases of mediastinum, not elsewhere classified; K44.9 Diaphragmatic hernia without obstruction or gangrene
CPT/HCPCS: 82565; 84520; 71260; 36415; Q9967

== ENCOUNTER → 2020-09-08 | Outpatient (CLI) | payer MEDICARE ==
[2020-09-08 16:41] LABS: Basophils # (A) 0.1 k/uL (0-0.2); Basophils % (A) 1 %; Eosinophils # (A) 0.4 k/uL (0-0.7); Eosinophils % (A) 3 %; HGB 15.7 gm/dL (11.4-16.0); Lymphocytes # (A) 3.8 k/uL (1.0-4.8); Lymphocytes % (A) 26 %; MCH 29.4 pg (25.0-35.0); MCV 91.8 fL (80.0-100.0); Mean Platelet Volume 9.9; Monocytes # (A) 0.7 k/uL (0-1.0); Monocytes % (A) 5 %; Neutrophils # (A) 9.1 k/uL (1.3-7.7); Neutrophils % (A) 63 %; Platelet Count 233 k/uL (150-450); RBC 5.34 m/uL (3.80-5.40); RDW 14.7 % (11.5-15.5); WBC 14.4 k/uL (3.8-10.6)
[2020-09-08 16:52] LABS: ALT 16 U/L (4-34); AST 24 U/L (14-36); African American GFR (CKD) >90 (>60 ml/min/1.73 sqM); Albumin 4.3 g/dL (3.5-5.0); Alkaline Phosphatase 91 U/L (38-126); Anion Gap 9 mmol/L; Blood Urea Nitrogen 19 mg/dL (7-17); Calcium 9.5 mg/dL (8.4-10.2); Carbon Dioxide 29 mmol/L (22-30); Chloride 100 mmol/L (98-107); Creatine Kinase 34 U/L (30-135); Glucose 215 mg/dL (74-99); Magnesium 1.8 mg/dL (1.6-2.3); Non-African American GFR(CKD) 83 (>60 ml/min/1.73 sqM); Potassium 4.3 mmol/L (3.5-5.1); Sodium 138 mmol/L (137-145); Total Bilirubin 0.6 mg/dL (0.2-1.3); Total Protein 7.2 g/dL (6.3-8.2)
--- NOTE | 2020-09-08 18:52 | CT ---
EXAMINATION TYPE: CT brain brooke serrato DATE OF EXAM: 09/08/2020 COMPARISON: None HISTORY: fall 09/02/20, heamatoma on right forehead, follow up CT DLP: 1133.3 mGycm Automated exposure control for dose reduction was used. There is cerebral cortical atrophy. There is hypodensity in the periventricular white matter. There i s no mass effect nor midline shift. There is no sign of intracranial hemorrhage. The calvarium is int act. There is normal aeration of the mastoid sinuses. There is large right frontal scalp hematoma shannon t measures up to 12 mm in thickness. There are some small midline air bubbles measuring up to 7 mm along the cerebral falx in the parietal lobe. This could be inadvertent venous air injection. The cervical vertebra show a very minimal C4-5 subluxation. There is multilevel cervical hypertrophic facet arthropathy. There is disc space narrowing and spurring at C5-6. Prevertebral soft tissues are intact. IMPRESSION: Cerebral atrophy and chronic small vessel ischemia. No acute intracranial abnormality. Large right fr ontal scalp hematoma. Intracranial air bubbles which could BE in the sagittal sinus from inadvertent injection. Spondylotic changes in the lower cervical spine. No fracture.
== END | disposition home or self-care (01) ==
LOC: RADCTMAIN 16:20
PROVIDERS: ATTEND Nurse Practitioner
DX: G31.9 Degenerative disease of nervous system, unspecified (principal); I99.8 Other disorder of circulatory system; M47.892 Other spondylosis, cervical region; T79.6XXD Traumatic ischemia of muscle, subsequent encounter; S09.90XD Unspecified injury of head, subsequent encounter
CPT/HCPCS: 36415; 70450; 72125; 80053; 82550; 83735; 85025

== ENCOUNTER 2020-09-18 15:45 | Emergency (ER) | payer MEDICARE ==
[2020-09-18 15:53] VITALS: BP 165/79; PULSE 94; RESP 18; TEMP 98.2
--- NOTE | 2020-09-18 16:59 | ED ---
General Adult HPI - General Chief complaint: Recheck/Abnormal Lab/Rx Stated complaint: Hematoma on forehead Time Seen by Provider: 09/18/20 16:12 Source: patient Mode of arrival: ambulatory Limitations: no limitations - History of Present Illness Initial comments: 80-year-old female presents to emergency Department with chief complaint of hematoma. Patient reports on September 04 she suffered a slip and fall with a hematoma of the scalp. States she also had arterial bleed and head. Several sutures along with nonabsorbable sutures. States at the beginning of September she went to her primary care physician remove the nonabsorbable sutures but now she continues to have a small leak from the incision site. States she's also had a hematoma. States she went to her foot doctor today who advised that the hematoma did not appear well and she needed to be evaluated. He did apply gauze and Coban around. Patient is on eliquis . She denies any headaches, vision changes, one-sided weakness or paresthesias. - Related Data Home Medications Medication Instructions Recorded Confirmed Cholecalciferol (Vitamin D3) 2,000 unit PO HS 07/28/16 12/20/19 [Vitamin D3] Latanoprost [Xalatan 0.005%] 1 drop BOTH EYES HS 07/28/16 12/20/19 Levothyroxine Sodium [Synthroid] 25 mcg PO QAM 07/28/16 12/20/19 amLODIPine BESYLATE/BENAZEPRIL 1 cap PO HS 07/28/16 12/20/19 [Lotrel 10-20 MG] sitaGLIPtin PHOSPHATE [Januvia] 100 mg PO DAILY 08/31/17 12/20/19 Ascorbic Acid [Vitamin C] 1,000 mg PO DAILY 12/20/19 12/20/19 Mermentau-3 Fatty Acids/Fish Oil [Fish 1 cap PO DAILY 12/20/19 12/20/19 Oil 1,000 mg Softgel] Rosuvastatin [Crestor] 10 mg PO HS 12/20/19 12/20/19 Previous Rx's Medication Instructions Recorded Acetaminophen [Tylenol Arthritis] 650 mg PO Q6HR #90 tab 12/24/19 Cyclobenzaprine [Flexeril] 5 mg PO TID #30 tablet 12/24/19 Allergies Allergy/AdvReac Type Severity Reaction Status Date / Time No Known Allergies Allergy Verified 08/06/21 15:53 Review of Systems ROS Statement: Those systems with pertinent positive or pertinent negative responses have been documented in the HPI. ROS Other: All systems not noted in ROS Statement are negative. Past Medical History Past Medical History: Diabetes Mellitus, Hyperlipidemia, Hypertension, Thyroid Disorder Additional Past Medical History / Comment(s): GLAUCOMA. OSTEOPENIA. LOWER LEG EDEMA, REDNESS. History of Any Multi-Drug Resistant Organisms: C-DIFF Date of last positivie culture/infection: 2013 MDRO Source:: stool Past Surgical History: Cholecystectomy, Ear Surgery, Hysterectomy, Orthopedic Surgery, Tonsillectomy Additional Past Surgical History / Comment(s): bilateral knee replacements Past Anesthesia/Blood Transfusion Reactions: Postoperative Nausea & Vomiting (PONV) Past Psychological History: No Psychological Hx Reported Smoking Status: Never smoker Past Alcohol Use History: None Reported Past Drug Use History: None Reported - Past Family History Mother Family Medical History: Diabetes Mellitus, Hypertension Father Family Medical History: Cancer, Diabetes Mellitus, Hypertension General Exam Limitations: no limitations General appearance: alert, in no apparent distress Head exam: Present: atraumatic, normocephalic. Absent: normal inspection (Small hematoma noted on the right side of the forehead.) Eye exam: Present: normal appearance, PERRL, EOMI Pupils: Present: normal accommodation ENT exam: Present: normal exam, normal oropharynx, mucous membranes moist Neck exam: Present: normal inspection, full ROM. Absent: tenderness Respiratory exam: Present: normal lung sounds bilaterally. Absent: respiratory distress Cardiovascular Exam: Present: regular rate, normal rhythm, normal heart sounds Extremities exam: Present: normal inspection, full ROM Back exam: Present: normal inspection, full ROM Neurological exam: Present: alert, oriented X3, CN II-XII intact, normal gait Psychiatric exam: Present: normal affect, normal mood Skin exam: Present: warm, dry, intact, normal color Course Vital Signs 09/18/20 15:48 Temperature 98.2 F Pulse Rate 94 Respiratory 18 Rate Blood Pressure 165/79 O2 Sat by Pulse 90 L Oximetry Medical Decision Making - Medical Decision Making It-year-old female presents emergency Department with a chief complaint of hematoma. Once remove the pressure dressing, the hematoma has greatly decreased in size. The is also agreeable. I put a new dressing on with Coban over the hematoma. I advised the patient to stop using the Sergey for 24 hours. Advised to keep using the pressure dressing. Advised to follow with the primary care physician. Strict return parameters were thoroughly discussed the patient is understanding and agreeable Disposition Clinical Impression: Hematoma of scalp Disposition: HOME SELF-CARE Condition: Stable Instructions (If sedation given, give patient instructions): Hematoma (ED) Additional Instructions: Please return to the Emergency Department if symptoms worsen or any other concerns. Is patient prescribed a controlled substance at d/c from ED?: No Referrals: Moises Beckford MD [Primary Care Provider] - 1-2 days Time of Disposition: 16:58
== END 2020-09-18 17:22 | disposition home or self-care (01) ==
LOC: EC 15:45
DX: S00.03XA Contusion of scalp, initial encounter (principal); E11.9 Type 2 diabetes mellitus without complications; I10 Essential (primary) hypertension; E78.5 Hyperlipidemia, unspecified; E07.9 Disorder of thyroid, unspecified; Z79.890 Hormone replacement therapy; Z79.899 Other long term (current) drug therapy; Z79.84 Long term (current) use of oral hypoglycemic drugs; W01.198A Fall on same level from slipping, tripping and stumbling with subsequent striking against other object, initial encounter
CPT/HCPCS: 99283

== ENCOUNTER 2021-01-13 07:41 | Day surgery (SDC) | payer MEDICARE, OTHER ==
[2021-01-06 11:07] VITALS: BMI 44.9
[~2021-01-13 07:41] MED LIST changes: -DEXAMETHASONE SOD PHOSPHATE 10 MG/ML 1 ML VIAL IV ONE; -HEPARIN SODIUM,PORCINE 5,000 UNIT/ML 1 ML VIAL SQ ONE; -MIDAZOLAM 2 MG/2 ML VIAL IV PRN; -ONDANSETRON 4 MG/2 ML VIAL IVP ONE; -SCOPOLAMINE 1.5MG/72HR PATCH TRANSDERM ONE; -ceFAZolin IN SWFI 2 GM/20 ML SYRINGE IVP ONE; -fentaNYL (PF) 50 MCG/ML 2 ML AMP IV PRN
--- NOTE | 2021-01-13 08:03 | P.GSHP ---
History of Present Illness H&P Date: 01/13/21 CHIEF COMPLAINT: Colon screen HISTORY OF PRESENT ILLNESS: The patient is a 80-year-old female who presents for colon screen. Lower endoscopy was offered for further evaluation and management. PAST MEDICAL HISTORY: Please see list. PAST SURGICAL HISTORY: Please see list. MEDICATIONS: Please see list. ALLERGIES: Please see list. SOCIAL HISTORY: No illicit drug use FAMILY HISTORY: No reports of Crohn disease or ulcerative colitis. REVIEW OF ORGAN SYSTEMS: CONSTITUTIONAL: No reports of fevers or chills. PHYSICAL EXAM: VITAL SIGNS: Stable GENERAL: Well-developed pleasant in no acute distress. HEENT: No scleral icterus. Extraocular movements grossly intact. Moist buccal mucosa. NECK: Supple without lymphadenopathy. CHEST: Unlabored respirations. Equal bilateral excursions. CARDIOVASCULAR: Regular rate and rhythm. Distal 2+ pulses. ABDOMEN: Soft, nontender, nondistended. MUSCULOSKELETAL: No clubbing, cyanosis, or edema. ASSESSMENT: 1. Colon screen. PLAN: 1. Recommend proceeding with a lower endoscopy Past Medical History Past Medical History: Diabetes Mellitus, Hyperlipidemia, Hypertension, Thyroid Disorder Additional Past Medical History / Comment(s): GLAUCOMA. OSTEOPENIA. Lymphedema LOWER LEGs wears compression stockings and wraps, urinary incontinence-uses harjinder pads , recent changes in bowel pattern History of Any Multi-Drug Resistant Organisms: C-DIFF Date of last positivie culture/infection: 2013 MDRO Source:: stool Past Surgical History: Breast Surgery, Cholecystectomy, Ear Surgery, Hysterectomy, Joint Replacement, Orthopedic Surgery, Pacemaker, Tonsillectomy Additional Past Surgical History / Comment(s): bilateral knee replacements. partial thyroidectomy right. lt breast biopsy-benign Past Anesthesia/Blood Transfusion Reactions: Motion Sickness, Postoperative Nausea & Vomiting (PONV) Type of Cardiac Device: Permanent Pacemaker Device Placement Date:: 2018 Smoking Status: Never smoker - Past Family History Mother Family Medical History: Diabetes Mellitus, Hypertension Father Family Medical History: Cancer, Diabetes Mellitus, Hypertension Medications and Allergies Home Medications Medication Instructions Recorded Confirmed Type Cholecalciferol (Vitamin D3) 2,000 unit PO HS 07/28/16 01/06/21 History [Vitamin D3] Latanoprost [Xalatan 0.005%] 1 drop BOTH EYES HS 07/28/16 01/06/21 History Levothyroxine Sodium [Synthroid] 25 mcg PO QAM 07/28/16 01/06/21 History amLODIPine BESYLATE/BENAZEPRIL 1 cap PO HS 07/28/16 01/06/21 History [Lotrel 10-20 MG] sitaGLIPtin PHOSPHATE [Januvia] 100 mg PO DAILY 08/31/17 01/06/21 History Dolph-3 Fatty Acids/Fish Oil [Fish 1 cap PO BID 12/20/19 01/06/21 History Oil 1,000 mg Softgel] Rosuvastatin [Crestor] 10 mg PO HS 12/20/19 01/06/21 History Acetaminophen [Tylenol Arthritis] 1,300 mg PO BID 01/06/21 01/06/21 History Apixaban [Eliquis] 5 mg PO BID 01/06/21 01/06/21 History Calcium Carbonate/Vitamin D3 1 each PO DAILY 01/06/21 01/06/21 History [Calcium 500 mg-Vit D3 5 mcg (200 Unit)] Hydrochlorothiazide 12.5 mg PO DAILY PRN 01/06/21 01/06/21 History [hydroCHLOROthiazide] Vitamin E (Dl,Tocopheryl Acet) 200 unit PO HS 01/06/21 01/06/21 History [Vitamin E] Zinc 50 mg PO DAILY 01/06/21 01/06/21 History Allergies Allergy/AdvReac Type Severity Reaction Status Date / Time No Known Allergies Allergy Verified 01/06/21 10:47
[2021-01-13 08:12] VITALS: TEMP 97.3
[2021-01-13] MEDS ORDERED: LIDOCAINE 1% (10MG/ML) FOR IV START INTRADERMA ONE (08:15)
[2021-01-13 08:17] LABS: Glucose,Whole Blood 210 mg/dL (75-99)
[2021-01-13] MEDS ORDERED: PROPOFOL 10 MG/ML 20 ML VIAL IV ONE (08:26)
--- NOTE | 2021-01-13 08:46 | P.PCN ---
Date of Procedure: 01/13/21 Description of Procedure: PREOPERATIVE DIAGNOSIS: Personal history colon polyps Chronic anticoagulation due to atrial fibrillation Morbid obesity due to excess calories, BMI 43.1 Colonoscopy screening. POSTOPERATIVE DIAGNOSIS: Personal history colon polyps Scattered diverticulosis Chronic anticoagulation due to atrial fibrillation Morbid obesity due to excess calories, BMI 43.1 Colonoscopy screening. OPERATION: Colonoscopy to the cecum, ileocecal valve and appendiceal orifice. SURGEON: Salena Orosco MD. ANESTHESIA: MAC. INDICATIONS: The patient is a 80-year-old female who presents for colonoscopy screening. Last colonoscopy 5 years ago. Benefits and risks were described and informed consent was obtained. DESCRIPTION OF PROCEDURE: The patient had undergone Sutab prep. The patient had been brought into the operating room and laid in the left lateral decubitus position. After adequate intravenous sedation, the rectum was examined with 2% lidocaine jelly. No external hemorrhoids were encountered. The rectal tone was within normal limits. No lesions were palpated in the rectal vault. An Olympus colonoscope was advanced until the cecum, ileocecal valve and appendiceal orifice were clearly viewed. The prep was good. Scattered diverticulosis was encountered. No colonic polyps were found. No evidence of focal colitis was found. Retroflexion of the scope demonstrated grade 1 internal hemorrhoids without active bleeding or inflammation. The colon was desufflated. The patient had tolerated the procedure well. Withdrawal time was over 6 minutes. FINDINGS: Aronchick preparation quality scale 2 (1-5) Internal hemorrhoids, grade 1 No external prolapsed hemorrhoids. No arteriovenous malformations. No adenomatous polyps. No focal colitis. RECOMMENDATIONS: Lower endoscopy as needed due to patient's high personal risks. May consider Cologaurd as an alternative Plan - Discharge Summary Discharge Rx Participant: No New Discharge Prescriptions: Continue amLODIPine BESYLATE/BENAZEPRIL [Lotrel 10-20 MG] 1 cap PO HS Levothyroxine Sodium [Synthroid] 25 mcg PO QAM Latanoprost [Xalatan 0.005%] 1 drop BOTH EYES HS Cholecalciferol (Vitamin D3) [Vitamin D3] 2,000 unit PO HS sitaGLIPtin PHOSPHATE [Januvia] 100 mg PO DAILY [place]-3 Fatty Acids/Fish Oil [Fish Oil 1,000 mg Softgel] 1 cap PO BID Rosuvastatin [Crestor] 10 mg PO HS Hydrochlorothiazide [hydroCHLOROthiazide] 12.5 mg PO DAILY PRN PRN Reason: Edema Apixaban [Eliquis] 5 mg PO BID Calcium Carbonate/Vitamin D3 [Calcium 500 mg-Vit D3 5 mcg (200 Unit)] 1 each PO DAILY Zinc 50 mg PO DAILY Vitamin E (Dl,Tocopheryl Acet) [Vitamin E] 200 unit PO HS Acetaminophen [Tylenol Arthritis] 1,300 mg PO BID Discharge Medication List Cholecalciferol (Vitamin D3) [Vitamin D3] 2,000 unit PO HS 07/28/16 [History] Latanoprost [Xalatan 0.005%] 1 drop BOTH EYES HS 07/28/16 [History] Levothyroxine Sodium [Synthroid] 25 mcg PO QAM 07/28/16 [History] amLODIPine BESYLATE/BENAZEPRIL [Lotrel 10-20 MG] 1 cap PO HS 07/28/16 [History] sitaGLIPtin PHOSPHATE [Januvia] 100 mg PO DAILY 08/31/17 [History] [place]-3 Fatty Acids/Fish Oil [Fish Oil 1,000 mg Softgel] 1 cap PO BID 12/20/19 [History] Rosuvastatin [Crestor] 10 mg PO HS 12/20/19 [History] Acetaminophen [Tylenol Arthritis] 1,300 mg PO BID 01/06/21 [History] Apixaban [Eliquis] 5 mg PO BID 01/06/21 [History] Calcium Carbonate/Vitamin D3 [Calcium 500 mg-Vit D3 5 mcg (200 Unit)] 1 each PO DAILY 01/06/21 [History] Hydrochlorothiazide [hydroCHLOROthiazide] 12.5 mg PO DAILY PRN 01/06/21 [History] Vitamin E (Dl,Tocopheryl Acet) [Vitamin E] 200 unit PO HS 01/06/21 [History] Zinc 50 mg PO DAILY 01/06/21 [History] Follow up Appointment(s)/Referral(s): Salena Orosco MD [STAFF PHYSICIAN] - 1 Week Patient Instructions/Handouts: *Surgery [facility] - (Anesthesia) Endoscopy Discharge Instructions, Colonoscopy (DC), Diverticulosis (ED), Diverticulosis Diet (GEN) Activity/Diet/Wound Care/Special Instructions: Colonoscopy as needed. Alternatively, may consider Cologaurd due to patient's high risk Discharge Disposition: HOME SELF-CARE
[2021-01-13 09:06] VITALS: BP 132/78; PULSE 78; RESP 18
== END 2021-01-13 09:21 | disposition home or self-care (01) ==
LOC: ORWHC2ENDO 07:41
PROVIDERS: ATTEND Surgery Plastic and Reconstructive Surgery
DX: Z12.11 Encounter for screening for malignant neoplasm of colon (principal); E66.01 Morbid (severe) obesity due to excess calories; E11.9 Type 2 diabetes mellitus without complications; I10 Essential (primary) hypertension; E78.5 Hyperlipidemia, unspecified; M85.80 Other specified disorders of bone density and structure, unspecified site; I44.2 Atrioventricular block, complete; R32 Unspecified urinary incontinence; E07.9 Disorder of thyroid, unspecified; H40.9 Unspecified glaucoma; Z95.0 Presence of cardiac pacemaker; Z86.010 Personal history of colon polyps; Z68.41 Body mass index [BMI] 40.0-44.9, adult; Z79.01 Long term (current) use of anticoagulants; Z79.899 Other long term (current) drug therapy
CPT/HCPCS: J2704; G0105

== ENCOUNTER → 2021-11-16 | Outpatient (CLI) | payer MEDICARE ==
--- NOTE | 2021-11-17 08:08 | MM ---
Reason for Exam: Screening (asymptomatic). Last mammogram was performed 1 year(s) and 5 month(s) ago. Patient History: Menarche at age 13. First Full-Term at age 20. Hysterectomy at age 42. Postmenopausal. Estrogen, starting at age 50 for 26 years, 6 months. 09/12/2017, High risk Core Biopsy on the left side. 09/01/2017, High risk Core Biopsy on the left side. Risk Values: Parisa 5 year model risk: 2.2%. NCI Lifetime model risk: 3.1%. Prior Study Comparison: 07/04/2018 Left Diagnostic Mammogram, [facility]. 09/27/2018 Right Diagnostic Mammogram, [facility]. 06/16/2020 Bilateral Screening Mammogram, [facility]. Tissue Density: There are scattered fibroglandular densities. Findings: Analyzed By CAD. There is no suspicious group of microcalcifications or new suspicious mass in either breast. Overall Assessment: Negative, BI-RAD 1 Management: Screening Mammogram of both breasts in 1 year. A clinical breast exam by your physician is recommended on an annual basis and results should be correlated with mammographic findings. [facility] will attempt to contact patient to return for supplemental views and ultrasound if indicated. Electronically signed and approved by: Sudheer Merritt DO
== END | disposition home or self-care (01) ==
LOC: RADMAMWWP 15:50
PROVIDERS: ATTEND Family Medicine
DX: Z12.31 Encounter for screening mammogram for malignant neoplasm of breast (principal)
CPT/HCPCS: 77063; 77067

== ENCOUNTER → 2023-01-12 | Outpatient (CLI) | payer MEDICARE ==
--- NOTE | 2023-01-12 13:16 | BD ---
EXAMINATION TYPE: Axial Bone Density DATE OF EXAM: 01/12/2023 CLINICAL HISTORY: 82 years old Female. ICD-10 CODE: Z78.0 MENOPAUSAL STATE Height: 58.5 in Weight: 222 lbs RISK FACTORS HISTORY OF: Active: moderate Postmenopausal woman: partial hysterectomy age 50 Take estrogen and/or progesterone medications: not now How long: took for approximately 5 years Lost more than 2 inches in height since high school: yes 3 " MEDICATIONS: Thyroid Medications: yes Which medication: Levothyroxine How Lon+ years Additional Medications: calcium, vit d, cholesterol meds, blood pressure meds, EXAM MEASUREMENTS: Bone mineral densitometry was performed using the mktg System. Bone mineral density as measured about the Lumbar spine is: ----- L1-L4(G/cm2): 1.298 T Score Values are as follows: ----- L1: 0.7 ----- L2: 1.8 ----- L3: 1.3 ----- L4: 0.2 ----- L1-L4: 1.0 Z Score Values are as follows: ----- L1: 1.4 ----- L2: 2.5 ----- L3: 2.0 ----- L4: 0.9 ----- L1-L4: 1.7 Bone mineral density has: Increased 0.7% since study of: 06/16/2020 Bone mineral density about the R hip (g/cm2): 0.968 Bone mineral density about the L hip (g/cm2): 0.954 T Score values are as follows: -----R Neck: -1.5 -----L Neck: -1.8 -----R Total: -0.3 -----L Total: -0.4 Z Score values are as follows: -----R Neck: 0.0 -----L Neck: -0.3 -----R Total: 1.0 -----L Total: 0.9 Bone mineral density has: Decreased -3.8% since study of: 06/16/2020 FRAX%s: The graph provided illustrates a 12.2% chance for a major osteoporotic fx and a 3.2% chance f or the hips probability for fx in 10 years time. IMPRESSION: Normal (Values between +1 and -1 indicate normal bone mass). Consider repeating this study in 5 year s or sooner if there is some new clinical indication. NOTE: T-SCORE=SD OF THE YOUNG ADULT MEAN.
--- NOTE | 2023-01-13 13:54 | MM ---
Reason for Exam: Screening (asymptomatic). Last mammogram was performed 1 year(s) and 1 month(s) ago. Patient History: Menarche at age 13. First Full-Term at age 20. Hysterectomy at age 42. Postmenopausal. Breast cancer, left, at or over age 50. Estrogen, starting at age 50 for 26 years, 6 months. 09/12/2017, High risk Core Biopsy on the left side. 09/01/2017, High risk Core Biopsy on the left side. Prior Study Comparison: 07/29/2016 Bilateral Screening Mammogram, [facility]. 08/14/2017 Bilateral Screening Mammogram, [facility]. 08/29/2017 Left Diagnostic Mammogram, [facility]. 07/04/2018 Left Diagnostic Mammogram, [facility]. 09/27/2018 Right Diagnostic Mammogram, [facility]. 06/16/2020 Bilateral Screening Mammogram, [facility]. 11/16/2021 Bilateral MG 3D screening mammo w/cad, [facility]. Tissue Density: There are scattered fibroglandular densities. Findings: Analyzed By CAD. Left breast surgical clips There is no suspicious group of microcalcifications or new suspicious mass. Overall Assessment: Benign, BI-RAD 2 Management: Screening Mammogram of both breasts in [address] [facility] will attempt to contact patient to return for supplemental views and ultrasound if indicated. Patient should continue monthly self-breast exams. A clinical breast exam by your physician is recommended on an annual basis. This exam should not preclude additional follow-up of suspicious palpable abnormalities. Note on Parisa scores and lifetime risk: 1. A Parisa score greater than 3% is considered moderate risk. If this is the case, consider specialist referral to assess eligibility for a risk reducing agent. 2. If overall lifetime risk for the development of breast cancer is 20% or higher, the patient may qualify for future screening with alternating mammogram and breast MRI. Electronically signed and approved by: Sudheer Merritt DO
== END | disposition home or self-care (01) ==
LOC: RADMAMWWP 11:19
PROVIDERS: ATTEND Family Medicine
DX: Z12.31 Encounter for screening mammogram for malignant neoplasm of breast (principal); M85.89 Other specified disorders of bone density and structure, multiple sites; Z85.3 Personal history of malignant neoplasm of breast; Z78.0 Asymptomatic menopausal state
CPT/HCPCS: 77063; 77067; 77080

== ENCOUNTER 2023-10-12 21:38 | Emergency (ER) | payer MEDICARE ==
--- NOTE | 2023-10-12 22:01 | ED ---
Female Urogenital HPI - General Chief complaint: Urogenital Stated complaint: bladder inf Time Seen by Provider: 10/12/23 21:50 Source: patient, RN notes reviewed Mode of arrival: ambulatory Limitations: no limitations - History of Present Illness Initial comments: 83-year-old female presents emergency department complaint of urinary symptoms. Patient states that send 1700 this evening she has been experiencing an increase in urinary frequency with a decrease in output and dysuria. She denies hematuria, flank pain, nausea, vomiting, fevers or chills. Endorses mild suprapubic pelvic discomfort. denies recent antibiotic use. denies changes in bowel habits. - Related Data Home Medications Medication Instructions Recorded Confirmed Cholecalciferol (Vitamin D3) 2,000 unit PO HS 07/28/16 01/13/21 [Vitamin D3] Latanoprost [Xalatan 0.005%] 1 drop BOTH EYES HS 07/28/16 01/13/21 Levothyroxine Sodium [Synthroid] 25 mcg PO QAM 07/28/16 01/13/21 amLODIPine BESYLATE/BENAZEPRIL 1 cap PO HS 07/28/16 01/13/21 [Lotrel 10-20 MG] sitaGLIPtin PHOSPHATE [Januvia] 100 mg PO DAILY 08/31/17 01/13/21 [place]-3 Fatty Acids/Fish Oil [Fish 1 cap PO BID 12/20/19 01/13/21 Oil 1,000 mg Softgel] Rosuvastatin [Crestor] 10 mg PO HS 12/20/19 01/13/21 Acetaminophen [Tylenol Arthritis] 1,300 mg PO BID 01/06/21 01/13/21 Apixaban [Eliquis] 5 mg PO BID 01/06/21 01/13/21 Calcium Carbonate/Vitamin D3 1 each PO DAILY 01/06/21 01/13/21 [Calcium 500 mg-Vit D3 5 mcg (200 Unit)] Vitamin E (Dl,Tocopheryl Acet) 200 unit PO HS 01/06/21 01/13/21 [Vitamin E] Zinc 50 mg PO DAILY 01/06/21 01/13/21 hydroCHLOROthiazide 12.5 mg PO DAILY PRN 01/06/21 01/13/21 Previous Rx's Medication Instructions Recorded Nitrofurantoin Monohyd/M-Cryst 100 mg PO Q12HR #14 cap 10/12/23 [Macrobid] Allergies Allergy/AdvReac Type Severity Reaction Status Date / Time No Known Allergies Allergy Verified 10/12/23 21:51 Review of Systems ROS Statement: Those systems with pertinent positive or pertinent negative responses have been documented in the HPI. ROS Other: All systems not noted in ROS Statement are negative. Past Medical History Past Medical History: Diabetes Mellitus, Hyperlipidemia, Hypertension, Thyroid Disorder Additional Past Medical History / Comment(s): GLAUCOMA. OSTEOPENIA. LOWER LEG EDEMA, REDNESS. History of Any Multi-Drug Resistant Organisms: C-DIFF Date of last positivie culture/infection: 2013 MDRO Source:: stool Past Surgical History: Cholecystectomy, Ear Surgery, Hysterectomy, Orthopedic Surgery, Tonsillectomy Additional Past Surgical History / Comment(s): bilateral knee replacements Past Anesthesia/Blood Transfusion Reactions: Postoperative Nausea & Vomiting (PONV) Type of Cardiac Device: Permanent Pacemaker Device Placement Date:: 2018 Past Psychological History: No Psychological Hx Reported Smoking Status: Never smoker Past Alcohol Use History: None Reported Past Drug Use History: None Reported - Past Family History Mother Family Medical History: Diabetes Mellitus, Hypertension Father Family Medical History: Cancer, Diabetes Mellitus, Hypertension General Exam - General Exam Comments Initial Comments: Visual Physical Exam Vital signs reviewed General: Well-appearing, nontoxic, no acute distress. Head: Normocephalic, atraumatic Eyes: PERRLA, EOMI ENT: Airway patent Chest: Nonlabored breathing Skin: No visual rash, normal skin tone Neuro: Alert and oriented 3 Musculoskeletal: No gross abnormalities Limitations: no limitations General appearance: alert, in no apparent distress Head exam: Present: atraumatic, normocephalic, normal inspection Eye exam: Present: normal appearance, PERRL, EOMI. Absent: scleral icterus, conjunctival injection, periorbital swelling ENT exam: Present: normal exam, mucous membranes moist Neck exam: Present: normal inspection. Absent: tenderness, meningismus, lymphadenopathy Respiratory exam: Present: normal lung sounds bilaterally. Absent: respiratory distress, wheezes, rales, rhonchi, stridor Cardiovascular Exam: Present: regular rate, normal rhythm, normal heart sounds. Absent: systolic murmur, diastolic murmur, rubs, gallop, clicks GI/Abdominal exam: Present: soft, tenderness (suprapubic), normal bowel sounds. Absent: distended, guarding, rebound, rigid Extremities exam: Present: normal inspection, full ROM, normal capillary refill. Absent: tenderness, pedal edema, joint swelling, calf tenderness Back exam: Present: normal inspection Skin exam: Present: warm, dry, intact, normal color. Absent: rash Course Vital Signs 10/12/23 21:48 Temperature 97.9 F Pulse Rate 101 H Respiratory 20 Rate Blood Pressure 173/83 O2 Sat by Pulse 94 L Oximetry Medical Decision Making - Medical Decision Making Was pt. sent in by a medical professional or institution (, [facility], TRUCK TERMINAL MANAGER, urgent care, hospital, or snf...) When possible be specific @ -No Did you speak to anyone other than the patient for history (EMS, parent, family, police, friend...)? What history was obtained from this source @ -No Did you review nursing and triage notes (agree or disagree)? Why? @ -I reviewed and agree with nursing and triage notes Were old charts reviewed (outside hosp., previous admission, EMS record, old EKG, old radiological studies, urgent care reports/EKG's, snf records)? Report findings @ -No old charts were reviewed Differential Diagnosis (chest pain, altered mental status, abdominal pain women, abdominal pain men, vaginal bleeding, weakness, fever, dyspnea, syncope, headache, dizziness, GI bleed, back pain, seizure, CVA, palpatations, mental health, musculoskeletal)? @ -Differential Abdominal Pain Women: Appendicitis, Cholecystitis, diverticulosis, ischemic bowel, pancreatitis, hepatitis, UTI, gastroenteritis, AAA, incarcerated hernia, bowel obstruction, constipation, inflammatory bowel, hepatitis, peptic ulcer disease, splenic infarction, perforated viscus, vulvitis, ovarian torsion, PID, kidney stone, placenta abruption, this is not meant to be an all-inclusive list EKG interpreted by me (3pts min.). @ -none X-rays interpreted by me (1pt min.). @ -None done CT interpreted by me (1pt min.). @ -None done U/S interpreted by me (1pt. min.). @ -None done What testing was considered but not performed or refused? (CT, X-rays, U/S, labs)? Why? @ -Lab such as CBC, CMP were considered but deferred. Additionally CT imaging was preferred. Patient's symptoms of dysuria and increased urinary frequency and urgency occurred approximately 4 hours before arrival to the emergency department. There are no red flag symptoms concerning for systemic infection therefore labs are deferred patient to CT imaging. Patient did agree with this plan. What meds were considered but not given or refused? Why? @ -None Did you discuss the management of the patient with other professionals (professionals i.e. , PA, TRUCK TERMINAL MANAGER, lab, RT, psych nurse, social media marketer, software project manager, teacher, parole or probation officer, oil field caser)? Give summary @ -No Was smoking cessation discussed for >3mins.? @ -No Was critical care preformed (if so, how long)? @ -No Were there social determinants of health that impacted care today? How? (Homelessness, low income, unemployed, alcoholism, drug addiction, transportation, low edu. Level, literacy, decrease access to med. care, half-way, rehab)? @ -No Was there de-escalation of care discussed even if they declined (Discuss DNR or withdrawal of care, Hospice)? DNR status @ -No What co-morbidities impacted this encounter? (DM, HTN, Smoking, COPD, CAD, Cancer, CVA, ARF, Chemo, Hep., AIDS, mental health diagnosis, sleep apnea, morbid obesity)? @ -None Was patient admitted / discharged? Hospital course, mention meds given and route, prescriptions, significant lab abnormalities, going to OR and other pertinent info. @ -Discharge. 83-year-old female with urinary discomfort. Examination patient has mild suprapubic tenderness to palpation. Vitals are stable no signs of tachycardia or fever. Patient's urinalysis remarkable for infection including red blood cells, white blood cells, nitrates and white blood cell clumps. Patient provided with dose of Rocephin in the emergency department sent a prescription for Macrobid. Additionally, urine sent for culture for further evaluation. Instruct patient complete full course of antibiotics as prescribed and follow-up with her primary care provider next week for further evaluation. All questions answered at bedside and strict return parameters hunter with the patient she is verbalized understanding. Discussed with Dr. Huizar Undiagnosed new problem with uncertain prognosis? @ -No Drug Therapy requiring intensive monitoring for toxicity (Heparin, Nitro, Insulin, Cardizem)? @ -No Were any procedures done? @ -No Diagnosis/symptom? @ -Urinary tract infection Acute, or Chronic, or Acute on Chronic? @ -Acute Uncomplicated (without systemic symptoms) or Complicated (systemic symptoms)? @ -Uncomplicated Side effects of treatment? @ -No Exacerbation, Progression, or Severe Exacerbation? @ -No Poses a threat to life or bodily function? How? (Chest pain, [place], NV, pneumonia, PE, COPD, DKA, ARF, appy, cholecystitis, CVA, Diverticulitis, Homicidal, Suicidal, threat to staff... and all critical care pts) @ -No - Lab Data Lab Results 10/12/23 Range/Units 21:50 Urine Color Yellow Urine Appearance Cloudy H (Clear) Urine pH 5.5 (5.0-8.0) Ur Specific Lilly 1.025 (1.001-1.035) Urine Protein 1+ H (Negative) Urine Glucose (UA) Negative (Negative) Urine Ketones Negative (Negative) Urine Blood Large H (Negative) Urine Nitrite Positive H (Negative) Urine Bilirubin Negative (Negative) Urine Urobilinogen <2.0 (<2.0) mg/dL Ur Leukocyte Esterase Large H (Negative) Urine RBC 141 H (0-5) /hpf Urine WBC >182 H (0-5) /hpf Urine WBC Clumps Rare H (None) /hpf Ur Squamous Epith Cells 2 (0-4) /hpf Urine Mucus Rare H (None) /hpf Disposition Clinical Impression: UTI (urinary tract infection) Disposition: HOME SELF-CARE Condition: Good Instructions (If sedation given, give patient instructions): Urinary Tract Infection in Women (ED) Additional Instructions: Return the emergency department for any new or worsening symptoms. complete full course of antibiotics as prescribed. Recommend follow-up with your primary care provider next week for further evaluation. Prescriptions: Nitrofurantoin Monohyd/M-Cryst [Macrobid] 100 mg PO Q12HR #14 cap Is patient prescribed a controlled substance at d/c from ED?: No Referrals: Moises Beckford MD [Primary Care Provider] - 1-2 days Time of Disposition: 22:56
[2023-10-12 22:36] LABS: Appearance,Urine Cloudy (Clear); Bilirubin,Urine Negative (Negative); Blood,Urine Large (Negative); Color,Urine Yellow; Glucose,Urine (UA) Negative (Negative); Ketones,Urine Negative (Negative); Leukocyte Esterase,Urine Large (Negative); Mucus,Urine Rare /hpf; Nitrite,Urine Positive (Negative); PH, Urine 5.5 (5.0-8.0); Protein,Urine 1+ (Negative); RBC,Urine 141 /hpf (0-5); Specific Gravity,Urine 1.025 (1.001-1.035); Squamous Epithelial Cell,Urine 2 /hpf (0-4); Urobilinogen,Urine <2.0 mg/dL (<2.0); WBC,Urine >182 /hpf (0-5)
[2023-10-12] MEDS: cefTRIAXone 1,000 MG VIAL (IM USE) IM STA (23:34)
[2023-10-13 00:48] VITALS: BP 160/78; PULSE 97; RESP 18; TEMP 98
== END 2023-10-12 23:42 | disposition home or self-care (01) ==
LOC: EC 21:38
CPT/HCPCS: 81001; 87077; 87086; 87186; 96372; 99283

== ENCOUNTER → 2024-01-15 | Outpatient (CLI) | payer MEDICARE ==
--- NOTE | 2024-01-16 15:29 | MM ---
Reason for Exam: Screening (asymptomatic). Last mammogram was performed 1 year(s) and 1 month(s) ago. Patient History: Menarche at age 13. First Full-Term at age 20. Hysterectomy at age 42. Postmenopausal. Estrogen, starting at age 50 for 26 years, 6 months. 09/12/2017, High risk Core Biopsy on the left side. 09/01/2017, High risk Core Biopsy on the left side. Risk Values: Parisa 5 year model risk: 2.0%. NCI Lifetime model risk: 2.5%. Prior Study Comparison: 07/29/2016 Bilateral Screening Mammogram, [facility]. 08/14/2017 Bilateral Screening Mammogram, [facility]. 08/29/2017 Left Diagnostic Mammogram, [facility]. 07/04/2018 Left Diagnostic Mammogram, [facility]. 09/27/2018 Right Diagnostic Mammogram, [facility]. 06/16/2020 Bilateral Screening Mammogram, [facility]. 11/16/2021 Bilateral MG 3D screening mammo w/cad, [facility]. 01/12/2023 Bilateral MG 3D screening mammo w/cad, [facility]. Tissue Density: There are scattered areas of fibroglandular density. Findings: Analyzed By CAD. Limited assessment left MLO view due to patient's apprehensive mass which compressing near the pacemaker. Asymmetric densities on the right superior MLO is unchanged. Chronic nodularity lateral right breast and unchanged small group lateral calcification right breast. There is no suspicious group of microcalcifications or new suspicious mass in either breast. Overall Assessment: Benign, BI-RAD 2 Management: Screening Mammogram of both breasts in 1 year. Patient should continue monthly self-breast exams. A clinical breast exam by your physician is recommended on an annual basis. This exam should not preclude additional follow-up of suspicious palpable abnormalities. Note on Parisa scores and lifetime risk: 1. A Parisa score greater than 3% is considered moderate risk. If this is the case, consider specialist referral to assess eligibility for a risk reducing agent. 2. If overall lifetime risk for the development of breast cancer is 20% or higher, the patient may qualify for future screening with alternating mammogram and breast MRI. [facility], Workstation: 3, 01/16/2024 3:26 PM. Electronically signed and approved by: Meena Campbell M.D. Radiologist
== END | disposition home or self-care (01) ==
LOC: RADMAMWWP 13:54
PROVIDERS: ATTEND Family Medicine
DX: Z12.31 Encounter for screening mammogram for malignant neoplasm of breast (principal); Z78.0 Asymptomatic menopausal state; R92.323 Mammographic fibroglandular density, bilateral breasts
CPT/HCPCS: 77063; 77067